=== PATIENT | female | born 1955 | race Caucasian/White ===

== ENCOUNTER 2020-10-02 11:45 | Outpatient (REF) | payer OTHER, SELFPAY ==
[2020-10-02 12:38] LABS: Creatinine Urine 40.76 mg/dL; Microalbum/Creatinine Ratio Ur 14.7 ug/mg cr
== END 2020-10-02 11:46 | disposition home or self-care (01) ==
LOC: HO.LNP 11:45
PROVIDERS: Internal Medicine; Visit Provider Hospitalist
DX: N39.0 Urinary tract infection, site not specified (principal)
CPT/HCPCS: 82043; 87086

== ENCOUNTER 2020-11-06 10:33 | Outpatient (REF) | payer OTHER, SELFPAY | END 2020-11-06 10:34 | disposition home or self-care (01) | LOC: HO.LAB 10:33 | PROVIDERS: Visit Provider Nurse Practitioner Family | DX: R30.0 Dysuria (principal) | CPT/HCPCS: 87086 ==

== ENCOUNTER 2020-11-24 15:11 | Outpatient (REF) | payer OTHER, SELFPAY ==
--- NOTE | 2020-11-24 15:17 | XR_ITS ---
EXAMINATION: XR CHEST CLINICAL INFORMATION: Wheezing. COMPARISON: None TECHNIQUE: 2 views of the chest were obtained. FINDINGS: The lungs are well-expanded with increased bilateral interstitial markings. No confluent infiltrate seen. There is no pleural effusion. Heart size is enlarged. Pulmonary vascularity is prominent. No gross bony abnormality seen. XR/XR chest 2V IMPRESSION: Prominent vascular and interstitial markings suggestive of congestion. Mild cardiomegaly.
== END 2020-11-24 15:12 | disposition home or self-care (01) ==
LOC: HO.HMGCX 15:11
PROVIDERS: PCP Internal Medicine; Visit Provider Nurse Practitioner Family
DX: R06.2 Wheezing (principal); R07.81 Pleurodynia
CPT/HCPCS: 71046

== ENCOUNTER 2021-01-07 06:52 | Outpatient (REF) | payer MEDICARE, MEDICAID, SELFPAY ==
[2021-01-07 11:25] LABS: Estimated Average Glucose 131 mg/dL; Hemoglobin A1c % 6.2 %
[2021-01-07 11:56] LABS: Alanine Aminotransferase 19 U/L (0-31); Albumin Level 4.1 g/dL (3.5-5.0); Alkaline Phosphatase 101 U/L (39-117); Aspartate Amino Transferase 21 U/L (5-31); Bilirubin Direct 0.2 mg/dL (0.0-0.5); Bilirubin Total 0.5 mg/dL (0.0-1.0); Cholesterol 156 mg/dL; HDL Cholesterol 47 mg/dL; LDL Cholesterol Calculated 83 mg/dl; Triglycerides 134 mg/dL
== END 2021-01-07 06:53 | disposition home or self-care (01) ==
LOC: HO.HMGCLDS 06:52
PROVIDERS: PCP Internal Medicine; Visit Provider Internal Medicine
DX: E11.9 Type 2 diabetes mellitus without complications (principal); E78.5 Hyperlipidemia, unspecified
CPT/HCPCS: 36415; 80061; 80076; 83036

== ENCOUNTER 2021-04-20 09:26 | Outpatient (REF) | payer MEDICARE, MEDICAID, SELFPAY | END 2021-04-20 09:27 | disposition home or self-care (01) | LOC: HO.LAB 09:26 | PROVIDERS: Visit Provider Nurse Practitioner Family | DX: R30.0 Dysuria (principal) | CPT/HCPCS: 87086 ==

== ENCOUNTER 2021-05-28 07:40 | Outpatient (REF) | payer MEDICARE, MEDICAID, SELFPAY ==
[2021-05-28 11:45] LABS: Estimated Average Glucose 143 mg/dL; Hemoglobin A1c % 6.6 %
[2021-05-28 11:49] LABS: Alanine Aminotransferase 23 U/L (0-31); Anion Gap 13 (12-20); Aspartate Amino Transferase 27 U/L (5-31); Blood Urea Nitrogen 15 mg/dL (9-16); Calcium 9.1 mg/dL (8.4-10.2); Carbon Dioxide 27 mmol/L (22-29); Chloride 106 mmol/L (96-108); Cholesterol 162 mg/dL; Estimated Glomerular Filt Rate > 60; Glucose Fasting 159 mg/dL (60-99); HDL Cholesterol 44 mg/dL; LDL Cholesterol Calculated 91 mg/dl; Potassium 4.9 mmol/L (3.3-5.1); Sodium 141 mmol/L (135-145); Triglycerides 135 mg/dL
[2021-05-28 12:13] LABS: Vitamin D 25-OH Total 29.5 ng/mL (>30)
[2021-05-28 16:56] LABS: Creatinine Urine 110.67 mg/dL; Microalbum/Creatinine Ratio Ur 17.1 ug/mg cr
== END 2021-05-28 07:41 | disposition home or self-care (01) ==
LOC: HO.HMGCLDS 07:40
PROVIDERS: PCP Internal Medicine; Visit Provider Internal Medicine
DX: E11.9 Type 2 diabetes mellitus without complications (principal); E78.5 Hyperlipidemia, unspecified; M85.80 Other specified disorders of bone density and structure, unspecified site; Z78.0 Asymptomatic menopausal state; I10 Essential (primary) hypertension
CPT/HCPCS: 36415; 80048; 80061; 82043; 82306; 83036; 84450; 84460

== ENCOUNTER 2021-07-20 09:17 | Outpatient (REF) | payer MEDICARE, MEDICAID, SELFPAY ==
--- NOTE | ~2021-07-20 | MM_ITS ---
EXAMINATION: BONE DENSITOMETRY CLINICAL INDICATION: Other specified disorders of bone density and structure. COMPARISON: Previous BD dated 12/09/2016 and baseline BD dated 04/29/2009. TECHNIQUE: Using a [employer] DXA System (software version: 13.1) manufactured by [employer], dual-energy x-ray absorptiometry was performed of the lumbar spine and left hip. The images are of good technical quality. Summary results are attached. FINDINGS: AP SPINE L2-L3 (excluding L1 and L4): The data of L1-L4 has been changed to exclude the L1 and L4 vertebral bodies, because degenerative changes at these levels may cause overestimation of lumbar spine density. Current: BMD 1.073 g/cm2, Z-score -0.6, T-score -1.1, osteopenia, 7.3% increase from previous, 9.0% increase from baseline (<5% change is not significant). Prior: BMD 1.000 g/cm2. Baseline: BMD 0.984 g/cm2. LEFT FEMUR, NECK: Current: BMD 0.689 g/cm2, Z-score -1.8, T-score -2.5, osteoporosis. Prior: BMD 0.743 g/cm2. Baseline: BMD 0.701 g/cm2. LEFT FEMUR, TOTAL: Current: BMD 0.732 g/cm2, Z-score -1.8, T-score -2.2, osteopenia, 6.4% decrease from previous, 1.0% increase from baseline (<5% change is not significant). Prior: BMD 0.782 g/cm2. Baseline: BMD 0.725 g/cm2. IDENTIFIED RISK FACTORS: Early menopause, secondary osteoporosis, history of fracture (adult), osteoporosis, height loss, hysterectomy, bilateral oophorectomy. HISTORY OF FRACTURE: Wrist. Lower leg. MEDICATIONS: Calcium supplements or multivitamin, vitamin D. MM/XR DEXA axial skeleton IMPRESSION: 1. DIAGNOSIS: Osteoporosis based on the lowest T-score value of -2.5 in the femoral neck applying World Health Organization criteria. 2. 10-YEAR FRACTURE RISK PREDICTION, FRAX: Major osteoporotic fracture (clinical spine, forearm, hip or shoulder) 18.2%. Hip fracture 3.6%. 3. Treatment Recommendations: NOF guidelines recommend consideration for treatment in postmenopausal women and men age 50 and older presenting with the following: -A hip or vertebral (clinical or morphometric) fracture. -T-score less than or equal to -2.5 at the femoral neck or spine after appropriate evaluation to exclude secondary causes. -Low bone mass at the hip or spine and a 10-year fracture probability by FRAX of greater than or equal to 3% for hip fracture or greater than or equal to 20% for major osteoporotic fracture based on the [place] adapted WHO algorithm. 4. Other Recommendations: All treatment decisions require clinical judgment and consideration of individual patient factors, including patient preferences, comorbidities, previous drug use, risk factors not captured in the FRAX model (e.g. frailty, falls, vitamin D deficiency, increased bone turnover, interval significant decline in bone density) and possible under or overestimation of fracture risk by FRAX. Additional medical evaluation for secondary cause of low bone mineral density may be appropriate. FUTURE SCAN RECOMMENDATION: People with diagnosed cases of osteoporosis or at high risk for fracture should have regular bone mineral density tests. For patients eligible for Medicare, routine testing is allowed once every 2 years. The testing frequency can be increased to one year for patients who have rapidly progressing disease, those who are receiving or discontinuing medical therapy to restore bone mass, or have additional risk factors.
== END 2021-07-20 09:18 | disposition home or self-care (01) ==
LOC: HO.MAMMO 09:17
PROVIDERS: PCP Internal Medicine; Visit Provider Internal Medicine
DX: Z13.820 Encounter for screening for osteoporosis (principal); M81.0 Age-related osteoporosis without current pathological fracture; Z78.0 Asymptomatic menopausal state; Z79.899 Other long term (current) drug therapy; Z87.81 Personal history of (healed) traumatic fracture
CPT/HCPCS: 77080

== ENCOUNTER 2021-08-02 11:57 | Outpatient (REF) | payer MEDICARE, MEDICAID, SELFPAY | END 2021-08-02 11:58 | disposition home or self-care (01) | LOC: HO.LNP 11:57 | PROVIDERS: Visit Provider Hospitalist | DX: R30.0 Dysuria (principal) | CPT/HCPCS: 87086; 87088; 87186 ==

== ENCOUNTER 2021-09-06 08:35 | Outpatient (REF) | payer MEDICARE, MEDICAID, SELFPAY ==
[2021-09-06 11:51] LABS: Estimated Average Glucose 137 mg/dL; Hemoglobin A1c % 6.4 %
[2021-09-06 12:13] LABS: Alanine Aminotransferase 21 U/L (0-31); Anion Gap 12 (12-20); Aspartate Amino Transferase 23 U/L (5-31); Blood Urea Nitrogen 11 mg/dL (9-16); Carbon Dioxide 29 mmol/L (22-29); Chloride 107 mmol/L (96-108); Cholesterol 164 mg/dL; Estimated Glomerular Filt Rate > 60; Glucose Fasting 136 mg/dL (60-99); HDL Cholesterol 43 mg/dL; LDL Cholesterol Calculated 88 mg/dl; Potassium 4.6 mmol/L (3.3-5.1); Sodium 143 mmol/L (135-145); Triglycerides 165 mg/dL
[2021-09-06 12:14] LABS: Vitamin D 25-OH Total 31.3 ng/mL (>30)
== END 2021-09-06 08:36 | disposition home or self-care (01) ==
LOC: HO.HMGCLDS 08:35
PROVIDERS: PCP Internal Medicine; Visit Provider Internal Medicine
DX: M85.80 Other specified disorders of bone density and structure, unspecified site (principal); E11.9 Type 2 diabetes mellitus without complications; E78.5 Hyperlipidemia, unspecified; I10 Essential (primary) hypertension; Z78.0 Asymptomatic menopausal state
CPT/HCPCS: 36415; 80048; 80061; 82306; 83036; 84450; 84460

== ENCOUNTER 2021-09-30 11:08 | Outpatient (REF) | payer MEDICARE, MEDICAID, SELFPAY | END 2021-09-30 11:09 | disposition home or self-care (01) | LOC: HO.LNP 11:08 | PROVIDERS: Visit Provider Physician Assistant Medical | DX: N39.0 Urinary tract infection, site not specified (principal); R31.9 Hematuria, unspecified | CPT/HCPCS: 87086; 87088 ==

== ENCOUNTER 2021-10-05 10:49 | Emergency (ER) | payer MEDICARE, MEDICAID, SELFPAY ==
[2021-10-05 10:56] VITALS: BP 178/122; PULSE 92; O2SAT 96
[2021-10-05 12:30] VITALS: BP 161/81; PULSE 85; RESP 18; TEMP 36.5; O2SAT 98; BMI 43.5
[2021-10-05 13:42] LABS: Appearance Urine HAZY; Color Urine YELLOW; Glucose Urine UA NEG (NEG); Leukocyte Esterase Urine 2+ (NEG); Nitrite Urine NEG (NEG); UACC Culture Trigger YES; Urine Blood 2+ (NEG); Urine Ketones NEG (NEG); Urine Protein 2+ MG/DL (NEG-TRACE)
[2021-10-05 13:51] LABS: Squamous Epithelial Cell Urine 1+ /LPF
[2021-10-05 13:52] LABS: UACC CULT YES
[2021-10-05 13:54] LABS: Amorphous Sediment Urine 2+ /LPF
[2021-10-05 13:56] LABS: Bacteria Urine 2+ /LPF
--- NOTE | 2021-10-05 15:48 | ED.FEMALEGU ---
HPI - Female Genitourinary General Chief complaint: Urogenital-Female Stated complaint: ? UTI Time Seen by Provider: 10/05/21 15:13 Source: patient Mode of arrival: ambulatory Limitations: no limitations History of Present Illness HPI Narrative: 65 yo female of recurrent UTIs, diabetes, osteoarthritis, HLD, seasonal allergies, chronic low back pain who presenting for evaluation of ongoing urinary symptoms for the last 1 week to 10 days. She was seen in urgent care clinic on September 30 when she started to have dysuria and urinary frequency. She was diagnosed with the UTI and started on Macrobid. She was not having any improvement with the prescribed antibiotics. The provider from the urgent care called her yesterday who told her urine test grew bacteria but to stop taking the prescribed antibiotics she was instructed to go back to the urgent care in 2 days to repeat urine test once ?the antibiotics for out of her system.? Patient states she could not wait another 2 days to get treatment. She reports ongoing burning with urination and urinary frequency. She has no flank pain or back pain. She has no fever, chills, nausea vomiting. No abdominal pain. MD elicited complaint: dysuria and UTI Pertinent past history: recurrent UTIs Onset (ago): week(s) Location of symptoms: suprapubic Severity: moderate Female Urogenital Radiation: Suprapubic Severity scale (1-10): 7 Quality of pain: burning Consistency: constant Vaginal discharge: none Vaginal bleeding: none Urinary symptoms: Dysuria, Urgency, Frequency and Foul Smelling Urine Exacerbating factors: urination Relieving factors: none Associated symptoms: denies other symptoms Treatment prior to arrival: none Sexual activity: No Patient : No Related Data Home Medications Medication Instructions Recorded Confirmed montelukast 10 mg tablet 10 mg PO BEDTIME 08/20/20 05/31/21 omega-3 fatty acids 1,000 mg 2,000 mg PO DAILY 08/20/20 05/31/21 capsule flu vac [id number] 36mos up(PF) ml IM 10/02/20 05/31/21 Previous Rx's Medication Instructions Recorded blood sugar diagnostic (FreeStyle See Rx Instructions .ROUTE DAILY 11/17/20 Lite Strips) #50 strip levocetirizine 5 mg tablet 5 mg PO BEDTIME #30 tab 11/17/20 ketotifen fumarate 0.025 % (0.035 1 drp OPHTHALMIC (EYE) Q12H PRN #5 01/11/21 %) eye drops ml nabumetone 750 mg tablet 750 mg PO DAILY PRN #30 tab 02/03/21 albuterol sulfate 90 mcg/actuation 2 puff INHALATION QID PRN #8.5 g 05/19/21 aerosol inhaler (Ventolin HFA) metformin 500 mg tablet,extended 500 mg PO DAILY #90 tab 06/21/21 release 24 hr atorvastatin 10 mg tablet 10 mg PO . every other day 90 Days 09/01/21 #45 tab cholecalciferol (vitamin D3) 50 50 mcg PO DAILY #90 cap 09/09/21 mcg (2,000 unit) capsule nitrofurantoin 100 mg PO Q12H 7 Days #14 cap 09/30/21 monohydrate/macrocrystals 100 mg capsule (Macrobid) levofloxacin 500 mg tablet 500 mg PO DAILY #10 tab 10/05/21 Allergies Allergy/AdvReac Type Severity Reaction Status Date / Time No Known Allergies Allergy Verified 08/02/21 09:28 [No Known Allergies*] pollen Allergy Intermediate nasal Uncoded 10/02/20 10:06 congestion Review of Systems Review of Systems: Constitutional: No Fever, No Chills Cardiovascular: No Chest Pain, No SOB Gastrointestinal: No Nausea, No Vomiting, No Diarrhea, No abdominal Pain Genitourinary: + Dysuria, + Urinary Frequency, No Hematuria, +Urinary urgency Musculoskeletal: No joint pain, No Myalgias Skin: No Skin Lesions, No rash Neuro: No Dizziness, No Headache Heme/Lymph: No Bruising, No Lymphadenopathy Endocrine: No Polyuria, No Polydipsia PMFSH Past Medical History Medical History Allergic conjunctivitis Dyslipidemia Herniation of lumbar intervertebral disc with radiculopathy History of cervical cancer Osteoarthritis of knees, bilateral Osteopenia Paresthesia of skin Postmenopause Pulmonary nodule, right Seasonal allergic rhinitis Type 2 diabetes mellitus without complication, with no history of insulin use Surgical History History of cholecystectomy History of lumbar laminectomy Hx of total hysterectomy Family History Family History Father Coronary artery disease COPD (chronic obstructive pulmonary disease) Mother Diabetes mellitus Hypertension Daughter Breast cancer Mental health disorder Sister Breast cancer Social History Social History Alcohol intake: never Patient Tobacco Use Status: Former Tobacco user Tobacco use type: Cigarette Years Smoked: 21 e-Cigarette/Vaping Use: Never Used Second Hand Smoke Exposure: No Advance Directives: No Advance Directives Information Provided: No Patient : No Physical Exam Vital Signs: Vital Signs: Last Vital Signs Temp 98.2 F 10/05/21 16:17 Pulse 86 10/05/21 16:17 Resp 16 10/05/21 16:17 BP 166/86 H 10/05/21 16:17 Pulse Ox 96 10/05/21 16:17 Body Mass Index 43.5 Appearance: Alert. Oriented X3. No acute distress. HEENT: normal external inspection. Neck: Normal inspection. Neck supple. CVS: Normal heart rate and rhythm. Pulses normal. Respiratory: No respiratory distress. Breath sounds normal. Abdomen: Obese, soft and nontender. +BS x4 no CVA tenderness. Skin: Skin warm and dry. Normal skin color. Normal skin turgor. No rashes. Extremities: Normal inspection, normal range of motion. Neuro: Oriented X 3. Grossly normal, nonfocal. Course Course Course Narrative: 65-year-old female presenting to the ER with ongoing urinary symptoms off of antibiotics, with a known UTI. Her urine culture from 09-30 is growing aerococcus urinae and aerococcus viridans. These bacteria are typically susceptible to nitrofurantoin however there is growing antibiotic resistance. Attempted to call the lab to add on sensitivities, however her urine has been discarded. A repeat urine has been sent and is consistent with ongoing infection. Will plan to treat for a full 10 days with Levaquin as this is a known antibiotic to cover these bacteria. She reports in the past she has required treatment with a 10 day course of antibiotics. She has an appoint with her primary care doctor next month. We discussed signs and symptoms of ascending urinary tract infection that should prompt urgent re-evaluation and she expressed understanding. She is stable for discharge home with oral antibiotics, 1st dose given here. MDM - Female Genitourinary Lab Data Labs: Lab Results 10/05/21 Range/Units 13:35 Urine Color YELLOW Urine Appearance HAZY Urine pH 7.0 (5.0-8.0) Ur Specific [place] 1.010 (1.005-1.025) Urine Protein 2+ H (NEG-TRACE) MG/DL Urine Glucose (UA) NEG (NEG) MG/DL Urine Ketones NEG (NEG) MG/DL Urine Blood 2+ H (NEG) Urine Nitrite NEG (NEG) Ur Leukocyte Esterase 2+ H (NEG) Urine RBC 10-14 H (0) /HPF Urine WBC 10-14 H (0-4) /HPF Ur Squamous Epith Cells 1+ /LPF Amorphous Sediment 2+ /LPF Urine Bacteria 2+ /LPF Discharge Plan Discharge Clinical Impression: Acute UTI Patient Disposition: Home, Self-Care Instructions: Urinary Tract Infection in Women (ED) Additional Instructions: Take the prescribed antibiotic as directed, starting tomorrow. Your given the 1st dose in the ER. Drink plenty of fluid, stay hydrated. If you have continuing worsening symptoms or develops any vomiting, fevers, middle back pain or flank pain come back to the ER for re-evaluation of a possible kidney infection. Prescriptions: New levofloxacin 500 mg tablet 500 mg PO DAILY Qty: 10 RF: 0 No Action levocetirizine 5 mg tablet 5 mg PO BEDTIME Qty: 30 RF: 4 blood sugar diagnostic [FreeStyle Lite Strips] Strip See Rx Instructions .ROUTE DAILY Qty: 50 RF: 8 nabumetone 750 mg tablet 750 mg PO DAILY PRN (Reason: for pain) Qty: 30 RF: 1 albuterol sulfate [Ventolin HFA] 90 mcg/actuation HFA aerosol inhaler 2 puff inhalation QID PRN (Reason: shortness of breath or wheezing) Qty: 8.5 RF: 4 metformin 500 mg tablet extended release 24 hr 500 mg PO DAILY Qty: 90 RF: 2 atorvastatin 10 mg tablet 10 mg PO . every other day 90 Days Qty: 45 RF: 2 cholecalciferol (vitamin D3) 50 mcg (2,000 unit) capsule 50 mcg PO DAILY Qty: 90 RF: 2 montelukast 10 mg tablet 10 mg PO BEDTIME RF: 0 omega-3 fatty acids 1,000 mg capsule 2,000 mg PO DAILY RF: 0 ketotifen fumarate 0.025 % (0.035 %) drops 1 drp ophthalmic (eye) Q12H PRN (Reason: allergy symptoms) Qty: 5 RF: 0 Afluria Qd 2018-(3yr up)(PF) 60 mcg (15 mcg x 4)/0.5 mL syringe IM RF: 0 nitrofurantoin monohyd/m-cryst [Macrobid] 100 mg capsule 100 mg PO Q12H 7 Days Qty: 14 RF: 0 Interventions: ED Discharge Assessment Last Done: 10/05/21 16:25 Discharge Date/Time: 10/05/21 16:26
[2021-10-05 16:17] VITALS: BP 166/86; PULSE 86; RESP 16; TEMP 36.8; O2SAT 96
[2021-10-05] MEDS: levoFLOXacin 750 MG TABLET PO (16:17)
== END 2021-10-05 16:26 | disposition home or self-care (01) ==
PROVIDERS: Emergency Provider Emergency Medicine; PCP Internal Medicine
DX: N39.0 Urinary tract infection, site not specified (principal); R30.0 Dysuria; F17.210 Nicotine dependence, cigarettes, uncomplicated; Z71.6 Tobacco abuse counseling; Z79.899 Other long term (current) drug therapy
CPT/HCPCS: 81001; 87086; 99283; 99284

== ENCOUNTER 2021-10-26 16:33 | Outpatient (REF) | payer MEDICARE, MEDICAID, SELFPAY | END 2021-10-26 16:34 | disposition home or self-care (01) | LOC: HO.LNP 16:33 | PROVIDERS: Visit Provider Internal Medicine | DX: N39.0 Urinary tract infection, site not specified (principal) | CPT/HCPCS: 87086 ==

== ENCOUNTER 2021-12-01 10:10 | Outpatient (REF) | payer MEDICARE, MEDICAID, SELFPAY ==
--- NOTE | ~2021-12-01 | US_ITS ---
EXAMINATION: US RETROPERITONEAL LIMITED (RENAL ONLY) CLINICAL INFORMATION: Urinary tract infection, site not specified. COMPARISON: Renal ultrasound 05/29/2015. Chest CT scans most recent April 2019. TECHNIQUE: Real-time imaging of the kidneys. FINDINGS: RIGHT KIDNEY: 12.0 x 5.3 x 7.5 cm (SAG x AP x TRV). The kidney is normal in size, contour, and echogenicity. Renal cortical thickness is normal. There is moderate right hydronephrosis and dilatation of the visualized right proximal ureter. No renal calculi or focal parenchymal lesions. LEFT KIDNEY: 13.1 x 4.7 x 5.6 cm (SAG x AP x TRV). The kidney is normal in size, contour, and echogenicity. Renal cortical thickness is normal. There is mild left hydronephrosis. No renal calculi or focal parenchymal lesions. US/US renal BI IMPRESSION: Bilateral hydronephrosis, right greater than left. This is new from previous exams.
== END 2021-12-01 10:11 | disposition home or self-care (01) ==
LOC: HO.HMGCX 10:10
PROVIDERS: Visit Provider Internal Medicine
DX: R10.30 Lower abdominal pain, unspecified (principal); N39.0 Urinary tract infection, site not specified
CPT/HCPCS: 76775

== ENCOUNTER 2021-12-27 08:45 | Outpatient (REF) | payer MEDICARE, MEDICAID, SELFPAY ==
[2021-12-27 11:40] LABS: Blood Urea Nitrogen 10 mg/dL (9-16); Estimated Glomerular Filt Rate > 60
== END 2021-12-27 08:46 | disposition home or self-care (01) ==
LOC: HO.HMGCLDS 08:45
PROVIDERS: Visit Provider Urology
DX: N13.39 Other hydronephrosis (principal)
CPT/HCPCS: 36415; 82565; 84520

== ENCOUNTER 2022-05-12 07:49 | Outpatient (REF) | payer MEDICARE, MEDICAID, SELFPAY ==
[2022-05-12 11:30] LABS: Estimated Average Glucose 131 mg/dL; Hemoglobin A1c % 6.2 %
[2022-05-12 11:32] LABS: Alanine Aminotransferase 17 U/L (0-31); Anion Gap 12 (12-20); Aspartate Amino Transferase 19 U/L (5-31); Blood Urea Nitrogen 12 mg/dL (9-16); Calcium 8.6 mg/dL (8.4-10.2); Carbon Dioxide 29 mmol/L (22-29); Chloride 105 mmol/L (96-108); Cholesterol 157 mg/dL; Estimated Glomerular Filt Rate > 60; Glucose Fasting 149 mg/dL (60-99); HDL Cholesterol 44 mg/dL; LDL Cholesterol Calculated 91 mg/dl; Potassium 4.3 mmol/L (3.3-5.1); Sodium 142 mmol/L (135-145); Triglycerides 111 mg/dL
[2022-05-12 11:38] LABS: Creatinine Urine 77.27 mg/dL; Microalbum/Creatinine Ratio Ur 494.3 ug/mg cr
[2022-05-12 11:52] LABS: Vitamin D 25-OH Total 27.4 ng/mL (>30)
== END 2022-05-12 07:50 | disposition home or self-care (01) ==
LOC: HO.HMGCLDS 07:49
PROVIDERS: Visit Provider Internal Medicine
DX: E11.9 Type 2 diabetes mellitus without complications (principal); E78.5 Hyperlipidemia, unspecified; M85.852 Other specified disorders of bone density and structure, left thigh; I10 Essential (primary) hypertension; Z78.0 Asymptomatic menopausal state
CPT/HCPCS: 36415; 80048; 80061; 82043; 82306; 83036; 84450; 84460

== ENCOUNTER 2022-09-19 08:33 | Outpatient (REF) | payer MEDICARE, MEDICAID, SELFPAY ==
[2022-09-19 12:27] LABS: Alanine Aminotransferase 15 U/L (0-31); Anion Gap 18 (12-20); Aspartate Amino Transferase 22 U/L (5-31); Blood Urea Nitrogen 18 mg/dL (9-16); Carbon Dioxide 28 mmol/L (22-29); Chloride 101 mmol/L (96-108); Cholesterol 172 mg/dL; Estimated Glomerular Filt Rate > 60; Glucose Fasting 119 mg/dL (60-99); HDL Cholesterol 52 mg/dL; LDL Cholesterol Calculated 93 mg/dl; Potassium 4.5 mmol/L (3.3-5.1); Sodium 142 mmol/L (135-145); Triglycerides 139 mg/dL
[2022-09-19 12:32] LABS: Creatinine Urine 111.32 mg/dL; Estimated Average Glucose 131 mg/dL; Hemoglobin A1c % 6.2 %; Microalbum/Creatinine Ratio Ur 110.4 ug/mg cr
== END 2022-09-19 08:34 | disposition home or self-care (01) ==
LOC: HO.HMGCLDS 08:33
PROVIDERS: PCP Internal Medicine; Visit Provider Internal Medicine
DX: M85.852 Other specified disorders of bone density and structure, left thigh (principal); E11.9 Type 2 diabetes mellitus without complications; E78.5 Hyperlipidemia, unspecified
CPT/HCPCS: 36415; 80048; 80061; 82043; 82306; 83036; 84450; 84460

== ENCOUNTER 2023-01-16 08:34 | Outpatient (REF) | payer MEDICARE, MEDICAID, SELFPAY ==
[2023-01-16 12:09] LABS: Creatinine Urine 124.93 mg/dL; Microalbum/Creatinine Ratio Ur 63.2 ug/mg cr
[2023-01-16 12:36] LABS: Alanine Aminotransferase 13 U/L (0-31); Anion Gap 12 (12-20); Aspartate Amino Transferase 17 U/L (5-31); Blood Urea Nitrogen 13 mg/dL (9-16); Calcium 8.9 mg/dL (8.4-10.2); Carbon Dioxide 28 mmol/L (22-29); Chloride 106 mmol/L (96-108); Cholesterol 107 mg/dL; Estimated Glomerular Filt Rate > 60; Glucose Fasting 117 mg/dL (60-99); HDL Cholesterol 41 mg/dL; LDL Cholesterol Calculated 50 mg/dl; Potassium 4.2 mmol/L (3.3-5.1); Sodium 142 mmol/L (135-145); Triglycerides 82 mg/dL
[2023-01-16 12:40] LABS: Estimated Average Glucose 128 mg/dL; Hemoglobin A1c % 6.1 %
[2023-01-16 12:44] LABS: Vitamin D 25-OH Total 34.9 ng/mL (>30)
== END 2023-01-16 08:35 | disposition home or self-care (01) ==
LOC: HO.HMGCLDS 08:34
PROVIDERS: PCP Internal Medicine; Visit Provider Internal Medicine
DX: E11.9 Type 2 diabetes mellitus without complications (principal); E78.5 Hyperlipidemia, unspecified; M85.80 Other specified disorders of bone density and structure, unspecified site; Z78.0 Asymptomatic menopausal state
CPT/HCPCS: 36415; 80048; 80061; 82043; 82306; 83036; 84450; 84460

== ENCOUNTER 2023-03-10 08:03 | Outpatient (REF) | payer MEDICARE, MEDICAID, SELFPAY ==
[2023-03-10 12:33] LABS: Anion Gap 12 (12-20); Blood Urea Nitrogen 17 mg/dL (9-16); Calcium 8.9 mg/dL (8.4-10.2); Carbon Dioxide 31 mmol/L (22-29); Chloride 105 mmol/L (96-108); Estimated Glomerular Filt Rate > 60; Glucose Fasting 123 mg/dL (60-99); Potassium 4.6 mmol/L (3.3-5.1); Sodium 143 mmol/L (135-145)
== END 2023-03-10 08:04 | disposition home or self-care (01) ==
LOC: HO.HMGCLDS 08:03
PROVIDERS: PCP Internal Medicine; Visit Provider Internal Medicine
DX: I48.91 Unspecified atrial fibrillation (principal); E11.9 Type 2 diabetes mellitus without complications
CPT/HCPCS: 36415; 80048

== ENCOUNTER 2023-06-08 07:24 | Outpatient (REF) | payer MEDICARE, MEDICAID, SELFPAY ==
[2023-06-08 11:12] LABS: MANUAL DIFF FLAG NO
[2023-06-08 11:52] LABS: Basophils Absolute Auto 0.1 X10*3/uL (0.0-0.2); Eosinophils Absolute Auto 0.2 X10*3/uL (0.0-0.4); Eosinophils Percent Auto 3.1 % (0-4); Hematocrit 39.9 % (37.0-47.0); Hemoglobin 12.4 g/dl (12.0-16.0); Imm Gran Abs Auto 0.26 X10*3/uL (0.00-0.03); Imm Gran Pct Auto 4.5 % (0.0-0.4); Lymphocytes Absolute Auto 1.4 X10*3/uL (1.2-4.9); Lymphocytes Percent Auto 24.6 % (20-40); Mean Corpuscular HGB Conc 31.1 g/dl (31.0-35.0); Mean Corpuscular Hemoglobin 30.5 pg (27.0-33.0); Monocytes Absolute Auto 0.5 X10*3/uL (0.1-1.2); Monocytes Percent Auto 7.8 % (2-11); Neutrophils Absolute Auto 3.4 x10*3/uL (2.0-8.3); Platelet Count 200 X10*3/uL (160-400); Red Blood Count 4.07 X10*6/uL (4.20-5.50); Red Cell Distribution Width 14.2 % (11.0-16.0); White Blood Count 5.8 X10*3/uL (4.8-10.8)
[2023-06-08 14:20] LABS: Estimated Average Glucose 108 mg/dL; Hemoglobin A1c % 5.4 %
[2023-06-08 14:30] LABS: Alanine Aminotransferase 14 U/L (0-31); Anion Gap 13 (12-20); Aspartate Amino Transferase 18 U/L (5-31); Blood Urea Nitrogen 20 mg/dL (9-16); Calcium 9.3 mg/dL (8.4-10.2); Carbon Dioxide 29 mmol/L (22-29); Chloride 105 mmol/L (96-108); Cholesterol 166 mg/dL; Estimated Glomerular Filt Rate > 60; Glucose Fasting 116 mg/dL (60-99); HDL Cholesterol 56 mg/dL; LDL Cholesterol Calculated 90 mg/dl; Potassium 5.1 mmol/L (3.3-5.1); Sodium 142 mmol/L (135-145); Triglycerides 104 mg/dL; Vitamin D 25-OH Total 31.3 ng/mL (>30)
== END 2023-06-08 07:25 | disposition home or self-care (01) ==
LOC: HO.HMGCLDS 07:24
PROVIDERS: PCP Internal Medicine; Visit Provider Internal Medicine
DX: E11.9 Type 2 diabetes mellitus without complications (principal); E78.5 Hyperlipidemia, unspecified; Z78.0 Asymptomatic menopausal state
CPT/HCPCS: 36415; 80048; 80061; 82306; 83036; 84450; 84460; 85025

== ENCOUNTER 2023-06-13 10:39 | Outpatient (AMB) | payer MEDICARE, MEDICAID, SELFPAY ==
--- NOTE | 2023-06-13 11:40 | A.OFFPC_ITS ---
Vital Signs 06/13/23 11:53 Height 5 ft 6 in Weight 248 lb BMI 40.0 BP 122/64 Blood Pressure Location Lt brachial Position Sitting Pulse 70 Pulse Source Pulse Oximeter Pulse Oximetry (%) 95 Oxygen Delivery Method Room Air Intake Visit Reasons: dm,lipids,htn Intake Note: Pt is here today to f/u DM, lipids and HTN Allergies No Known Allergies [No Known Allergies*] Allergy (Verified 10/25/23 14:33) pollen Allergy (Intermediate, Uncoded 10/25/23 14:33) nasal congestion Medication List - Last Reconciled 06/13/23 by Ramona Damico MD albuterol sulfate 90 mcg/actuation 2 puffs inhalation Q6H PRN amiodarone 400 mg PO DAILY apixaban (Eliquis) 5 mg PO Q12H atorvastatin 10 mg PO . every other day 90 days blood sugar diagnostic (FreeStyle Lite Strips) Check fasting blood sugar daily daily; cholecalciferol (vitamin D3) 50 mcg PO DAILY furosemide 20 mg PO QAM metformin ER 500 mg PO DAILY methenamine hippurate 1 g PO BID mirabegron ER (Myrbetriq) 50 mg PO DAILY omega-3 fatty acids 2,000 mg PO DAILY Tobacco use date assessed: 06/13/23 Fall risk assessment: No Falls in past year Last assessed Fall Risk: 06/13/23 Dental Screening Dental Screen Date: 06/13/23 Did you have a dental visit in the last 12 months?: No Was dental information given to patient?: Patient has dentist HPI dm,lipids,htn HPI Details 67-year-old lady here today for follow-u p of her diabetes mellitus, hyperlipidemia and hypertension. She is currently taking metformin ER 500 mg once a day, [place] 3 fatty acid supplements 2000 mg daily in addition to atorvastatin 10 mg taken every other day, and is also on furosemide 20 mg in a.m. [facility] Medical History (Updated 12/15/23 @ 06:07 by Ramona Damico MD) Diabetes mellitus with microalbuminuria, without long-term current use of insulin History of cardioversion History of atrial fibrillation Urinary bladder incontinence Recurrent UTI (urinary tract infection) Postmenopause Pulmonary nodule, right Osteoarthritis of knees, bilateral Paresthesia of skin History of cervical cancer Herniation of lumbar intervertebral disc with radiculopathy Seasonal allergic rhinitis Osteopenia Dyslipidemia Surgical History History of cholecystectomy History of lumbar laminectomy Hx of total hysterectomy Family History Father Coronary artery disease COPD (chronic obstructive pulmonary disease) Mother Diabetes mellitus Hypertension Daughter Breast cancer Mental health disorder Sister Breast cancer Social History Housing: Apartment Alcohol intake: never Patient Tobacco Use Status: Former Tobacco user Tobacco use type: Cigarette Years Smoked: 21 e-Cigarette/Vaping Use: Never Used Second Hand Smoke Exposure: No Current occupational status: retired Cognitive needs: No Hearing needs: No Vision needs: Yes Questionnaire Thrive Questionnaire Date Thrive assessed: 01/18/23 ROB-7 AMB Questionnaire ROB-7 Date ROB - 7 assessed: 01/18/23 Source: Developed by Drs. Adalid Butler, Sosa Hayes, Pio Alex and colleagues, with an educational carrie from [employer]. Review of Systems Const Denies fever(s) and Denies headache(s) Eyes Details: Overdue for her diabetes retinopathy screening Denies change in vision ENT Denies dizziness, Denies headache(s), Denies nasal congestion, Denies nasal discharge and Denies sore throat Card Denies chest pain, Denies lightheadedness, Denies palpitations and Denies dyspnea Resp Denies chest congestion, Denies cough, Denies dyspnea and Denies wheezing GI Denies change in bowel habits Details: Currently seeing Dr. Stoner her urologist for recurrent urinary tract infection Musc Reports as per HPI, Reports abnormal gait, Denies numbness and Reports stiffness Skin/Breast Denies breast mass, Denies lesions and Denies rash Neuro Reports abnormal gait, Denies dizziness, Denies headache(s) and Denies numbness Endo Denies polydipsia, Denies polyuria and Denies palpitations Scottie/Lymph Denies easy bruising Aller/Immun Denies seasonal rhinorrhea and Denies wheezing Physical exam (Primary Care) Vital Signs: Last Vital Signs Pulse 70 06/13/23 11:53 BP 122/64 06/13/23 11:53 Pulse Ox 95 06/13/23 11:53 Oxygen Delivery Method Room Air 06/13/23 11:53 BMI result Body Mass Index 40.0 Tobacco/Smoking Status: Tobacco use Status Tobacco use date assessed 06/13/23 06/13/23 11:42 Patient Tobacco Use Status Former Tobacco user 06/13/23 11:42 Tobacco use type Cigarette 06/13/23 11:42 e-Cigarette/Vaping Use Never Used 06/13/23 11:42 Thrive Assessment: Date of Thrive Assessment Date Thrive assessed 01/18/23 06/13/23 11:42 Const Other: Alert oriented x3, no acute distress noted, morbidly obese, ambulatory with aid of walker and grandson present in room [facility] Mouth: Normal oral and palatal mucosa present and moist mucous membranes Eyes General: appearance normal, both eyes and all related structures Neck Neck: Yes normal visual inspection, Yes full ROM, Yes no lymphadenopathy and Yes supple Resp Auscultation: clear to auscultation bilaterally Cardio Other: S1-S2 present regular rate and rhythm GI Other: Normal bowel sounds, soft, nontender General: Yes no CVA tenderness Back/Spine/Pelvis Back: no CVA tenderness and No back tenderness Skin General skin exam: no rashes or lesions noted Neuro General: moves all extremities, Normal light touch and pain sensation, no focal motor deficits and CN's II-XI intact bilaterally Extrem General: Yes full ROM, Yes no pedal edema, Yes no calf tenderness and Yes normal gait Results Reviewed Results Reviewed: SPEC : [id number] YI: 06/08/23 STATUS: COMP REQ : [id number] RECD: 06/08/[address]: Ramona Damico MD COMP: 06/08/23 ENTERED: 06/08/[address] [facility] [address]: ORDERED: CBC Auto Diff Test Result Flag Reference Site WBC 5.8 4.8-10.8 X10* 3/uL RBC 4.07 L 4.20-5.50 X10*6/uL HGB 12.4 12.0-16.0 g/dl HCT 39.9 37.0-47.0 % MCV 98.0 80.0-98.0 fL MCH 30.5 27.0-33.0 pg MCHC 31.1 31.0-35.0 g/dl RDW 14.2 11.0-16.0 % PLT 200 160-400 X10*3/uL MPV 11.0 9.4-12.3 fL Neut Pct Auto 59.0 45-73 % ImGran Pct Auto 4.5 H 0.0-0.4 % Lymp Pct Auto 24.6 20-40 % Clare Pct Auto 7.8 2-11 % Eos Pct Auto 3.1 0-4 % Baso Pct Auto 1.0 0-2 % NRBC Pct Auto 0.0 0.0-0.2 /100WBC ANC Neut Abs # 3.4 2.0-8.3 x10*3/uL ImGran Abs Auto 0.26 H 0.00-0.03 X10*3/uL Lymph Abs Auto 1.4 1.2-4.9 X10*3/uL Clare Abs Auto 0.5 0.1-1.2 X10*3/uL Eos Abs Auto 0.2 0.0-0.4 X10*3/uL Baso Abs Auto 0.1 0.0-0.2 X10*3/uL NRBC Abs Auto 0.000 0.0-0.012 X10*3/uL ENTERED: 06/08/[address] [facility] [address]: ORDERED: Met Prof Fast, AST, ALT, Lipid Panel, Vitamin D 25-OH Test Result Flag Reference Site Sodium 142 135-145 mmol/L Potassium 5.1 3.3-5.1 mmol/L CL 105 96-108 mmol/L CO2 29 22-29 mmol/L Gap 13 12-20 BUN 20 H 9-16 mg/dL Creat 0.88 0.5-1.4 mg/dL EGFR > 60 NOTE: For -[place] individuals, multiply the result by 1.210. Chronic Kidney Disease: Estimated GFR < 60 mL/min/1.73m2 Severe Kidney Disease: Estimated GFR < 15 mL/min/1.73m2 FBS 116 H 60-99 mg/dL A fasting glucose from 100-125 mg/dl is considered impaired (pre-diabetes). CA 9.3 8.4-10.2 mg/dL AST (GOT) 18 5-31 U/L ALT (GPT) 14 0-31 U/L Triglyceride 104 mg/dL Desirable Triglyceride: less than 150 mg/dL Borderline High Triglyceride 150-199 mg/dL High Triglyceride: 200-499 mg/dL Very High Triglyceride: greater than or equal to 5OO mg/dL Chol 166 mg/dL Desirable Cholesterol: less than 200 mg/dL Borderline High Cholesterol: 200-239 mg/dL High Cholesterol: greater than 239 mg/dL LDL Calculated 90 mg/dl Desirable LDL: less than 100 mg/dL Near Optimal/Above Optimal LDL: 110-129 mg/dL Borderline High LDL: 130-159 mg/dL High LDL: 160-189 mg/dL Very High LDL: greater than or equal to 190 mg/dL HDL 56 mg/dL Desirable HDL: greater than 40 mg/dL Note: This HDL assay may give artificially low results in patients with liver disease. Vit D 25-OH Tot 31.3 >30 ng/mL Health Based Reference Values* < 20 ng/mL Deficient 20-30 ng/mL Insufficient > 30 ng/mL Sufficient Laboratory Tests 06/08/23 07:28 Estimat Average Glucose 108 Hemoglobin A1c % 5.4 SPEC : [id number] YI: 01/16/23 STATUS: COMP REQ : [id number] RECD: 01/16/[address]: Ramona Damico MD COMP: 01/16/23 ENTERED: 01/16/[address]: ORDERED: MICARU Test Result Flag Reference Creat, Ur 124.93 mg/dL Microalbumin Ur 79.0 mg/L Alb/Creat Ratio 63.2 ug/mg cr Albumin/Creatinine Ratio Reference Ranges: Normal: < 30 ug/mg creatinine Microalbuminuria: 30 - 300 ug/mg creatinine Clinical Albuminuria: > 300 ug/mg creatinine Assessment and Plan Assessment & Plan (1) Diabetes mellitus with microalbuminuria, without long-term current use of insulin: Code(s): E11.29 - Type 2 diabetes mellitus with other diabetic kidney complication; R80.9 - Proteinuria, unspecified Qualifiers: Diabetes mellitus type: type 2 Qualified Code(s): E11.29 - Type 2 diabetes mellitus with other diabetic kidney complication; R80.9 - Proteinuria, unspecified Plan: Recent lab results reviewed with patient, with sugar and hemoglobin A1c stable and at goal with hemoglobin A1c at 5.4%. Continue with metformin ER 500 mg once a day. Reinforced diabetic diet and regular exercise with patient. Counseled regarding importance of yearly diabetes retinopathy screening. Patient advised to inspect feet daily, for any signs of injury, callus or infection. Compliance with diet and regular exercise again stressed. Blood pressure goal is less than 130/80, goal LDL is less than 100 and goal hemoglobin A1c is less than 7% follow-up appointment made in-3--months, after fasting labs done. She is currently using furosemide only for blood pressure control and to control swelling in her legs, advised to be started on an JULIO-inhibitor due to presence of micro albuminuria, but patient declined at present time (2) Dyslipidemia: Code(s): E78.5 - Hyperlipidemia, unspecified Plan: Reviewed recent fasting lipid profile with patient with levels at goal with LDL cholesterol less than 100 mg/dL . Continue with [place] 3 fatty acid supplements and atorvastatin 10 mg 1 tablet every other day , in addition to adherence to low-cholesterol diet and regular exercise, at least 30 minutes 3 to 4 times a week. Advised patient to make healthy food choices, eat more fruits, vegetables, whole grains, wild caught fish and low-fat dairy. Limit amount of meat and fried or fatty food products, as well as processed foods and fast foods. Follow-up scheduled with repeat fasting lipid panel in 3 months. Under get her COVID booster and yearly flu shot, up-to-date with Prevnar 20 and Tdap, recommend also to get shingles vaccine Orders: Orders Basic Metabolic Panel Fasting 3 Months E11.9 - Type 2 diabetes mellitus without complications, E78.5 - Hyperlipidemia, unspecified Hemoglobin A1c 3 Months E11.9 - Type 2 diabetes mellitus without complications, E78.5 - Hyperlipidemia, unspecified Lipid Panel 3 Months E11.9 - Type 2 diabetes mellitus without complications, E78.5 - Hyperlipidemia, unspecified Alanine Aminotransferase 3 Months E11.9 - Type 2 diabetes mellitus without complications, E78.5 - Hyperlipidemia, unspecified Aspartate Amino Transferase 3 Months E11.9 - Type 2 diabetes mellitus without complications, E78.5 - Hyperlipidemia, unspecified Coding Level of Care Code Est Pt Level 4 (00420) Diagnoses Type 2 diabetes mellitus with microalbuminuria, without long-term current use of insulin E11.29; R80.9 Diabetes mellitus type: type 2 Dyslipidemia E78.5
[2023-06-13 11:53] VITALS: BP 122/64; PULSE 70; O2SAT 95; BMI 40.0
== END 2023-06-13 12:24 | disposition home or self-care (01) ==
PROVIDERS: Visit Provider Internal Medicine
DX: E11.29 Type 2 diabetes mellitus with other diabetic kidney complication (principal); R80.9 Proteinuria, unspecified; E78.5 Hyperlipidemia, unspecified
CPT/HCPCS: 99214

== ENCOUNTER 2023-09-11 08:39 | Outpatient (REF) | payer MEDICARE, MEDICAID, SELFPAY ==
[2023-09-11 11:59] LABS: Estimated Average Glucose 105 mg/dL; Hemoglobin A1c % 5.3 % (<6.0)
[2023-09-11 12:05] LABS: Alanine Aminotransferase 20 U/L (0-31); Anion Gap 14 (12-20); Aspartate Amino Transferase 21 U/L (5-31); Blood Urea Nitrogen 15 mg/dL (9-16); Calcium 9.5 mg/dL (8.4-10.2); Carbon Dioxide 28 mmol/L (22-29); Chloride 104 mmol/L (96-108); Cholesterol 161 mg/dL (<200); Estimated Glomerular Filt Rate > 60; Glucose Fasting 105 mg/dL (60-99); HDL Cholesterol 65 mg/dL (>40); LDL Cholesterol Calculated 78 mg/dL (<100); Potassium 4.2 mmol/L (3.3-5.1); Sodium 142 mmol/L (135-145); Triglycerides 92 mg/dL (<150)
== END 2023-09-11 08:40 | disposition home or self-care (01) ==
LOC: HO.HMGCLDS 08:39
PROVIDERS: PCP Internal Medicine; Visit Provider Internal Medicine
DX: E11.9 Type 2 diabetes mellitus without complications (principal); E78.5 Hyperlipidemia, unspecified
CPT/HCPCS: 36415; 80048; 80061; 83036; 84450; 84460

== ENCOUNTER 2023-10-25 13:39 | Outpatient (AMB) | payer MEDICARE, MEDICAID, SELFPAY ==
[2023-10-25 14:16] VITALS: BP 136/78; PULSE 76; O2SAT 96
--- NOTE | 2023-10-25 14:16 | MHC.PC.OV ---
Vital Signs 10/25/23 14:16 Height 5 ft 6 in BMI Reason not done Palliative Care Patient BP 136/78 Blood Pressure Location Rt brachial Position Sitting Pulse 76 Pulse Source Pulse Oximeter Pulse Oximetry (%) 96 Oxygen Delivery Method Room Air Intake Visit Reasons: [facility] sciatic nerve pain Intake Note: Pt was seen at [facility] ER for sciatic nerve pain and wants to follow up for her lab results Allergies No Known Allergies [No Known Allergies*] Allergy (Verified 10/25/23 14:33) pollen Allergy (Intermediate, Uncoded 10/25/23 14:33) nasal congestion Medication List - Last Reconciled 10/25/23 by Ramona Damico MD albuterol sulfate 90 mcg/actuation 2 puffs inhalation Q6H PRN amiodarone 400 mg PO DAILY apixaban (Eliquis) 5 mg PO Q12H atorvastatin 10 mg PO . every other day 90 days blood sugar diagnostic (FreeStyle Lite Strips) Check fasting blood sugar daily daily; cholecalciferol (vitamin D3) 50 mcg PO DAILY furosemide 20 mg PO QAM metformin ER 500 mg PO DAILY methenamine hippurate 1 g PO BID mirabegron ER (Myrbetriq) 50 mg PO DAILY omega-3 fatty acids 2,000 mg PO DAILY Tobacco use date assessed: 10/25/23 Fall risk assessment: No Falls in past year Last assessed Fall Risk: 10/25/23 Dental Screening Dental Screen Date: 10/25/23 Did you have a dental visit in the last 12 months?: No Did you have a dental problem in the last 6 months where you did not have access to dental care?: No Was dental information given to patient?: No HPI [facility] sciatic nerve pain HPI Details Six 7-year-old lady with diabetes mellitus, atrial fibrillation on Eliquis, history of recurrent UTI currently being followed at urology by Dr. Stoner, history of dependent edema on Lasix, here today for follow-up after recent ER visit at [facility], for left-sided sciatica. Ultrasound of left lower extremity showed no evidence of DVT, blood work came back unremarkable. She was prescribed tramadol 50 mg to take 3 to 4 times a day as needed for severe pain and was also prescribed Decadron twice a day for the next 3 days afterwards. Patient states that the pain has now resolved from the lower back but is now felt more towards the anterolateral aspect of her left lower extremity up-to-date ankle. She has tried massaging arthritis cream, applied alternating ice and heat packs to affected area which affords not much improvement. She states that the pain would usually regular but night, described as a throbbing sensation. She has tried taking Tylenol arthritis strength as well with she has not afforded any relief. She is also here to discuss results of recent fasting labs done which showed diabetes mellitus is well controlled with a hemoglobin A1c at 5.3% and fasting lipids are within normal limits. [facility] Medical History History of cardioversion History of atrial fibrillation Atrial fibrillation Urinary bladder incontinence Lower abdominal pain Recurrent UTI (urinary tract infection) Postmenopause Allergic conjunctivitis Pulmonary nodule, right Osteoarthritis of knees, bilateral Paresthesia of skin History of cervical cancer Herniation of lumbar intervertebral disc with radiculopathy Seasonal allergic rhinitis Osteopenia Type 2 diabetes mellitus without complication, with no history of insulin use Dyslipidemia Surgical History History of cholecystectomy History of lumbar laminectomy Hx of total hysterectomy Family History Father Coronary artery disease COPD (chronic obstructive pulmonary disease) Mother Diabetes mellitus Hypertension Daughter Breast cancer Mental health disorder Sister Breast cancer Social History Housing: Apartment Alcohol intake: never Patient Tobacco Use Status: Former Tobacco user Tobacco use type: Cigarette Years Smoked: 21 e-Cigarette/Vaping Use: Never Used Second Hand Smoke Exposure: No Current occupational status: retired Cognitive needs: No Hearing needs: No Vision needs: Yes Questionnaire Thrive Questionnaire Date Thrive assessed: 01/18/23 ROB-7 AMB Questionnaire ROB-7 Date ROB - 7 assessed: 01/18/23 Source: Developed by Drs. Adalid Butler, Sosa Hayes, Pio Alex and colleagues, with an educational carrie from [employer]. Review of Systems Const Denies fever(s), Denies headache(s) and Reports weight gain Eyes Denies change in vision ENT Denies dizziness, Denies headache(s), Denies nasal congestion, Denies nasal discharge and Denies sore throat Card Denies chest pain, Denies lightheadedness, Denies palpitations and Denies dyspnea Resp Denies chest congestion, Denies cough, Denies dyspnea and Denies wheezing GI Denies change in bowel habits Details: Currently seeing Dr. Stoner her urologist for recurrent urinary tract infection Musc Reports as per HPI, Reports abnormal gait, Denies numbness and Reports stiffness Skin/Breast Denies breast mass, Denies lesions and Denies rash Neuro Reports abnormal gait, Denies dizziness, Denies headache(s) and Denies numbness Endo Denies polydipsia, Denies polyuria and Denies palpitations Scottie/Lymph Denies easy bruising Aller/Immun Denies seasonal rhinorrhea and Denies wheezing Physical exam (Primary Care) Vital Signs: Last Vital Signs Pulse 76 10/25/23 14:16 BP 136/78 10/25/23 14:16 Pulse Ox 96 10/25/23 14:16 Oxygen Delivery Method Room Air 10/25/23 14:16 Tobacco/Smoking Status: Tobacco use Status Tobacco use date assessed 10/25/23 10/25/23 14:22 Patient Tobacco Use Status Former Tobacco user 10/25/23 14:18 Tobacco use type Cigarette 10/25/23 14:18 e-Cigarette/Vaping Use Never Used 10/25/23 14:18 Thrive Assessment: Date of Thrive Assessment Date Thrive assessed 01/18/23 10/25/23 14:18 Const Other: Alert oriented x3, no acute distress noted, morbidly obese, ambulatory with aid of walker and grandson present in room Nutritional Appearance: obese morbidly obese Orientation/consciousness: patient oriented x3 HENIL Mouth: Normal oral and palatal mucosa present and moist mucous membranes Eyes General: appearance normal, both eyes and all related structures Neck Neck: Yes normal visual inspection, Yes full ROM, Yes no lymphadenopathy and Yes supple Resp Auscultation: clear to auscultation bilaterally Cardio Other: S1-S2 present regular rate and rhythm GI Other: Normal bowel sounds, soft, nontender General: Yes no CVA tenderness Back/Spine/Pelvis Back: no CVA tenderness and No back tenderness Skin General skin exam: no rashes or lesions noted Neuro General: patient oriented x3, moves all extremities, Normal light touch and pain sensation, no focal motor deficits and CN's II-XI intact bilaterally Extrem Other: Tightness and tenderness with mild swelling on palpation over anterolateral aspect of left lower extremity Results Reviewed Results Reviewed: ENTERED: 09/11/23 ALANA [facility]OR[facility]: ORDERED: Met Prof Fast, AST, ALT, Lipid Panel Test Result Flag Reference Site Sodium 142 135-145 mmol/L Potassium 4.2 3.3-5.1 mmol/L CL 104 96-108 mmol/L CO2 28 22-29 mmol/L Gap 14 12-20 BUN 15 9-16 mg/dL Creat 0.82 0.5-1.4 mg/dL EGFR > 60 NOTE: For -[place] individuals, multiply the result by 1.210. Chronic Kidney Disease: Estimated GFR < 60 mL/min/1.73m2 Severe Kidney Disease: Estimated GFR < 15 mL/min/1.73m2 FBS 105 H 60-99 mg/dL A fasting glucose from 100-125 mg/dl is considered impaired (pre-diabetes). CA 9.5 8.4-10.2 mg/dL AST (GOT) 21 5-31 U/L ALT (GPT) 20 0-31 U/L Triglyceride 92 <150 mg/dL Desirable Triglyceride: less than 150 mg/dL Borderline High Triglyceride 150-199 mg/dL High Triglyceride: 200-499 mg/dL Very High Triglyceride: greater than or equal to 5OO mg/dL Cholesterol 161 <200 mg/dL Desirable Cholesterol: less than 200 mg/dL Borderline High Cholesterol: 200-239 mg/dL High Cholesterol: greater than 239 mg/dL LDL Calculated 78 <100 mg/dL Desirable LDL: less than 100 mg/dL Near Optimal/Above Optimal LDL: 110-129 mg/dL Borderline High LDL: 130-159 mg/dL High LDL: 160-189 mg/dL Very High LDL: greater than or equal to 190 mg/dL HDL 65 >40 mg/dL Desirable HDL: greater than 40 mg/dL Note: This HDL assay may give artificially Laboratory Tests 09/11/23 08:50 Estimat Average Glucose 105 Hemoglobin A1c % 5.3 Assessment and Plan Assessment & Plan (1) Pain in left leg: Code(s): M79.605 - Pain in left leg Plan: Ordered a venous Doppler ultrasound of left lower extremity to rule out DVT. If negative will refer for physical therapy. Short course of oxycodone was prescribed g per tablet to take 1 tablet twice a day as needed for moderate to severe pain, please try combining it with Tylenol 325 mg per tablet. (2) Type 2 diabetes mellitus without complication, with no history of insulin use: Code(s): E11.9 - Type 2 diabetes mellitus without complications Plan: Diabetes mellitus stable and well controlled with present treatment, currently on metformin ER 500 mg once a day. Reminded to get her COVID B and will be well pneumonia in 3 months (3) Dyslipidemia: Code(s): E78.5 - Hyperlipidemia, unspecified Plan: Reviewed recent fasting lipid profile with patient with levels within normal limits except for low HDL cholesterol . Continue with atorvastatin 10 mg every other day , in addition to adherence to low-cholesterol diet and regular exercise, at least 30 minutes 3 to 4 times a week. Advised patient to make healthy food choices, eat more fruits, vegetables, whole grains, wild caught fish and low-fat dairy. Limit amount of meat and fried or fatty food products, as well as processed foods and fast foods. Follow-up scheduled with repeat fasting lipid panel in 3 months. Orders: Orders US venous duplex LE LT Today M79.605 - Pain in left leg Basic Metabolic Panel Fasting 01/01/24 E11.9 - Type 2 diabetes mellitus without complications, E78.5 - Hyperlipidemia, unspecified, M79.605 - Pain in left leg, M85.80 - Other specified disorders of bone density and structure, unspecified site, Z78.0 - Asymptomatic menopausal state, Z86.79 - Personal history of other diseases of the circulatory system Microalbumin, Random (w Creat) 01/01/24 E11.9 - Type 2 diabetes mellitus without complications, E78.5 - Hyperlipidemia, unspecified, M79.605 - Pain in left leg, M85.80 - Other specified disorders of bone density and structure, unspecified site, Z78.0 - Asymptomatic menopausal state, Z86.79 - Personal history of other diseases of the circulatory system Hemoglobin and Hematocrit 01/01/24 E11.9 - Type 2 diabetes mellitus without complications, E78.5 - Hyperlipidemia, unspecified, M79.605 - Pain in left leg, M85.80 - Other specified disorders of bone density and structure, unspecified site, Z78.0 - Asymptomatic menopausal state, Z86.79 - Personal history of other diseases of the circulatory system Hemoglobin A1c 01/01/24 E11.9 - Type 2 diabetes mellitus without complications, E78.5 - Hyperlipidemia, unspecified, M79.605 - Pain in left leg, M85.80 - Other specified disorders of bone density and structure, unspecified site, Z78.0 - Asymptomatic menopausal state, Z86.79 - Personal history of other diseases of the circulatory system Alanine Aminotransferase 01/01/24 E11.9 - Type 2 diabetes mellitus without complications, E78.5 - Hyperlipidemia, unspecified, M79.605 - Pain in left leg, M85.80 - Other specified disorders of bone density and structure, unspecified site, Z78.0 - Asymptomatic menopausal state, Z86.79 - Personal history of other diseases of the circulatory system Aspartate Amino Transferase 01/01/24 E11.9 - Type 2 diabetes mellitus without complications, E78.5 - Hyperlipidemia, unspecified, M79.605 - Pain in left leg, M85.80 - Other specified disorders of bone density and structure, unspecified site, Z78.0 - Asymptomatic menopausal state, Z86.79 - Personal history of other diseases of the circulatory system Lipid Panel 01/01/24 E11.9 - Type 2 diabetes mellitus without complications, E78.5 - Hyperlipidemia, unspecified, M79.605 - Pain in left leg, M85.80 - Other specified disorders of bone density and structure, unspecified site, Z78.0 - Asymptomatic menopausal state, Z86.79 - Personal history of other diseases of the circulatory system Vitamin D 25-OH Total 01/01/24 E11.9 - Type 2 diabetes mellitus without complications, E78.5 - Hyperlipidemia, unspecified, M79.605 - Pain in left leg, M85.80 - Other specified disorders of bone density and structure, unspecified site, Z78.0 - Asymptomatic menopausal state, Z86.79 - Personal history of other diseases of the circulatory system Medications: New oxycodone Partial Fill upon patient request. 5 mg PO BID PRN 14 tabs 0RF pain, severe Coding Level of Care Code Est Pt Level 4 (01016) Diagnoses Pain in left leg M79.605 Type 2 diabetes mellitus without complication, with no history of insulin use E11.9 Dyslipidemia E78.5
== END 2023-10-25 15:51 | disposition home or self-care (01) ==
PROVIDERS: PCP Internal Medicine; Visit Provider Internal Medicine
DX: M79.605 Pain in left leg (principal); E11.9 Type 2 diabetes mellitus without complications; E78.5 Hyperlipidemia, unspecified
CPT/HCPCS: 99214

== ENCOUNTER 2023-10-25 15:05 | Outpatient (REF) | payer MEDICARE, MEDICAID, SELFPAY ==
--- NOTE | ~2023-10-25 | US_ITS ---
EXAMINATION: US VENOUS ULTRASOUND WITH DOPPLER LOWER EXTREMITY, LEFT CLINICAL INFORMATION: Pain COMPARISON: None available. TECHNIQUE: Ultrasound of the deep veins is performed from the hip to the calf with compression sonography and color and pulse Doppler assessment. Spectral analysis with color-flow imaging is performed. FINDINGS: There is normal venous compression and respiratory variation and augmented flow. The visualized common femoral vein, superficial femoral vein, profunda femoral vein, popliteal vein, and the trifurcation region shows no evidence of deep venous thrombosis. There is no significant popliteal fossa cyst. If the patient's symptoms persist, followup ultrasound in 5 days 7 days might be of value to exclude proximal propagation from a non-visualized calf vein. US/US venous duplex LE LT IMPRESSION: No DVT demonstrated in the left lower extremity.
== END 2023-10-25 15:06 | disposition home or self-care (01) ==
LOC: HO.HMGCX 15:05
PROVIDERS: PCP Internal Medicine; Visit Provider Internal Medicine
DX: M79.605 Pain in left leg (principal)
CPT/HCPCS: 93971

== ENCOUNTER 2023-12-25 11:33 | Outpatient (REF) | payer MEDICARE, MEDICAID, SELFPAY ==
[2023-12-25 13:33] LABS: Hematocrit 38.1 % (37.0-47.0); Hemoglobin 12.3 g/dl (12.0-16.0)
[2023-12-25 13:45] LABS: Estimated Average Glucose 114 mg/dL; Hemoglobin A1c % 5.6 % (<6.0)
[2023-12-25 14:07] LABS: Alanine Aminotransferase 31 U/L (0-31); Anion Gap 13 (12-20); Aspartate Amino Transferase 41 U/L (5-31); Blood Urea Nitrogen 18 mg/dL (9-16); Carbon Dioxide 25 mmol/L (22-29); Chloride 107 mmol/L (96-108); Cholesterol 154 mg/dL (<200); Estimated Glomerular Filt Rate 55; Glucose Fasting 95 mg/dL (60-99); HDL Cholesterol 55 mg/dL (>40); LDL Cholesterol Calculated 70 mg/dL (<100); Potassium 4.7 mmol/L (3.3-5.1); Sodium 140 mmol/L (135-145); Triglycerides 148 mg/dL (<150); Vitamin D 25-OH Total 28.9 ng/mL (>30)
== END 2023-12-25 11:34 | disposition home or self-care (01) ==
LOC: HO.HMGCLDS 11:33
PROVIDERS: PCP Internal Medicine; Visit Provider Internal Medicine
DX: M79.605 Pain in left leg (principal); M85.80 Other specified disorders of bone density and structure, unspecified site; E11.9 Type 2 diabetes mellitus without complications; E78.5 Hyperlipidemia, unspecified; Z86.79 Personal history of other diseases of the circulatory system; Z78.0 Asymptomatic menopausal state
CPT/HCPCS: 36415; 80048; 80061; 82306; 83036; 84450; 84460; 85014; 85018

== ENCOUNTER 2024-01-22 13:00 | Outpatient (RCR) | payer MEDICARE, MEDICAID, SELFPAY ==
--- NOTE | 2023-12-25 13:55 | MHC.PT.EP ---
[facility] [place] Office [place] Office [place] Office [address] Hannah Brenner [address] [phone] F: [phone] F: [phone] F: [phone] F: [phone] Physical Therapy Plan of Care Date of Evaluation: 12/25/23 Date of Surgery: n/a Diagnosis: pain in L leg Assessment: Patient is a 67 year old female presenting to PT with complaints of pain in L leg pain. Pt reports onset of pain began about 1 month ago due to insidious onset. She presents today with impairments in pain, lumbar ROM, hip strength, LLE strength, posture, gait mechanics. Pt's current occupation is none, with baseline physical activities including ADLs. Pt expresses intermediate frame tender goal of reducing pain, and is motivated to work towards this in PT. Clinical presentation today is most consistent with signs and sx associated with L leg pain with possible contribution from her low back and pt will benefit from skilled PT 2 week x 4 weeks to address the following problems and impairments noted upon evaluation: pain, lumbar ROM, hip strength, LLE strength, posture, gait mechanics. These problems limit the patient with the following functional activities: ADLs. The prescribed treatment plan of care is medically necessary. Co-morbidities of afib, T2DM, hx cervical cancer, on blood thinners were identified and taken into considerations of plan of care. Pt was educated on HEP, role of PT, prognosis, POC. Frequency and Duration: The patient will be seen 2 x week x 4 weeks Short Term Goals: Pt will demonstrate ability to transfer with min to no external assist in 2 weeks. Pt will report pain level <5/10 in 2 weeks for improved QOL. Pt will demonstrate improved LLE strength by 1/3 grade in 2 weeks. 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 Pt will demonstrate ability to complete ADLs at her PLOF with min to no pain in 4 weeks. Pt will demonstrate ability to ambulate household distances with her SC in 4 weeks for return to PLOF. Treatment Plan: Modalities to reduce pain, spasms and effusion. Manual therapy to restore motion and function. Therapeutic exercise to improve strength and flexibility. Neuromuscular re-education for posture and balance. Therapeutic activities to return to functional activities of daily living. Electronically signed by: Alicia Baires, PT, DPT, ATC Please sign and return to therapist. Thank you for your referral.
--- NOTE | 2024-01-29 08:35 | MHC.PT.DC ---
[facility] [place] Office [place] Office [place] Office [address] [phone] F: [phone] F: [phone] F: [phone] F: [phone] Physical Therapy Discharge Report Diagnosis: pain in L leg Date of Surgery: n/a Date of Evaluation: 12/25/23 Date of Discharge: 01/29/24 Treatments to Date: 3 Cancellations to Date: 3 No Shows to Date: 0 Discharge Status: Patient Elected to Stop Discharge Summary: Pt called cancelling her last appointment. Pt states she would like to be d/c. Plan was to d/c at this visit anyway. Electronically signed by: Alicia Baires, PT, DPT, ATC Please sign and return to therapist. Thank you for your referral.
== END 2024-01-29 08:36 | disposition home or self-care (01) ==
LOC: HO.PTCHIC 13:00
PROVIDERS: PCP Internal Medicine; Visit Provider Internal Medicine
DX: M79.605 Pain in left leg (principal)
CPT/HCPCS: 97110; 97162

== ENCOUNTER 2024-03-11 11:33 | Outpatient (AMB) | payer MEDICARE, MEDICAID, SELFPAY ==
[2024-03-11 11:46] VITALS: BP 140/70; PULSE 80; O2SAT 97; BMI 41.0
--- NOTE | 2024-03-11 11:46 | MHC.PC.OV ---
Vital Signs 03/11/24 11:46 Height 5 ft 6 in Weight 254 lb BMI 41.0 BP 140/70 H Blood Pressure Location Lt brachial Position Sitting Pulse 80 Pulse Source Pulse Oximeter Pulse Oximetry (%) 97 Oxygen Delivery Method Room Air Intake Visit Reasons: 2 month follow up Intake Note: Pt is here today for 2 months f/u Allergies No Known Allergies [No Known Allergies*] Allergy (Verified 03/11/24 12:02) pollen Allergy (Intermediate, Uncoded 03/11/24 12:02) nasal congestion Medication List - Last Reconciled 03/11/24 by Ramona Damico MD albuterol sulfate 90 mcg/actuation 2 puffs inhalation Q6H PRN amiodarone 400 mg PO DAILY apixaban (Eliquis) 5 mg PO Q12H atorvastatin 10 mg PO . every other day 90 days blood sugar diagnostic (FreeStyle Lite Strips) Check fasting blood sugar daily daily; cholecalciferol (vitamin D3) 50 mcg PO DAILY cholecalciferol (vitamin D3) 1,250 mcg PO QWEEK 3 months furosemide 20 mg PO QAM gabapentin 600 mg PO BEDTIME metformin ER 500 mg PO DAILY omega-3 fatty acids 2,000 mg PO DAILY sulfamethoxazole-trimethoprim 800-160 mg 1 tab PO DAILY vibegron (Gemtesa) 75 mg PO DAILY Tobacco use date assessed: 03/11/24 Last assessed Fall Risk: 03/11/24 Dental Screening Dental Screen Date: 03/11/24 HPI 2 month follow up HPI Details 68-year-old lady with history of cervical cancer status post radiation with recurrent UTIs, , overactive bladder, 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 Has been compliant with taking her medications, tries to follow recommended diet but limited with her exercise due to recurrent pain in her left lower back radiating down left leg up to ankle. She had a lumbar laminectomy done by Dr. Nathaniel goldberg several years ago, still with lumbar disc herniation with radiculopathy, as noted on MRI done in 2019,, currently going to physical therapy which affords only slight improvement in her symptoms. Still has difficulty walking due to pain in left lower extremity when walking, denies any accompanying urinary or stool incontinence, no weakness. She also has osteoporosis in her lumbar spine as noted on bone density done in 2020. Treatment was deferred at that time as she was having a lot of bladder issues. [facility] Medical History (Updated 03/11/24 @ 23:29 by Ramona Damico MD) Osteoporosis Bladder squamous metaplasia Vitamin D deficiency Diabetes mellitus with microalbuminuria, without long-term current use of insulin History of cardioversion History of atrial fibrillation Urinary bladder incontinence Recurrent UTI (urinary tract infection) Postmenopause Pulmonary nodule, right Osteoarthritis of knees, bilateral Paresthesia of skin History of cervical cancer Herniation of lumbar intervertebral disc with radiculopathy Seasonal allergic rhinitis Dyslipidemia Surgical History History of cholecystectomy History of lumbar laminectomy Hx of total hysterectomy Family History Father Coronary artery disease COPD (chronic obstructive pulmonary disease) Mother Diabetes mellitus Hypertension Daughter Breast cancer Mental health disorder Sister Breast cancer Social History Housing: Apartment Alcohol intake: never Patient Tobacco Use Status: Former Tobacco user Tobacco use type: Cigarette Years Smoked: 21 e-Cigarette/Vaping Use: Never Used Second Hand Smoke Exposure: No Current occupational status: retired Cognitive needs: No Hearing needs: No Vision needs: Yes Questionnaire Thrive Questionnaire Date Thrive assessed: 01/18/23 ROB-7 AMB Questionnaire ROB-7 Date ROB - 7 assessed: 01/18/23 Source: Developed by Drs. Adalid Butler, Sosa Hayes, Pio Alex and colleagues, with an educational carrie from [employer]. Review of Systems Const Denies fever(s), Denies headache(s) and Reports weight gain Eyes Denies change in vision ENT Denies dizziness, Denies headache(s), Denies nasal congestion, Denies nasal discharge and Denies sore throat Card Denies chest pain, Denies lightheadedness, Denies palpitations and Denies dyspnea Resp Denies chest congestion, Denies cough, Denies dyspnea and Denies wheezing GI Denies change in bowel habits Details: Currently seeing Dr. Stoner her urologist for recurrent urinary tract infection Musc Reports as per HPI, Reports abnormal gait, Denies joint swelling, Reports radiating pain into limb (Left lower extremity), Reports stiffness and Reports tingling (Or extra) Skin/Breast Denies breast mass, Denies lesions and Denies rash Neuro Reports abnormal gait, Denies dizziness, Denies headache(s) and Reports tingling (Or extra) Endo Denies polydipsia, Denies polyuria and Denies palpitations Scottie/Lymph Denies easy bruising Aller/Immun Denies seasonal rhinorrhea and Denies wheezing Physical exam (Primary Care) Vital Signs: Last Vital Signs Pulse 80 03/11/24 11:46 BP 140/70 H 03/11/24 11:46 Pulse Ox 97 03/11/24 11:46 Oxygen Delivery Method Room Air 03/11/24 11:46 BMI result Body Mass Index 41.0 Tobacco/Smoking Status: Tobacco use Status Tobacco use date assessed 03/11/24 03/11/24 11:47 Patient Tobacco Use Status Former Tobacco user 03/11/24 11:47 Tobacco use type Cigarette 03/11/24 11:47 e-Cigarette/Vaping Use Never Used 03/11/24 11:47 Thrive Assessment: Date of Thrive Assessment Date Thrive assessed 01/18/23 03/11/24 11:47 Const Other: Alert oriented x3, no acute distress noted, morbidly obese, ambulatory with aid of walker and grandson present in room Nutritional Appearance: obese morbidly obese Orientation/consciousness: patient oriented x3 HENMT Mouth: Normal oral and palatal mucosa present and moist mucous membranes Eyes General: appearance normal, both eyes and all related structures Neck Neck: Yes normal visual inspection, Yes full ROM, Yes no lymphadenopathy and Yes supple Resp Auscultation: clear to auscultation bilaterally Cardio Other: S1-S2 present regular rate and rhythm GI Other: Normal bowel sounds, soft, nontender Back/Spine/Pelvis Thoracic/Lumbar Spine: paraspinal muscle tenderness on the left in the lower lumbar and thoraco-lumbar ROM limited Skin General skin exam: no rashes or lesions noted Neuro General: patient oriented x3, moves all extremities, Normal light touch and pain sensation, no focal motor deficits and CN's II-XI intact bilaterally Extrem Other: Tightness and tenderness with mild swelling on palpation over anterolateral aspect of left lower extremity Results Reviewed Results Reviewed: Laboratory Tests 12/25/23 12/25/23 11:42 11:43 Hgb 12.3 Hct 38.1 Estimat Average Glucose 114 Hemoglobin A1c % 5.6 Name: Lorelei Driscoll Age/Sex: 67/F : 1955 Unit#: [id number] Attend Dr: Ramona Damico MD Re12/25/23 Status: DEP REF Location: [facility] Disch: SPEC : [id number] YI: 12/25/23 STATUS: COMP REQ : [id number] RECD: 12/25/23-[address]: Ramona Damico MD COMP: 12/25/23 ENTERED: 12/25/[address]: ORDERED: Met Prof Fast, AST, ALT, Lipid Panel, Vitamin D 25-OH Test Result Flag Reference Sodium 140 135-145 mmol/L Potassium 4.7 3.3-5.1 mmol/L CL 107 96-108 mmol/L CO2 25 22-29 mmol/L Gap 13 12-20 BUN 18 H 9-16 mg/dL Creat 1.00 0.5-1.4 mg/dL EGFR 55 NOTE: For -[place] individuals, multiply the result by 1.210. Chronic Kidney Disease: Estimated GFR < 60 mL/min/1.73m2 Severe Kidney Disease: Estimated GFR < 15 mL/min/1.73m2 FBS 95 60-99 mg/dL CA 9.0 8.4-10.2 mg/dL AST (GOT) 41 H 5-31 U/L ALT (GPT) 31 0-31 U/L Triglyceride 148 <150 mg/dL Desirable Triglyceride: less than 150 mg/dL Borderline High Triglyceride 150-199 mg/dL High Triglyceride: 200-499 mg/dL Very High Triglyceride: greater than or equal to 5OO mg/dL Cholesterol 154 <200 mg/dL Desirable Cholesterol: less than 200 mg/dL Borderline High Cholesterol: 200-239 mg/dL High Cholesterol: greater than 239 mg/dL LDL Calculated 70 <100 mg/dL Desirable LDL: less than 100 mg/dL Near Optimal/Above Optimal LDL: 110-129 mg/dL Borderline High LDL: 130-159 mg/dL High LDL: 160-189 mg/dL Very High LDL: greater than or equal to 190 mg/dL HDL 55 >40 mg/dL Desirable HDL: greater than 40 mg/dL Note: This HDL assay may give artificially low results in patients with liver disease. Vit D 25-OH Tot 28.9 L >30 ng/mL Health Based Reference Values* < 20 ng/mL Deficient 20-30 ng/mL Insufficient > 30 ng/mL Sufficient Assessment and Plan Assessment & Plan (1) Herniation of lumbar intervertebral disc with radiculopathy: Code(s): M51.16 - Intervertebral disc disorders with radiculopathy, lumbar region Plan: Currently going to physical therapy with minimal pain relief afforded, will order MRI of lumbar spine without contrast. Continue with gabapentin 600 mg at bedtime (2) Dyslipidemia: Code(s): E78.5 - Hyperlipidemia, unspecified Plan: Reviewed recent fasting lipid profile with patient with triglycerides and LDL cholesterol still not at goal. . Advised to take atorvastatin 10 mg daily now inset of every other day , in addition to adherence to low-cholesterol diet . Advised patient to make healthy food choices, eat more fruits, vegetables, whole grains, wild caught fish and low-fat dairy. Limit amount of meat and fried or fatty food products, as well as processed foods and fast foods. Follow-up scheduled with repeat fasting lipid panel in 3 months. (3) Diabetes mellitus with microalbuminuria, without long-term current use of insulin: Code(s): E11.29 - Type 2 diabetes mellitus with other diabetic kidney complication; R80.9 - Proteinuria, unspecified Plan: Diabetes mellitus well controlled with metformin ER 500 mg taken once a day only. Up-to-date with her diabetes retinopathy screening, up-to-date with her vaccinations. Repeat hemoglobin A1c in 3 months (4) Osteoporosis: Code(s): M81.0 - Age-related osteoporosis without current pathological fracture Plan: Will repeat another bone density scan Orders: Orders Alanine Aminotransferase 07/15/24 E11.29 - Type 2 diabetes mellitus with other diabetic kidney complication, E55.9 - Vitamin D deficiency, unspecified, E78.5 - Hyperlipidemia, unspecified, M81.0 - Age-related osteoporosis without current pathological fracture, R80.9 - Proteinuria, unspecified Lipid Panel 07/15/24 E11.29 - Type 2 diabetes mellitus with other diabetic kidney complication, E55.9 - Vitamin D deficiency, unspecified, E78.5 - Hyperlipidemia, unspecified, M81.0 - Age-related osteoporosis without current pathological fracture, R80.9 - Proteinuria, unspecified Vitamin D 25-OH Total 07/15/24 E11.29 - Type 2 diabetes mellitus with other diabetic kidney complication, E55.9 - Vitamin D deficiency, unspecified, E78.5 - Hyperlipidemia, unspecified, M81.0 - Age-related osteoporosis without current pathological fracture, R80.9 - Proteinuria, unspecified XR DEXA axial skeleton Today M81.0 - Age-related osteoporosis without current pathological fracture MR lumbar spine wo con Today M51.16 - Intervertebral disc disorders with radiculopathy, lumbar region Hemoglobin A1c 07/15/24 E11.29 - Type 2 diabetes mellitus with other diabetic kidney complication, E55.9 - Vitamin D deficiency, unspecified, E78.5 - Hyperlipidemia, unspecified, M81.0 - Age-related osteoporosis without current pathological fracture, R80.9 - Proteinuria, unspecified Aspartate Amino Transferase 07/15/24 E11.29 - Type 2 diabetes mellitus with other diabetic kidney complication, E55.9 - Vitamin D deficiency, unspecified, E78.5 - Hyperlipidemia, unspecified, M81.0 - Age-related osteoporosis without current pathological fracture, R80.9 - Proteinuria, unspecified Basic Metabolic Panel Fasting 07/15/24 E11.29 - Type 2 diabetes mellitus with other diabetic kidney complication, E55.9 - Vitamin D deficiency, unspecified, E78.5 - Hyperlipidemia, unspecified, M81.0 - Age-related osteoporosis without current pathological fracture, R80.9 - Proteinuria, unspecified Medications: New cholecalciferol (vitamin D3) 1,250 mcg PO QWEEK 3 months 13 caps 0RF E55.9 - Vitamin D deficiency, unspecified, M85.852 - Other specified disorders of bone density and structure, left thigh Coding Level of Care Code Est Pt Level 4 (96078) Diagnoses Herniation of lumbar intervertebral disc with radiculopathy M51.16 Dyslipidemia E78.5 Diabetes mellitus with microalbuminuria, without long-term current use of insulin ; R80.9 Osteoporosis M81.0
== END 2024-03-11 13:32 | disposition home or self-care (01) ==
LOC: HO.HMGC 11:33
PROVIDERS: PCP Internal Medicine; Visit Provider Internal Medicine
DX: M51.16 Intervertebral disc disorders with radiculopathy, lumbar region (principal); E11.29 Type 2 diabetes mellitus with other diabetic kidney complication; E78.5 Hyperlipidemia, unspecified; R80.9 Proteinuria, unspecified; M81.0 Age-related osteoporosis without current pathological fracture
CPT/HCPCS: 99214

== ENCOUNTER 2024-04-11 12:53 | Outpatient (AMB) | payer MEDICARE, MEDICAID, SELFPAY ==
--- NOTE | 2024-04-11 12:54 | A.SPINEOV_ITS ---
Intake Visit Reasons: disc disorders with radiculopathy, lumbar Intake Note: Ms. Driscoll is here today c/o low back pain. 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 She has a 68-year-old morbidly obese diabetic with a history of 3 previous spinal procedures all done by 30 years ago. She had a grade 3 spondylolisthesis secondary to spondylolysis and underwent decompression and non-instrumented fusion at that time. After the procedure she developed an infection which required her to have debridement and the wound was left open. Subsequently after that she had a 3rd operation with the wound was closed back up. She went on with life and tells me she was generally pretty mobile and independent until about August last year when she noticed abrupt onset of pain shooting down her left buttock, left posterolateral thigh into her outer calf and outer ankle. There is occasional tingling in a similar distribution. Denies any weakness. The pain has been so unbearable she has been to the more emergency room multiple times. Standing and walking are brutal, she can only go for few minutes and she has to sit down. She can barely get around her house at this point and does not even go to the grocery store because she can not leave because of the pain. No symptoms on the right side. At this point she does not have any significant component of back pain. The primary pain generator is the left leg. She underwent about 5 sessions of physical therapy but it made things remarkably worse so she could not continue. She can not take anti-inflammatories or Tylenol because of her Eliquis, so she takes gabapentin and oxycodone. Gabapentin helps her sleep at night but it makes her very drowsy so she does not take it during the day. She is here today with an MRI showing a complicated spondylolisthesis at L5-S1 amongst other degenerative changes in the lumbar spine. She does report history of chronic incontinence related to radiation from cervical cancer she had many many years ago. This is at baseline and unchanged. PMH: History of diabetes, she tells me her A1c is generally less than 6, history of cervical cancer over 30 years ago for which she had a hysterectomy and radiation to her abdomen and this ultimately resulted in dysfunction of her bladder, chronic incontinence and she also tells me she developed problems with her ureter. It sounds like she has strictures and will occasionally need stents. She has chronic urinary tract infections related to all this as well. She is followed [facility]. She takes Bactrim daily as preventative measure. She is history of AFib, on Eliquis. She is followed by . She has a history of cholecystectomy, multiple hernia surgeries. She denies any history of heart attack, stroke, liver problems, kidney failure or kidney disease, major intra-abdominal surgery outside with a hysterectomy. Social hx: She quit smoking many years ago, she does not drink alcohol use any recreational drugs Medications: Amiodarone, Rober Yuki, gabapentin, Bactrim, Eliquis, Lasix, metformin, Lipitor, fish oil, calcium and albuterol Allergies: None Physical exam: Morbidly was female, she is very uncomfortable with just trying to stand up, she walks with a hyperflexed posture at about 45 degrees. She has pain limitations with her left leg with movement. The distal lower extremity strength is normal. Reflexes absent at the patella and the Achilles. Imaging review: She has a lumbar MRI done at [facility] as well as a lumbar CT done a few years before that. It shows a grade 3 spondylolisthesis at L5-S1 with a collapse of vertebral body but appears to be fused at the L5-S1 segment. There is some residual moderate foraminal stenosis, worse on the right at the L5 foramen. She has [id number] bilateral foraminal stenosis at L4 and moderate to severe stenosis at L3-4. Standing flexion-extension x-rays done here in the office today show no signs of instability. There is no new spondylolisthesis at any of these areas above the surgery site. Impression: 60-year-old female morbidly obese, diabetic, history of 3 previous back operations with a postoperative infection, noninstrumented fusion at L5-S1 for a spondylolisthesis and pars defect back in the early . She was doing okay until August of 2023 when she noticed abrupt onset of pain in an L5 distribution going down into her calf and her outer ankle. She tried some basic conservative management. She has not tried any injections at this point yet. The pain has become unbearable, she can barely stand walk around her house, she no longer leaves her house and has to use a walker just to get a few steps down the hallway. She has a complicated spinal situation in that she had a previous surgery in the early with a non-instrumented fusion at L5-S1 with subsequent infection. However, the CT scan done seems to show that the L5-S1 area did indeed fuse. She has almost complete collapse of the L5 vertebral body. This appears stable over time based on imaging and because of this, we do not think it would be the source of an acute onset of symptoms that she describes last August. What we do see that looks like it may be involved with her radiculopathy is moderate to severe stenosis at L3-4 in the central canal. She does also have a left L3-4 foramen disc herniation, but her symptoms do not match with the L3 dermatome. We are thinking that it is possible that the L3-4 stenosis is the source of her symptoms. We would like to have more evidence that it is and will send her for an injection with . We can request an L3-4 epidural versus TFE L4 depending on if he thinks he can logistically get any access to the site with stenosis. This would give us meaningful information and give us indication to do L3-4 decompression. If we ended up doing surgery, we would have to use theMetrx tubes because of her size. I would like to see her back after the injection. She understands that these procedures would him off coming off [employer]. She is done this in the past and understands it does present some stroke risk. Thank you for allowing us to care for your patient. The total time spent with this visit with this patient was 65 minutes reviewing history, physical exam, lumbar imaging review, and implementation of treatment plan or further diagnostic testing Rob Valiente MD,PhD [facility] Orders: Orders XR lumbar spine 4V min Today M51.16 - Intervertebral disc disorders with radiculopathy, lumbar region Referrals Physiatry Referral M51.16 - Intervertebral disc disorders with radiculopathy, lumbar region Coding Level of Care Code New Pt Level 5 (64062) Diagnoses Herniation of lumbar intervertebral disc with radiculopathy M51.16
== END 2024-04-11 14:00 | disposition home or self-care (01) ==
PROVIDERS: PCP Internal Medicine; Referring Provider Internal Medicine; Visit Provider Physician Assistant
DX: M51.16 Intervertebral disc disorders with radiculopathy, lumbar region (principal)
CPT/HCPCS: 99205

== ENCOUNTER 2024-04-11 12:53 | Outpatient (REF) | payer MEDICARE, MEDICAID, SELFPAY ==
--- NOTE | ~2024-04-11 | XR_ITS ---
EXAMINATION: XR LUMBOSACRAL SPINE WITH OBLIQUES CLINICAL INFORMATION: Intervertebral disc disorders. COMPARISON: None available. TECHNIQUE: Limited visualization due to bowel gas and body habitus. 5 views of the lumbar spine are severely limited due to body habitus. FINDINGS: Dextroscoliosis of the lumbar spine. Degenerative changes in the imaged lower thoracic spine with of indeterminate age. Advanced multilevel lumbar spondylosis with multilevel loss of thoracic vertebral body height. There is a transitional lumbosacral vertebral body referred to as S1 for the purposes of this report, difficult to visualize on the AP views, limiting evaluation. There is grade 4 anterolisthesis of L5 on S1. There is grade 1 anterolisthesis of L4 and L5. Advanced atherosclerotic aortoiliac calcifications. Advanced degenerative changes in the imaged lower thoracic spine.. XR/XR lumbar spine 4V min IMPRESSION: 1. Multilevel lumbar spondylosis with severe grade 4 anterolisthesis of L5 on S1 and transitional anatomy. 2. Severely limited visualization.
== END 2024-04-11 12:54 | disposition home or self-care (01) ==
LOC: HO.HOSX 12:53
PROVIDERS: PCP Internal Medicine; Visit Provider Physician Assistant
DX: M51.16 Intervertebral disc disorders with radiculopathy, lumbar region (principal); E66.01 Morbid (severe) obesity due to excess calories
CPT/HCPCS: 72110; 99202

== ENCOUNTER 2024-07-02 10:12 | Outpatient (REF) | payer MEDICARE, MEDICAID, SELFPAY ==
[2024-07-02 13:38] LABS: Hematocrit 38.6 % (37.0-47.0); Hemoglobin 11.9 g/dl (12.0-16.0); Mean Corpuscular HGB Conc 30.8 g/dl (31.0-35.0); Mean Corpuscular Hemoglobin 29.2 pg (27.0-33.0); Mean Corpuscular Volume 94.6 fL (80.0-98.0); Mean Platelet Volume 9.8 fL (9.4-12.3); Platelet Count 388 X10*3/uL (160-400); Red Blood Count 4.08 X10*6/uL (4.20-5.50); Red Cell Distribution Width 15.3 % (11.0-16.0); White Blood Count 9.7 X10*3/uL (4.8-10.8)
[2024-07-02 14:09] LABS: Anion Gap 16 (12-20); Blood Urea Nitrogen 12 mg/dL (9-16); Calcium 8.9 mg/dL (8.4-10.2); Carbon Dioxide 26 mmol/L (22-29); Chloride 104 mmol/L (96-108); Estimated Glomerular Filt Rate > 60; Glucose Random 102 mg/dL (60-115); Potassium 4.5 mmol/L (3.3-5.1); Sodium 141 mmol/L (135-145)
== END 2024-07-02 10:13 | disposition home or self-care (01) ==
LOC: HO.HMGCLDS 10:12
PROVIDERS: PCP Internal Medicine; Visit Provider Urology
DX: N30.41 Irradiation cystitis with hematuria (principal)
CPT/HCPCS: 36415; 80048; 85027

== ENCOUNTER 2024-07-19 10:22 | Outpatient (AMB) | payer MEDICARE, MEDICAID, SELFPAY ==
--- NOTE | 2024-07-19 10:17 | MHC.PC.OV ---
Intake Visit Reasons: f/u [facility] ED [phone] Allergies No Known Allergies [No Known Allergies*] Allergy (Verified 07/19/24 10:40) pollen Allergy (Intermediate, Uncoded 07/19/24 10:40) nasal congestion Medication List - Last Reconciled 07/19/24 by Ramona Damico MD albuterol sulfate 90 mcg/actuation 2 puffs inhalation Q6H PRN amiodarone 400 mg PO DAILY apixaban (Eliquis) 5 mg PO Q12H atorvastatin 10 mg PO . every other day 90 days blood sugar diagnostic (FreeStyle Lite Strips) Check fasting blood sugar daily daily; cholecalciferol (vitamin D3) 50 mcg PO DAILY docusate sodium 100 mg PO BID furosemide 20 mg PO QAM gabapentin 600 mg (2 x 300 mg) PO BEDTIME metformin ER 500 mg PO DAILY omega-3 fatty acids 2,000 mg PO DAILY vibegron (Gemtesa) 75 mg PO DAILY Tobacco use date assessed: 07/19/24 Fall risk assessment: No Falls in past year Last assessed Fall Risk: 07/19/24 Dental Screening Dental Screen Date: 07/19/24 Did you have a dental visit in the last 12 months?: No Did you have a dental problem in the last 6 months where you did not have access to dental care?: No Was dental information given to patient?: Patient declined HPI HPI Comments History of Present Illness Details 68-year-old lady with history of cervical cancer status post radiation, atrial fibrillation, on Eliquis, heart failure with reduced ejection fraction, diabetes mellitus type 2, who was recently seen at the ER complaining of right-sided chest pain after severe bout of coughing. She denies any accompanying fever or chills, no nausea vomiting abdominal pain diarrhea or lower extremity swelling. Patient states that pain in her right side of the chest was worse with coughing and taking a deep breath and had difficulty with movement including when lying flat in bed. Labs done at ER showed negative respiratory panel, with white blood cell count of 11 0.4, troponin at 10 BNP of 196 creatinine 1.2 . Her chest x-ray showed no acute findings, chest CT however showed presence of age indeterminate nondisplaced fracture of the right posterior 12th and 11th rib at the costovertebral junction, right anterior 2nd through 4th ribs and anterior 7th and right lateral 10th rib. Patient denied having had any falls. Her vital signs remained stable, patient was then discharged home and advised to take Tylenol as needed for pain control. At present patient states that pain is bearable on her right side of chest, denies any difficulty with breathing, has been very careful not to lift anything heavy or straining when having a bowel movement [facility] Medical History (Updated 07/19/24 @ 11:01 by Ramona Damico MD) Multiple rib fractures involving four or more ribs Osteoporosis Bladder squamous metaplasia Vitamin D deficiency Diabetes mellitus with microalbuminuria, without long-term current use of insulin History of cardioversion History of atrial fibrillation Urinary bladder incontinence Recurrent UTI (urinary tract infection) Postmenopause Pulmonary nodule, right Osteoarthritis of knees, bilateral Paresthesia of skin History of cervical cancer Herniation of lumbar intervertebral disc with radiculopathy Seasonal allergic rhinitis Dyslipidemia Surgical History History of cholecystectomy History of lumbar laminectomy Hx of total hysterectomy Family History Father Coronary artery disease COPD (chronic obstructive pulmonary disease) Mother Diabetes mellitus Hypertension Daughter Breast cancer Mental health disorder Sister Breast cancer Social History Housing: Apartment Alcohol intake: never Patient Tobacco Use Status: Former Tobacco user Tobacco use type: Cigarette Years Smoked: 21 e-Cigarette/Vaping Use: Never Used Second Hand Smoke Exposure: No Current occupational status: retired Cognitive needs: No Hearing needs: No Vision needs: Yes Questionnaire Thrive Questionnaire Date Thrive assessed: 01/18/23 ROB-7 AMB Questionnaire ROB-7 Date ROB - 7 assessed: 01/18/23 Source: Developed by Drs. Adalid Butler, Sosa Hayes, Pio Alex and colleagues, with an educational carrie from [employer]. Review of Systems Const Denies fever(s) and Denies headache(s) ENT Denies dizziness, Denies headache(s), Denies nasal congestion, Denies nasal discharge and Denies sore throat Card Denies chest pain, Denies lightheadedness, Denies palpitations and Denies dyspnea Resp Denies chest congestion, Denies cough, Reports pain on inspiration (On deep breathing), Denies dyspnea and Denies wheezing GI Denies change in bowel habits Details: Currently seeing Dr. Stoner her urologist for recurrent urinary tract infection Musc Reports as per HPI, Reports abnormal gait, Denies joint swelling and Reports stiffness Skin/Breast Denies lesions and Denies rash Neuro Reports abnormal gait, Denies dizziness and Denies headache(s) Endo Denies polydipsia, Denies polyuria and Denies palpitations Scottie/Lymph Denies easy bruising Aller/Immun Denies seasonal rhinorrhea and Denies wheezing Physical exam (Primary Care) Tobacco/Smoking Status: Tobacco use Status Tobacco use date assessed 07/19/24 07/19/24 10:19 Patient Tobacco Use Status Former Tobacco user 07/19/24 10:19 Tobacco use type Cigarette 07/19/24 10:19 e-Cigarette/Vaping Use Never Used 07/19/24 10:19 Thrive Assessment: Date of Thrive Assessment Date Thrive assessed 01/18/23 07/19/24 10:19 Telehealth Telehealth Telehealth Platform: [employer] Location of provider rendering services: practice address Location of patient: address on file Patient Identification confirmed using: Name, : Yes Telehealth method: video Patient verbally consented to treatment: Yes Patient verbally consented to billing insurance company: Yes Patient informed of any privacy concerns related to visit: Yes Minutes spent on Phone/Video with Pt.: 15 Assessment and Plan Assessment & Plan (1) Osteoporosis: Code(s): M81.0 - Age-related osteoporosis without current pathological fracture Qualifiers: Encounter type: subsequent encounter Fracture healing: with routine healing Osteoporosis type: unspecified Presence of current pathological fracture: with current pathological fracture Qualified Code(s): M80.00XD - Age-related osteoporosis with current pathological fracture, unspecified site, subsequent encounter for fracture with routine healing Plan: Repeat Bone density scan ordered, no treatment initiated during last bone density scan which showed osteoporosis in 2020 as patient has been in and out of the hospital during that time for treatment of multiple medical issues. patient requesting to have it done at [facility] as it is closer to home continue with vitamin-D 3 supplements and adequate calcium from dietary sources (2) Multiple rib fractures involving four or more ribs: Code(s): S22.49XA - Multiple fractures of ribs, unspecified side, initial encounter for closed fracture Plan: Continue with current medication, avoid any straining or any heavy lifting, refill sent for her Colace 100 mg per capsule taken 1 capsule twice a day, continued on gabapentin, refill sent Orders: Orders XR DEXA axial skeleton Today M81.0 - Age-related osteoporosis without current pathological fracture, S22.49XA - Multiple fractures of ribs, unspecified side, initial encounter for closed fracture Medications: New docusate sodium 100 mg PO BID 30 days 60 caps 3RF Refilled gabapentin 600 mg (2 x 300 mg) PO BEDTIME 60 caps 3RF Coding Level of Care Code Tele Est Pt Level 3 (14756) Diagnoses Osteoporosis with current pathological fracture with routine healing, unspecified osteoporosis type, subsequent encounter M80.00XD Encounter type: subsequent encounter Fracture healing: with routine healing Osteoporosis type: unspecified Presence of current pathological fracture: with current pathological fracture Multiple rib fractures involving four or more ribs S22.49XA
== END 2024-07-19 12:28 | disposition home or self-care (01) ==
LOC: HO.HMGC 10:22
PROVIDERS: PCP Internal Medicine; Visit Provider Internal Medicine
DX: M80.00XD Age-related osteoporosis with current pathological fracture, unspecified site, subsequent encounter for fracture with routine healing (principal); S22.41XA Multiple fractures of ribs, right side, initial encounter for closed fracture
CPT/HCPCS: 99213

== ENCOUNTER 2024-08-01 09:17 | Outpatient (REF) | payer OTHER, SELFPAY ==
[2024-08-01 13:45] LABS: Alanine Aminotransferase 51 U/L (0-31); Anion Gap 15 (12-20); Aspartate Amino Transferase 111 U/L (5-31); Blood Urea Nitrogen 15 mg/dL (9-16); Calcium 9.4 mg/dL (8.4-10.2); Carbon Dioxide 27 mmol/L (22-29); Chloride 104 mmol/L (96-108); Cholesterol 165 mg/dL (<200); Estimated Average Glucose 108 mg/dL; Estimated Glomerular Filt Rate 59; Glucose Fasting 108 mg/dL (60-99); HDL Cholesterol 40 mg/dL (>40); Hemoglobin A1c % 5.4 % (<6.0); LDL Cholesterol Calculated 97 mg/dL (<100); Potassium 4.7 mmol/L (3.3-5.1); Sodium 141 mmol/L (135-145); Triglycerides 142 mg/dL (<150)
[2024-08-01 14:02] LABS: Vitamin D 25-OH Total 51.2 ng/mL (>30)
== END 2024-08-01 09:18 | disposition home or self-care (01) ==
LOC: HO.HMGCLDS 09:17
PROVIDERS: PCP Internal Medicine; Visit Provider Internal Medicine
DX: E55.9 Vitamin D deficiency, unspecified (principal); E11.29 Type 2 diabetes mellitus with other diabetic kidney complication; R80.9 Proteinuria, unspecified; E78.5 Hyperlipidemia, unspecified; M81.0 Age-related osteoporosis without current pathological fracture
CPT/HCPCS: 36415; 80048; 80061; 82306; 83036; 84450; 84460

== ENCOUNTER 2024-08-09 08:27 | Outpatient (AMB) | payer OTHER, SELFPAY ==
--- NOTE | 2024-08-09 08:20 | A.OFFPC_ITS ---
Intake Visit Reasons: Follow-up on her diabetes and cholesterol levels Allergies No Known Allergies [No Known Allergies*] Allergy (Verified 08/09/24 08:52) pollen Allergy (Intermediate, Uncoded 08/09/24 08:52) nasal congestion Medication List - Last Reconciled 08/09/24 by Ramona Damico MD albuterol sulfate 90 mcg/actuation 2 puffs inhalation Q6H PRN amiodarone 400 mg PO DAILY apixaban (Eliquis) 5 mg PO Q12H atorvastatin 10 mg PO . every other day 90 days blood sugar diagnostic (FreeStyle Lite Strips) Check fasting blood sugar daily daily; cholecalciferol (vitamin D3) 50 mcg PO DAILY docusate sodium 100 mg PO BID 30 days furosemide 20 mg PO QAM gabapentin 600 mg (2 x 300 mg) PO BEDTIME metformin ER 500 mg PO DAILY omega-3 fatty acids 2,000 mg PO DAILY vibegron (Gemtesa) 75 mg PO DAILY Tobacco use date assessed: 08/09/24 Fall risk assessment: No Falls in past year Last assessed Fall Risk: 08/09/24 Dental Screening Dental Screen Date: 08/09/24 Did you have a dental visit in the last 12 months?: No Did you have a dental problem in the last 6 months where you did not have access to dental care?: No Was dental information given to patient?: No HPI HPI Comments History of Present Illness Details 68-year-ol lady here today for follow-up on her diabetes mellitus and hyperlipidemia. Has been taking her medicines as directed, recent fasting labs showed good control diabetes mellitus and cholesterol levels. She states that she just recently says at positive for COVID, has been feeling bad with abdominal pain, diarrhea and dry cough but no fever, no shortness of breath, no blood in stool or headaches reported. Patient states that the diarrhea has resolved, but still has a lingering cough mostly at night. Has had only 2 COVID vaccines in the past. She has osteoporosis, states that she still has not heard about an appointment for her bone density scan, requesting it to be done at [facility] which is closer to her house. Orders were made for a bone density scan last February and then again another 1 was ordered 07/19/2024, to be done at [place] but patient still has not received any appointment date. She also would like to have her mammogram done at [place] together with a bone density scan. [facility] Medical History Multiple rib fractures involving four or more ribs Osteoporosis Bladder squamous metaplasia Vitamin D deficiency Diabetes mellitus with microalbuminuria, without long-term current use of insulin History of cardioversion History of atrial fibrillation Urinary bladder incontinence Recurrent UTI (urinary tract infection) Postmenopause Pulmonary nodule, right Osteoarthritis of knees, bilateral Paresthesia of skin History of cervical cancer Herniation of lumbar intervertebral disc with radiculopathy Seasonal allergic rhinitis Dyslipidemia Surgical History History of cholecystectomy History of lumbar laminectomy Hx of total hysterectomy Family History Father Coronary artery disease COPD (chronic obstructive pulmonary disease) Mother Diabetes mellitus Hypertension Daughter Breast cancer Mental health disorder Sister Breast cancer Social History Housing: Apartment Alcohol intake: never Patient Tobacco Use Status: Former Tobacco user Tobacco use type: Cigarette Years Smoked: 21 e-Cigarette/Vaping Use: Never Used Second Hand Smoke Exposure: No Current occupational status: retired Cognitive needs: No Hearing needs: No Vision needs: Yes Questionnaire Thrive Questionnaire Date Thrive assessed: 01/18/23 ROB-7 AMB Questionnaire ROB-7 Date ROB - 7 assessed: 01/18/23 Source: Developed by Drs. Adalid Butler, Sosa Hayes, Pio Alex and colleagues, with an educational carrie from [employer]. Review of Systems Const Denies fever(s) and Denies headache(s) ENT Denies dizziness, Denies headache(s), Denies nasal congestion, Denies nasal discharge and Denies sore throat Card Denies chest pain, Denies lightheadedness, Denies palpitations and Denies dyspnea Resp Denies chest congestion, Denies dyspnea and Denies wheezing GI Denies change in bowel habits Details: Currently seeing Dr. Stoner her urologist for recurrent urinary tract infection Musc Reports as per HPI, Reports abnormal gait, Denies joint swelling and Reports stiffness Skin/Breast Denies lesions and Denies rash Neuro Reports abnormal gait, Denies dizziness and Denies headache(s) Endo Denies polydipsia, Denies polyuria and Denies palpitations Scottie/Lymph Denies easy bruising Aller/Immun Denies seasonal rhinorrhea and Denies wheezing Physical exam (Primary Care) Tobacco/Smoking Status: Tobacco use Status Tobacco use date assessed 08/09/24 08/09/24 08:21 Patient Tobacco Use Status Former Tobacco user 08/09/24 08:21 Tobacco use type Cigarette 08/09/24 08:21 e-Cigarette/Vaping Use Never Used 08/09/24 08:21 Thrive Assessment: Date of Thrive Assessment Date Thrive assessed 01/18/23 08/09/24 08:21 Telehealth Telehealth Telehealth Platform: [employer] Location of provider rendering services: practice address Location of patient: address on file Patient Identification confirmed using: Name, : Yes Telehealth method: video Patient verbally consented to treatment: Yes Patient verbally consented to billing insurance company: Yes Patient informed of any privacy concerns related to visit: Yes Minutes spent on Phone/Video with Pt.: 15 Results Reviewed Results Reviewed: Name: Lorelei Driscoll Age/Sex: 68/F : 1955 Unit#: [id number] Attend Dr: Stephany Vega MD Re07/02/24 Status: DEP REF Location: [facility] Disch: SPEC : [id number] YI: 07/02/24 STATUS: COMP REQ : [id number] RECD: 07/02/24-[address]: STEPHANY FINK MD COMP: 07/02/24-1016 ENTERED: 07/02/24-[address]: Ramona Damico MD ORDERED: CBC No Diff Test Result Flag Reference WBC 9.7 4.8-10.8 X10*3/uL RBC 4.08 L 4.20-5.50 X10*6/uL HGB 11.9 L 12.0-16.0 g/dl HCT 38.6 37.0-47.0 % MCV 94.6 80.0-98.0 fL MCH 29.2 27.0-33.0 pg MCHC 30.8 L 31.0-35.0 g/dl RDW 15.3 11.0-16.0 % PLT 388 # 160-400 X10*3/uL MPV 9.8 9.4-12.3 fL NRBC Pct Auto 0.0 0.0-0.2 /100WBC NRBC Abs Auto 0.000 0.0-0.012 X10*3/uL Name: Lorelei Driscoll Age/Sex: 68/F : 1955 Unit#: [id number] Attend Dr: Ramona Damico MD Re08/01/24 Status: DEP REF Location: [facility] Disch: SPEC : [id number] YI: 08/01/24 STATUS: COMP REQ : [id number] RECD: 08/01/24-[address]: Ramona Damico MD COMP: 08/01/24 ENTERED: 08/01/[address] [facility] [address]: ORDERED: Met Prof Fast, AST, ALT, Lipid Panel, Vitamin D 25-OH Test Result Flag Reference Sodium 141 135-145 mmol/L Potassium 4.7 3.3-5.1 mmol/L CL 104 96-108 mmol/L CO2 27 22-29 mmol/L Gap 15 12-20 BUN 15 9-16 mg/dL Creat 0.94 0.5-1.4 mg/dL EGFR 59 NOTE: For -[place]izen [place] individuals, multiply the result by 1.210. Chronic Kidney Disease: Estimated GFR < 60 mL/min/1.73m2 Severe Kidney Disease: Estimated GFR < 15 mL/min/1.73m2 FBS 108 H 60-99 mg/dL A fasting glucose from 100-125 mg/dl is considered impaired (pre-diabetes). CA 9.4 8.4-10.2 mg/dL AST (GOT) 111 H 5-31 U/L ALT (GPT) 51 H 0-31 U/L Triglyceride 142 <150 mg/dL Desirable Triglyceride: less than 150 mg/dL Borderline High Triglyceride 150-199 mg/dL High Triglyceride: 200-499 mg/dL Very High Triglyceride: greater than or equal to 5OO mg/dL Cholesterol 165 <200 mg/dL Desirable Cholesterol: less than 200 mg/dL Borderline High Cholesterol: 200-239 mg/dL High Cholesterol: greater than 239 mg/dL LDL Calculated 97 <100 mg/dL Desirable LDL: less than 100 mg/dL Near Optimal/Above Optimal LDL: 110-129 mg/dL Borderline High LDL: 130-159 mg/dL High LDL: 160-189 mg/dL Very High LDL: greater than or equal to 190 mg/dL HDL 40 L >40 mg/dL Desirable HDL: greater than 40 mg/dL Note: This HDL assay may give artificially low results in patients with liver disease. Vit D 25-OH Tot 51.2 >30 ng/mL Health Based Reference Values* < 20 ng/mL Deficient 20-30 ng/mL Insufficient > 30 ng/mL Sufficient *Noah MCKNIGHT. N Engl J Med. 2007;357:266-280 Care must be taken in interpreting Vitamin D results from different laboratories and methodologies. Published data demonstrated that results from patients undergoing hemodialysis may show a negative bias when tested with various automated 25-OH vitamin D assays when compared to LC-MS/MS. When testing samples from patients whose predominant form of Vitamin D is Vitamin D2, such as patients receiving Vitamin D2 supplementation, results that are subtherapeutic should be confirmed with another method such as LC-MS/MS. Laboratory Tests 08/01/24 09:44 Estimat Average Glucose 108 Hemoglobin A1c % 5.4 Assessment and Plan Assessment & Plan (1) Dyslipidemia: Code(s): E78.5 - Hyperlipidemia, unspecified (2) Diabetes mellitus with microalbuminuria, without long-term current use of insulin: Code(s): E11.29 - Type 2 diabetes mellitus with other diabetic kidney complication; R80.9 - Proteinuria, unspecified (3) Osteoporosis: Code(s): M81.0 - Age-related osteoporosis without current pathological fracture Qualifiers: Osteoporosis type: unspecified Presence of current pathological f racture: with current pathological fracture Encounter type: subsequent encounter Fracture healing: with routine healing Qualified Code(s): M80.00XD - Age-related osteoporosis with current pathological fracture, unspecified site, subsequent encounter for fracture with routine healing Plan: Will follow-up on orders made for her to have her bone density scan at [facility], last ordered 07/19/2024 and there was also a previous order February of this year. Patient also requesting to have her mammogram done at the same day in [place] (4) COVID-19 virus infection: Code(s): U07.1 - COVID-19 Plan: Recently tested positive earlier this week, feeling better, with a lingering cough. Advised to take [id number] cough medications like Robitussin DM, prescription also sent for albuterol inhaler to use as directed. Strongly advised to get vaccinated for COVID booster, weight 3 months. And again advised to get her yearly flu shot and get vaccinated against herpes zoster. Orders: Orders Lipid Panel 12/21/24 E11.29 - Type 2 diabetes mellitus with other diabetic kidney complication, E55.9 - Vitamin D deficiency, unspecified, E78.5 - Hyperlipidemia, unspecified, M80.00XD - Age-related osteoporosis with current pathological fracture, unspecified site, subsequent encounter for fracture with routine healing, R80.9 - Proteinuria, unspecified, Z78.0 - Asymptomatic menopausal state Hemoglobin A1c 12/21/24 E11.29 - Type 2 diabetes mellitus with other diabetic kidney complication, E55.9 - Vitamin D deficiency, unspecified, E78.5 - Hyperlipidemia, unspecified, M80.00XD - Age-related osteoporosis with current pathological fracture, unspecified site, subsequent encounter for fracture with routine healing, R80.9 - Proteinuria, unspecified, Z78.0 - Asymptomatic menopausal state Microalbumin, Random (w Creat) 12/21/24 E11.29 - Type 2 diabetes mellitus with other diabetic kidney complication, E55.9 - Vitamin D deficiency, unspecified, E78.5 - Hyperlipidemia, unspecified, M80.00XD - Age-related osteoporosis with current pathological fracture, unspecified site, subsequent encounter for fracture with routine healing, R80.9 - Proteinuria, unspecified, Z78.0 - Asympto matic menopausal state Alanine Aminotransferase 12/21/24 E11.29 - Type 2 diabetes mellitus with other diabetic kidney complication, E55.9 - Vitamin D deficiency, unspecified, E78.5 - Hyperlipidemia, unspecified, M80.00XD - Age-related osteoporosis with current pathological fracture, unspecified site, subsequent encounter for fracture with routine healing, R80.9 - Proteinuria, unspecified, Z78.0 - Asymptomatic menopausal state Aspartate Amino Transferase 12/21/24 E11.29 - Type 2 diabetes mellitus with other diabetic kidney complication, E55.9 - Vitamin D deficiency, unspecified, E78.5 - Hyperlipidemia, unspecified, M80.00XD - Age-related osteoporosis with current pathological fracture, unspecified site, subsequent encounter for fracture with routine healing, R80.9 - Proteinuria, unspecified, Z78.0 - Asymptomatic menopausal state Basic Metabolic Panel Fasting 12/21/24 E11.29 - Type 2 diabetes mellitus with o ther diabetic kidney complication, E55.9 - Vitamin D deficiency, unspecified, E78.5 - Hyperlipidemia, unspecified, M80.00XD - Age-related osteoporosis with current pathological fracture, unspecified site, subsequent encounter for fracture with routine healing, R80.9 - Proteinuria, unspecified, Z78.0 - Asymptomatic menopausal state Vitamin D 25-OH Total 12/21/24 E11.29 - Type 2 diabetes mellitus with other diabetic kidney complication, E55.9 - Vitamin D deficiency, unspecified, E78.5 - Hyperlipidemia, unspecified, M80.00XD - Age-related osteoporosis with current pathological fracture, unspecified site, subsequent encounter for fracture with routine healing, R80.9 - Proteinuria, unspecified, Z78.0 - Asymptomatic menopausal state Medications: Refilled albuterol sulfate 90 mcg/actuation 2 puffs inhalation Q6H PRN 8.5 grams 2RF shortness of breath or wheezing Coding Level of Care Code Tele Est Pt Level 4 (02451) Complex EM visit Add On G2211 Diagnoses Dyslipidemia E78.5 Diabetes mellitus with microalbuminuria, without long-term current use of insulin E11.29; R80.9 Osteoporosis with current pathological fracture with routine healing, unspecified osteoporosis type, subsequent encounter M80.00XD Osteoporosis type: unspecified Presence of current pathological fracture: with current pathological fracture Encounter type: subsequent encounter Fracture healing: with routine healing COVID-19 virus infection U07.1
== END 2024-08-09 11:35 | disposition home or self-care (01) ==
LOC: HO.HMCC 08:27
PROVIDERS: PCP Internal Medicine; Visit Provider Internal Medicine
DX: E78.5 Hyperlipidemia, unspecified (principal); E11.29 Type 2 diabetes mellitus with other diabetic kidney complication; R80.9 Proteinuria, unspecified; M80.00XD Age-related osteoporosis with current pathological fracture, unspecified site, subsequent encounter for fracture with routine healing; U07.1 COVID-19

== ENCOUNTER → 2024-08-09 08:27 | Outpatient (BNVA) | payer OTHER, SELFPAY | PROVIDERS: PCP Internal Medicine; Visit Provider Internal Medicine ==

== ENCOUNTER 2024-10-22 12:20 | Outpatient (REF) | payer OTHER, SELFPAY ==
[2024-10-22 15:25] LABS: Anion Gap 14 (12-20); Blood Urea Nitrogen 18 mg/dL (9-16); Calcium 8.6 mg/dL (8.4-10.2); Carbon Dioxide 27 mmol/L (22-29); Chloride 103 mmol/L (96-108); Estimated Glomerular Filt Rate 52; Glucose Random 128 mg/dL (60-115); Potassium 4.5 mmol/L (3.3-5.1); Sodium 139 mmol/L (135-145)
== END 2024-10-22 12:21 | disposition home or self-care (01) ==
LOC: HO.HMGCLDS 12:20
PROVIDERS: PCP Internal Medicine; Visit Provider Physician Assistant
DX: N13.39 Other hydronephrosis (principal)
CPT/HCPCS: 36415; 80048

== ENCOUNTER 2025-02-14 09:52 | Outpatient (AMB) | payer OTHER, SELFPAY ==
--- NOTE | 2025-02-14 09:50 | MHC.PC.OV ---
Intake Visit Reasons: discuss bone density scan results [phone] Allergies No Known Allergies [No Known Allergies*] Allergy (Verified 02/14/25 23:16) pollen Allergy (Intermediate, Uncoded 02/14/25 23:16) nasal congestion Medication List - Last Reconciled 02/14/25 by Ramona Damico MD albuterol sulfate 90 mcg/actuation 2 puffs inhalation Q6H PRN amiodarone 400 mg PO DAILY apixaban (Eliquis) 5 mg PO Q12H atorvastatin 10 mg PO . every other day 90 days blood sugar diagnostic (FreeStyle Lite Strips) Check fasting blood sugar daily daily; cholecalciferol (vitamin D3) 50 mcg PO DAILY docusate sodium 100 mg PO BID 30 days furosemide 20 mg PO QAM gabapentin 600 mg (2 x 300 mg) PO BEDTIME metformin ER 500 mg PO DAILY omega-3 fatty acids 2,000 mg PO DAILY vibegron (Gemtesa) 75 mg PO DAILY Tobacco use date assessed: 02/14/25 Fall risk assessment: No Falls in past year Last assessed Fall Risk: 02/14/25 Dental Screening Dental Screen Date: 02/14/25 Did you have a dental visit in the last 12 months?: No Did you have a dental problem in the last 6 months where you did not have access to dental care?: No Was dental information given to patient?: No HPI discuss bone density scan results [phone] HPI Details 69-year-old lady with history of diabetes mellitus, dyslipidemia, history of bladder screening with metaplasia, history of atrial fibrillation status post cardioversion, history of cervical cancer, and lumbar disc herniation with radiculopathy as well as history of multiple rib fracture, here today via telehealth to discuss results of her bone density scan done at [facility] in August 2024, which showed presence of a T-score of-5.1 in her right total femur indicative of severe osteoporosis. She has worsening of her osteoporosis, deferred initial treatment, as at that time she was getting treatment for her bladder cancer. [facility] Medical History (Updated 02/14/25 @ 10:01 by Ramona Damico MD) Severe osteopetrosis Multiple rib fractures involving four or more ribs Bladder squamous metaplasia Vitamin D deficiency Diabetes mellitus with microalbuminuria, without long-term current use of insulin History of cardioversion History of atrial fibrillation Urinary bladder incontinence Recurrent UTI (urinary tract infection) Postmenopause Pulmonary nodule, right Osteoarthritis of knees, bilateral Paresthesia of skin History of cervical cancer Herniation of lumbar intervertebral disc with radiculopathy Seasonal allergic rhinitis Dyslipidemia Surgical History History of cholecystectomy History of lumbar laminectomy Hx of total hysterectomy Family History Father Coronary artery disease COPD (chronic obstructive pulmonary disease) Mother Diabetes mellitus Hypertension Daughter Breast cancer Mental health disorder Sister Breast cancer Social History Housing: Apartment Alcohol intake: never Patient Tobacco Use Status: Former Tobacco user Tobacco use type: Cigarette Years Smoked: 21 e-Cigarette/Vaping Use: Never Used Second Hand Smoke Exposure: No Current occupational status: retired Cognitive needs: No Hearing needs: No Vision needs: Yes Questionnaire Thrive Questionnaire Date Thrive assessed: 02/14/25 I am a: Patient What is your living situation today?: I have a steady place to live Within the past 12 months, did the food you bought not last and you didn't have the money to get more?: Never true Within the past 12 months, did you worry whether your food would run out before you got money to buy more?: Never true Do you have trouble paying for medicines?: No Do you have trouble getting transportation to medical appointments?: No Do you have trouble paying your heating and electricity bill?: No Do you have trouble taking care of your child, family member or friend?: No Do you have trouble with day-to-day activities such as bathing, preparing meals, shopping, managing finances, etc.?: No Are you currently unemployed and looking for a job?: No Are you interested in more education?: No THRIVE Score: 0 AUDIT C Alcohol Use Questionnaire (AUDIT-C) 1. How often do you have a drink containing alcohol?: Never Total Score: 0 ROB-7 AMB Questionnaire ROB-7 Date ROB - 7 assessed: 02/14/25 Feeling nervous, anxious, or on edge: 0 = Not at all Not being able to stop or control worryin = Not at all Worrying too much about different things: 0 = Not at all Trouble relaxin = Not at all Being so restless that it is hard to sit still: 0 = Not at all Becoming easily annoyed or irritable: 0 = Not at all Feeling afraid as if something awful might happen: 0 = Not at all Total ROB-7 score (0-4 normal; 5-9 mild; 10-14 moderate; 15-21 severe): 0 Source: Developed by Drs. Adalid Butler, Sosa Hayes, Pio Alex and colleagues, with an educational carrie from [employer]. ROB-7 Assessment Billing ROB-7 Assessment Tool: ROB-7 Assessment 07688 Review of Systems Const Denies fever(s) and Denies headache(s) ENT Denies dizziness and Denies headache(s) Card Denies chest pain and Denies dyspnea Resp Denies chest congestion and Denies dyspnea GI Denies change in bowel habits Details: Currently seeing Dr. Stoner her urologist for recurrent urinary tract infection Musc Reports abnormal gait, Denies joint swelling and Reports stiffness Skin/Breast Denies lesions and Denies rash Neuro Reports abnormal gait, Denies dizziness and Denies headache(s) Endo Denies polydipsia and Denies polyuria Physical exam (Primary Care) Tobacco/Smoking Status: Tobacco use Status Tobacco use date assessed 02/14/25 02/14/25 09:51 Patient Tobacco Use Status Former Tobacco user 02/14/25 09:51 Tobacco use type Cigarette 02/14/25 09:51 e-Cigarette/Vaping Use Never Used 02/14/25 09:51 Thrive Assessment: Date of Thrive Assessment Date Thrive assessed 02/14/25 02/14/25 09:52 Telehealth Telehealth Telehealth Platform: [facility] Location of provider rendering services: practice address Location of patient: address on file Patient Identification confirmed using: Name, : Yes Telehealth method: voice only Patient verbally consented to treatment: Yes Patient verbally consented to billing insurance company: Yes Patient informed of any privacy concerns related to visit: Yes Minutes spent on Phone/Video with Pt.: 15 Coding Level of Care Code Tele Est Pt Level 3 (95578) Diagnoses Osteoporosis with current pathological fracture with routine healing, unspecified osteoporosis type, subsequent encounter M80.00XD Encounter type: subsequent encounter Fracture healing: with routine healing Osteoporosis type: unspecified Presence of current pathological fracture: with current pathological fracture Multiple rib fractures involving four or more ribs S22.49XA Additional Codes ROB-7 Assessment Billing - ROB-7 Assessment Tool: ROB-7 Assessment 60936 ([id number]) Assessment & Plan Assessment & Plan (1) Osteoporosis: Code(s): M81.0 - Age-related osteoporosis without current pathological fracture Category: Medical Qualifiers: Encounter type: subsequent encounter Fracture healing: with routine healing Osteoporosis type: unspecified Presence of current pathological fracture: with current pathological fracture Qualified Code(s): M80.00XD - Age-related osteoporosis with current pathological fracture, unspecified site, subsequent encounter for fracture with routine healing (2) Multiple rib fractures involving four or more ribs: Code(s): S22.49XA - Multiple fractures of ribs, unspecified side, initial encounter for closed fracture Category: Medical Plan Recent bone density scan showed severe osteoporosis in her right total femur with a T-score of-5.1. Previous bone density scan showed osteoporosis as well on her left femoral neck whether that time triggers was deferred as she was being treated for bladder cancer. Will refer to Endocrine Clinic further evaluation and management. Continue taking vitamin-D 3 supplements at least 50 mcg daily and calcium supplements. Orders: Referrals Endocrinology Referral M80.00XD - Age-related osteoporosis with current pathological fracture, unspecified site, subsequent encounter for fracture with routine healing, Q78.2 - Osteopetrosis, S22.49XA - Multiple fractures of ribs, unspecified side, initial encounter for closed fracture
== END 2025-02-14 10:34 | disposition home or self-care (01) ==
LOC: HO.HMCC 09:52
PROVIDERS: PCP Internal Medicine; Visit Provider Internal Medicine
DX: M80.00XD Age-related osteoporosis with current pathological fracture, unspecified site, subsequent encounter for fracture with routine healing (principal); Z87.81 Personal history of (healed) traumatic fracture

== ENCOUNTER → 2025-02-14 09:52 | Outpatient (BNVA) | payer OTHER, SELFPAY | PROVIDERS: PCP Internal Medicine; Visit Provider Internal Medicine | DX: M80.00XD Age-related osteoporosis with current pathological fracture, unspecified site, subsequent encounter for fracture with routine healing (principal); S22.49XD Multiple fractures of ribs, unspecified side, subsequent encounter for fracture with routine healing; Q78.2 Osteopetrosis; E11.9 Type 2 diabetes mellitus without complications; E78.5 Hyperlipidemia, unspecified; X58.XXXD Exposure to other specified factors, subsequent encounter; Z85.41 Personal history of malignant neoplasm of cervix uteri | CPT/HCPCS: 96127 ==

== ENCOUNTER 2025-03-03 08:58 | Outpatient (REF) | payer OTHER, SELFPAY ==
--- OUTSIDE RECORDS SUMMARY | 2025-03-03 09:50 | XMS_ITS | Encounter Summary ---
Author Organization [facility] Address [address] [place] [address] Care Team Providers Care Senior Administrator Support Name Role Phone Ramona Damico MD Primary Care Provider Encounter Details Date Type Department Care Team (Late st Contact Info) Description 10/25/2024 Lab Requisition [facility] - Main Lab [address] [facility] [place] [phone] Kevin June PA [address] [place] [address] Pyuria Social History Tobacco Use Types Packs/Day Years Used Date Smoking Tobacco: Former Smokeless Tobacco: Never Alcohol Use Standard Drinks/Week Comments Not Currently 0 (1 standard drink = 0.6 oz pur e alcohol) Comments Unknown Sex and Gender Information Value Date Recorded Sex Assigned at Female 10/08/2024 2:04 PM EST Legal Sex Female 4:02 AM EST Gender Identity Female 10/08/2024 2:04 PM EST Sexual Orientation Straight 10/08/2024 2: 04 PM EST documented as of this encounter Plan of Treatment Upcoming Encounters Date Type Department Care Team (Late st Contact Info) Description 09/02/2025 1:30 PM EDT Office Visit [facility] Cardiology [address] [place] [phone] Audie Bonilla MD [address] [place] [address] [address] [place] [address] documented as of this encounter Procedures Procedure Name Priority Date/Time Associated Diagnosis Comments BACTERIAL IDENTIFICATION AND SUSCEPTIBILITY, AEROBIC Routine 10/24/2024 12:00 AM EST Pyuria documented in this encounter Results * (ABNORMAL) Bacterial identification and susceptibility, aerobic (10/24/2024 12:00 AM EST) Culture, Bacterial ID and Sensitivity Klebsiella pneumoniae ssp pneumoniae(A) DEANNA 10/26/2024 9:39 AM EST [facility] Comment: This is an edited result. Previous organism was Gram negative bacilli on 10/25/2024 at 1130 EST. Other Urinary bladder structure / Unknown 10/24/2024 10/25/2024 10:11 AM EST Narrative Organism Antibiotic Method Susceptibility Klebsiella pneumoniae ssp pneumoniae Amoxicillin/Clavulanate DEANNA 4 ug/ml: Susceptible Klebsiella pneumoniae ssp pneumoniae Ampicillin/Sulbactam DEANNA 8 ug/ml: Susceptible Klebsiella pneumoniae ssp pneumoniae Piperacillin/Tazobactam DEANNA <=4 ug/ml: Susceptible Klebsiella pneumoniae ssp pneumoniae Cefazolin (Urine) DEANNA 2 ug/ml: Susceptible Klebsiella pneumoniae ssp pneumoniae Cefoxitin DEANNA <=4 ug/ml: Susceptible Klebsiella pneumoniae ssp pneumoniae Ceftazidime DEANNA <=0.5 ug/ml: Susceptible Klebsiella pneumoniae ssp pneumoniae Ceftriaxone DEANNA <=0.25 ug/ml: Susceptible Klebsiella pneumoniae ssp pneumoniae Cefepime DEANNA <=0.12 ug/ml: Susceptible Klebsiella pneumoniae ssp pneumoniae Meropenem DEANNA <=0.25 ug/ml: Susceptible Klebsiella pneumoniae ssp pneumoniae Amikacin DEANNA <=1 ug/ml: Susceptible Klebsiella pneumoniae ssp pneumoniae Gentamicin DEANNA <=1 ug/ml: Susceptible Klebsiella pneumoniae ssp pneumoniae Ciprofloxacin DEANNA 0.12 ug/ml: Susceptible Klebsiella pneumoniae ssp pneumoniae Levofloxacin DEANNA <=0.12 ug/ml: Susceptible Klebsiella pneumoniae ssp pneumoniae Nitrofurantoin DEANNA 64 ug/ml: Intermediate Klebsiella pneumoniae ssp pneumoniae Trimethoprim/Sulfamethoxazo le DEANNA >=320 ug/ml: Resistant Kevin RENTERIA LAB MICROBIOLOGY - GENERAL ORDER CAPO Final Result [facility] [place] ([facility]) HOSPITAL LAB [address] [place] [address], documented in this encounter Visit Diagnoses Diagnosis Pyuria Other nonspecific finding on examination of urine documented in this encounter Care Teams Senior Administrator Support Relationship Specialty Start Date End Date Ramona Damico MD [address] [place] [address] PCP - General 11/20/12 documented as of this encounter
--- OUTSIDE RECORDS SUMMARY | 2025-03-03 09:50 | XMS_ITS | Encounter Summary ---
Author Organization [facility] Address [address] [place] [address] Care Team Providers Care Boilermaker Pipe Fitter Name Role Phone Ramona Damico MD Primary Care Provider Encounter Details Date Type Department Care Team (Late st Contact Info) Description 12/25/2024 Lab Requisition [facility] - Main Lab [address] [facility] [place] [phone] Lori Weston NP [address] [facility] [address] [place] [address] Gross hematuria Social History Tobacco Use Types Packs/Day Years [...] Description 09/02/2025 1:30 PM EDT Office Visit [facility] [address] [place] [address] Audie Bonilla MD [address] [place] [address] [address] [place] [address] documented as of this encounter Procedures Procedure Name Priority Date/Time Associated Diagnosis Comments CULTURE URINE Routine 12/25/2024 12:00 AM EST Gross hematuria documented in this encounter Results * (ABNORMAL) Culture urine (12/25/2024 12:00 AM EST) Culture, Urine >100,000 CFU/mL Klebsiella pneumoniae ssp pneumoniae(A) DEANNA 12/28/2024 9:[address] [facility] Comment: The organism value for this result has been updated. These results have been appended to the previously preliminary verified report. This is an edited result. Previous organism was Gram negative bacilli on 12/27/2024 at 1325 EST. Culture, Urine 10,000-49,000 CFU/mL Escherichia coli(A) DEANNA 12/28/2024 9:[address] [facility] Comment: The organism value for this result has been updated. These results have been appended to the previously preliminary verified report. This is an edited result. Previous organism was Gram negative bacilli on 12/27/2024 at 1325 EST. Culture, Urine >100,000 CFU/mL Aerococcus sanguinicola(A ) DEANNA 12/28/2024 9:[address] [facility] Comment: Susceptibility testing not routinely performed. ??If further therapeutic information is required, please consult an infectious disease specialist. The organism value for this result has been updated. These results have been appended to the previously preliminary verified report. Edited result: Previously reported as Gram Positive Cocci on 12/27/2024 at 1325 EST. Urine Urine specimen from urinary conduit / Unknown 12/25/2024 12/25/2024 12:08 PM EST Narrative Organism Antibiotic Method Susceptibility Klebsiella [...] pneumoniae Trimethoprim/Sulfamethoxazo le DEANNA >=320 ug/ml: Resistant Escherichia coli Amoxicillin/Clavulanate DEANNA <=2 ug/ml: Susceptible Escherichia coli Ampicillin/Sulbactam DEANNA <=2 ug/ml: Susceptible Escherichia coli Piperacillin/Tazobactam DEANNA <=4 ug/ml: Susceptible Escherichia coli Cefazolin (Urine) DEANNA <=1 ug/ml: Susceptible Escherichia coli Cefoxitin DEANNA <=4 ug/ml: Susceptible Escherichia coli Ceftazidime DEANNA <=0.5 ug/ml: Susceptible Escherichia coli Ceftriaxone DEANNA <=0.25 ug/ml: Susceptible Escherichia coli Cefepime DEANNA <=0.12 ug/ml: Susceptible Escherichia coli Meropenem DEANNA <=0.25 ug/ml: Susceptible Escherichia coli Amikacin DEANNA <=1 ug/ml: Susceptible Escherichia coli Gentamicin DEANNA <=1 ug/ml: Susceptible Escherichia coli Ciprofloxacin DEANNA <=0.06 ug/ml: Susceptible Escherichia coli Levofloxacin DEANNA <=0.12 ug/ml: Susceptible Escherichia coli Nitrofurantoin DEANNA <=16 ug/ml: Susceptible Escherichia coli Trimethoprim/Sulfame thoxazo le DEANNA <=20 ug/ml: Susceptible Lori Weston NP LAB MICROBIOLOGY - GENERA L ORDERABLES Final Result [facility] ([facility]) H[facility]PITAL LAB [address] [place] [address], [place] [phone] documented in this encounter Visit Diagnoses Diagnosis Gross hematuria documented in this encounter Care Teams Boilermaker Pipe Fitter Relationship Specialty Start Date End Date Ramona Damico MD [address] [place] [address] PCP - General 11/20/12 documented as of this encounter
--- OUTSIDE RECORDS SUMMARY | 2025-03-03 09:51 | XMS_ITS | Clinical Summary ---
Author Organization [facility] Address [address] [place] [address] Phone Care Team Providers Care Paste Mixing Supervisor Name Role Phone Ramona Singer MD Primary Care Provider Allergies No known active allergies Medications apixaban (Eliquis) 5 mg tablet TAKE 1 TABLET BY MOUTH TWICE DAILY 180 tablet 1 12/23/2024 Active furosemide (LASIX) 20 mg tablet Take 1 tablet (20 mg total) by mouth 1 (one) time each day. 90 tablet 1 12/30/2024 Active amiodarone (PACERONE) 200 mg tablet Take 1 tablet (200 mg total) by mouth 2 (two) times a day. 180 tablet 1 01/22/2025 Active omega-3 (Fish OiL) 300-1,000 mg capsuleIndicatio ns:Atrial fibrillation, unspecified type (CMS/HCC V24, CMS/HCC V28) Take 1 capsule (1,000 mg total) by mouth 1 (one) time each day. Active atorvastatin (LIPITOR) 20 mg tabletIndication s:Atrial fibrillation, unspecified type (CMS/HCC V24, CMS/HCC V28) Take 1 tablet (20 mg total) by mouth every other day. Active metFORMIN (GLUMETZA) 500 mg 24 hr tabletIndication s:Atrial fibrillation, unspecified type (CMS/HCC V24, CMS/HCC V28) Take 1 tablet (500 mg total) by mouth 1 (one) time each day with dinner. Do not crush, chew, or split. Active calcium carbonate-vitami n D 500 mg-5 mcg (200 unit) per tabletIndication s:Atrial fibrillation, unspecified type ([facility] V24, [facility] V28) Take 1 tablet by mouth 1 (one) time each day. Active Active Problems Problem Noted Date Diagnosed Date HLD (hyperlipidemia) 04/14/2023 Assessment & Plan (02/17/2025 4:51 PM EDT): Lipids are managed by her primary care provider. She continues on atorvastatin 10 mg once a day. A-fib ([facility] V24, [facility] V28) 04/14/2023 Assessment & Plan (02/17/2025 4:51 PM EDT): Patient has history of paroxysmal atrial fibrillation which has been well- controlled on amiodarone 200 mg twice a day. She denies any breakthrough but did have breakthrough of atrial fibrillation on lower doses. She was seen by electrophysiology and did not feel any intervention was necessary at that time. She continues on Eliquis for anticoagulation given her elevated [id number] score. We will continue to monitor her carefully and update labs as well as pulmonary function testing. Amiodarone is intended for use only in patients with indicated life-threatening arrhythmias because its use is accompanied by substantial toxicity. We discussed the risks including risk for pulmonary toxicity, hepatotoxicity, risk for worsening arrhythmias and risk for thyroid impairment. We will monitor the patient for these conditions throughout treatment. Patient was also warned about the risk for photosensitivity and solar dermatitis. Patient was advised to wear sunscreen and wear protective clothing including a hat when in direct sunlight. Heart failure (CMS/[facility] V24, [facility] V28) 023 Assessment & Plan (02/17/2025 4:51 PM EDT): Patient has history of HFrEF with LVEF as low as 20 to 25% in the past. Her LVEF improved on medical therapy to most recently an LVEF of 50 to 55%. 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 She feels well and denies any clinical symptoms of heart failure and she appears euvolemic on physical examination. She will continue on guideline directed medical therapy she continues on furosemide 20 mg twice a day. Patient advised to seek emergency medical attention by calling 911 if they were to develop severe dyspnea, chest pain that did not resolve with rest or nitroglycerin, or if they were to faint. I've asked the patient to call if they develop worsening symptoms of heart failure such as increased shortness of breath, new or worsening cough, increased swelling in the legs or ankles, or weight gain of more than 2 pounds in one day or 4 pounds in one week. Pericardial effusion 04/14/2023 Assessment & Plan (02/17/2025 4:51 PM EDT): Patient with a previous history of pericardial effusion no longer identified on recent echo. Encounters Date Type Department Care Team Description 02/17/2025 2:10 PM EDT Office Visit [facility] [address] [place] [address] Pretty Ramos NP Atrial fibrillation, unspecified type (CMS/HCC V24, CMS/HCC V28) (Primary Dx); Heart failure, unspecified HF chronicity, unspecified heart failure type (CMS/HCC V24, CMS/HCC V28); Pericardial effusion; Mixed hyperlipidemia 12/25/2024 Lab Requisition [facility] Lab [address] [facility] [place] [address] Lori Weston NP Gross hematuria from Last 3 Months Family History Medical History Relation Name Comments Other: atrial fibrillation Brother 1 Other: Other Brother 2 Heart failure Mother Relation Name Status Comments Brother 1 Brother 2 Alive Mother Social History Tobacco Use Types Packs/Day Years [...] Orientation Straight 10/08/2024 2: 04 PM EST Obstetrics History Last Filed Vital Signs Vital Sign Reading Time Taken Comments Blood Pressure 120/68 02/17/2025 1:52 PM EDT Pulse 76 02/17/2025 1:52 PM EDT Temperature - - Respiratory Rate - - Oxygen Saturation 95% 02/17/2025 1:52 PM EDT Inhaled Oxygen Concentration - - Weight 108 kg (237 lb) 02/17/2025 1:52 PM EDT Height 167.6 cm (5' 6 ) 02/17/2025 1:52 PM EDT Body Mass Index 38.25 02/17/2025 1:52 PM EDT Plan of Treatment Upcoming Encounters Date Type Department Care Team (Late st Contact Info) Description 09/02/2025 1:30 PM EDT Office Visit [facility] [address] [place] [id number] Audie Bonilla MD [address] [place] [address] [address] [place], [place] [id number] Health Maintenance Due Date Last Done Comments Breast Cancer Screening 1955 DTaP,Tdap,and Td Vaccines (1 - Tdap) 1974 Zoster Vaccines (1 of 2) 2005 RSV Immunization Adult Patients (1 - Risk 60-74 years 1-dose series) 2015 Colorectal Cancer Screening: Colonoscopy 10/23/2022 Depression Screening 10/23/2022 Falls Risk Assessment 10/23/2022 Hepatitis C Screening 10/23/2022 Social Influencers of Health Screening 10/23/2022 COVID-19 Vaccine ( - season) 2024 02/20/2021, 01/30/2021 Influenza Vaccine (Season Ended) 2025 10/10/2019, 09/12/2019, 09/13/2018, Additional history exists Hypertension/CHF/CAD Annual BMP Blood Test 02/17/2026 02/17/2025 Cholesterol Screening (Lipid Panel) 02/17/2030 02/17/2025 Osteoporosis Screening (Bone Density Screening) 09/11/2034 09/11/2024 Pneumococcal Vaccine: 50+ Years Completed 09/22/2022, 01/08/2018 HIB Vaccines Aged Out No longer eligi ble based on patient's age to complete this topic HPV Vaccines Aged Out No longer eligi ble based on patient's age to complete this topic Hepatitis A Vaccines Aged Out No long er eligible based on patient's age to complete this topic Hepatitis B Vaccines Aged Out No long er eligible based on patient's age to complete this topic IPV Vaccines Aged Out No longer eligi ble based on patient's age to complete this topic MMR Vaccines Aged Out No longer eligi ble based on patient's age to complete this topic Meningococcal ACWY Vaccine Aged Out N o longer eligible based on patient's age to complete this topic Meningococcal B Vaccine Aged Out No l onger eligible based on patient's age to complete this topic RSV Immunization Patients Under 20 months Aged Out No longer eligible based on patient's age to complete this topic Varicella Vaccines Aged Out No longer eligible based on patient's age to complete this topic Procedures Procedure Name Priority Date/Time Associated Diagnosis Comments ECG 12-LEAD Routine 02/17/2025 4:51 PM EDT Atrial fibrillation, unspecified type (CMS/HCC V24, CMS/HCC V28) ..THYROXINE FREE Routine 02/17/2025 2:32 PM EDT LIPID PANEL Routine 02/17/2025 2:32 PM EDT Atrial fibrillation, unspecified type (CMS/HCC V24, CMS/HCC V28) THYROID STIMULATING HORMONE WITH REFLEX FREE T4 Routine 02/17/2025 2:32 PM EDT Atrial fibrillation, unspecified type (CMS/HCC V24, CMS/HCC V28) COMPREHENSIVE METABOLIC PANEL Routine 02/17/2025 2:32 PM EDT Atrial fibrillation, unspecified type (CMS/HCC V24, CMS/HCC V28) CULTURE URINE Routine 12/25/2024 12:00 AM EST Gross hematuria GURINDER DEXA AXIAL SKELETON Routine 09/11/2024 10:12 AM EDT Age-related osteoporosis without current pathological fracture from Last 3 Months or Most Recently Relevant to Health Maintenance Results * ECG 12 lead (02/17/2025 4:51 PM EDT) Ventricular Rate ECG 77 BPM GEMUSE Atrial Rate 77 BPM GEMUSE P-R Interval 162 ms GEMUSE QRS Duration 88 ms GEMUSE Q-T Interval 440 ms GEMUSE QTc 497 ms GEMUSE P Wave [place] 67 degrees GEMUSE R [place] 34 degrees GEMUSE T [place] 44 degrees GEMUSE ECG Interpretation Normal sinus rhythm Nonspecific ST abnormality Prolonged QT Abnormal ECG When compared with ECG of 27-JUN-2024 22:53, No significant change was found Confirmed by Serenity BONILLA JAMES ([id number]) on 02/19/2025 12:33:06 PM GEMUSE 02/17/2025 2:08 PM EDT 02/19/2025 12:33 PM EDT Pretty Ramos CLERICAL ADJUSTER ECG ORDERABLES Edited Resul t - Final Performing Organization Address City/[facility]/ZIP Co de Phone Number GEMUSE * Thyroxine free (02/17/2025 2:32 PM EDT) T4 (Thyroxine) Free (Direct) 1.03 0.82 - 1.77 ng/dL [facility] 1 02/17/2025 2:32 PM EDT 02/17/2025 Narrative [facility] 1 - 02/18/2025 6:06 AM EDT Performed at: ??01 - [facility] [address] ??[id number] Weight Yardage Checker: Emili Edward MD, Phone: ??[phone] Pretty Ramos NP LAB BLOOD ORDERABLES Final R esult [facility] 1 * (ABNORMAL) Thyroid stimulating hormone with reflex free T4 (02/17/2025 2:32 PM EDT) Thyroid Stimulating Hormone (TSH) 8.930(H) 0.450 - 4.500 uIU/mL [facility] 1 Blood Venous blood specimen / Unknown 02/17/2025 2:32 PM EDT 02/17/2025 Narrative [facility] 1 - 02/18/2025 6:06 AM EDT Performed at: ??01 - [facility] [address] ??[id number] Weight Yardage Checker: Emili Edward MD, Phone: ??[phone] Prettyse Ramos CLERICAL ADJUSTER LAB BLOOD ORDERABLES Final R esult [facility] 1 * (ABNORMAL) Lipid panel (02/17/2025 2:32 PM EDT) Cholesterol Total 136 100 - 199 mg/dL [facility] 1 Triglycerides 135 0 - 149 mg/dL [facility] 1 HDL Cholesterol 34(L) >39 mg/dL [facility] 1 VLDL Cholesterol Calculated 24 5 - 40 mg/dL [facility] 1 LDL Chol Calc (NIH) 78 0 - 99 mg/dL [facility] 1 Blood Venous blood specimen / Unknown 02/17/2025 2:32 PM EDT 02/17/2025 Narrative [facility] 1 - 02/18/2025 4:06 AM EDT Performed at: ?? - [facility] [address] ??[id number] Weight Yardage Checker: Emili Edward MD, Phone: ??[phone] us Pretty Ramos CLERICAL ADJUSTER LAB BLOOD ORDERABLES Final R esult [facility] 1 * (ABNORMAL) Comprehensive metabolic panel (02/17/2025 2:32 PM EDT) Glucose 110(H) 70 - 99 mg/dL [facility] 1 Blood Urea Nitrogen (BUN) 13 8 - 27 mg/dL [facility] 1 Creatinine 0.90 0.57 - 1.00 mg/dL [facility] 1 eGFR 69 >59 mL/min/1. 73 [facility] 1 BUN/Creatinine Ratio 14 12 - 28 [facility] 1 Sodium 142 134 - 144 mmol/L [facility] 1 Potassium 4.3 3.5 - 5.2 mmol/L [facility] 1 Chloride 102 96 - 106 mmol/L [facility] 1 Carbon Dioxide 23 20 - 29 mmol/L [facility] 1 Calcium 8.7 8.7 - 10.3 mg/dL [facility] 1 Protein Total 7.6 6.0 - 8.5 g/dL [facility] 1 Albumin 3.6(L) 3.9 - 4.9 g/dL [facility] 1 Globulin Total 4.0 1.5 - 4.5 g/dL [facility] 1 Bilirubin Total 0.3 0.0 - 1.2 mg/dL [facility] 1 Alkaline Phosphatase 132(H) 44 - 121 IU/L [facility] 1 Aspartate aminotransferase??(A ST) 131(H) 0 - 40 IU/L [facility] 1 Alanine Aminotransferase (ALT) 38(H) 0 - 32 IU/L [facility] 1 Blood Venous blood specimen / Unknown 02/17/2025 2:32 PM EDT 02/17/2025 Narrative [facility] 1 - 02/18/2025 4:06 AM EDT Performed at: ??01 - [facility] [address] ??[id number] Weight Yardage Checker: Emili Edward MD, Phone: ??[phone] us Pretty Ramos CLERICAL ADJUSTER LAB BLOOD ORDERABLES Final R esult [facility] 1 * (ABNORMAL) Culture urine (12/25/2024 12:00 AM EST) [facility] Culture, Urine >100,000 CFU/mL Klebsiella pneumoniae ssp pneumoniae(A) DEANNA 12/28/2024 9:37 AM EST [facility] Comment: The organism value for this result has been updated. These results have been appended to the previously preliminary verified report. This is an edited result. Previous organism was Gram negative bacilli on 12/27/2024 at 1325 EST. Culture, Urine 10,000-49,000 CFU/mL Escherichia coli(A) DEANNA 12/28/2024 9:37 AM EST [facility] Comment: The organism value for this result has been updated. These results have been appended to the previously preliminary verified report. This is an edited result. Previous organism was Gram negative bacilli on 12/27/2024 at 1325 EST. Culture, Urine >100,000 CFU/mL Aerococcus sanguinicola(A ) DEANNA 12/28/2024 9:37 AM EST [facility] Comment: Susceptibility testing not routinely [...] Trimethoprim/Sulfame thoxazo le DEANNA <=20 ug/ml: Susceptible us Lori Weston CLERICAL ADJUSTER LAB MICROBIOLOGY - GENERA L ORDERABLES Final Result [facility] [address] [place] [address], * GURINDER DEXA AXIAL SKELETON (09/11/2024 10:12 AM EDT) Anatomical Region Laterality Modality Mammography 09/05/2024 1:27 PM EDT Narrative 09/11/2024 10:12 AM EDT [facility] Diagnostic Imaging Department [address] [place] [address] Patient: ??DANIELE MATAMOROS ?/Age/Sex: 1955 - - F Unit#: ??[id number] ? Location/Status: ??SPDIMAM/REG CLI ? Mnemonic/Ordering Site: ??MAMDEXAAX/SPMAM Ordering Physician: ??RAMONA SINGER MD [facility] Dexa Axial Skeleton - 09/05/24 - [id number] Report Status:Signed History: Low estrogen state due to menopause. Personal history of fracture. Comparison: No comparison imaging at this institution. Findings: Bone densitometry is performed utilizing dual energy x-ray absorptiometry (DXA) in the [employer] unit. The lumbar spine and proximal femora are evaluated in the AP projection. The FRAX questionaire was completed. The results indicate osteoporosis, with a right total femur T-score of -5.1. The Z score is -4.5, indicating very low bone mineral density for age. Causes of secondary bone loss should be investigated. ??The detailed DEXA report will be mailed to the referring physician's office. DualFemur FRAX: 10-year Probability of Fracture: Major Osteoporotic 48.2 percent ??Hip 28.3 percent. IMPRESSION: Osteoporosis. [id number] Dictating Physician: ??TEREZA EVANGELISTA MD Electronically Signed by: ??TEREZA EVANGELISTA MD Dic Date/Time: ??09/11/24 1011 Sign date/Time: ??09/11/24 1012 Procedure Note Tereza Evangelista MD - 09/17/2024 [facility] Diagnostic Imaging Department [address] [place] [address] Patient: DANIELE MATAMOROS/Age/Sex: 1955 - 68 - F Unit#: [id number] Location/Status: SPDIMAM/REG CLI Mnemonic/Ordering Site: MAMDEXAAX/SPMAM Ordering Physician: RAMONA SINGER MD [facility] Dexa Axial Skeleton - 09/05/24 - [id number] Report Status:Signed History: Low estrogen state due to menopause. Personal history offracture. Comparison: No comparison imaging at this institution. Findings: Bone densitometry is performed utilizing dual energy x-ray absorptiometry(DXA) in the PA Semi unit. The lumbar spine and proximal femora areevaluated in the AP projection. The FRAX questionaire was completed. The results indicate osteoporosis, with a right total femur T-score of-5.1. The Z score is -4.5, indicating very low bone mineral density for age.Causes of secondary bone loss should be investigated. The detailed DEXA report willbe mailed to the referring physician's office. DualFemur FRAX: 10-year Probability of Fracture: Major Osteoporotic 48.2 percent Hip 28.3 percent. IMPRESSION: Osteoporosis. [id number] Dictating Physician: TEREZA EVANGELISTA MD Electronically Signed by: TEREZA EVANGELISTA MD Dic Date/Time: 09/11/24 1011 Sign date/Time: 09/11/24 1012 us Ramona Singer MD IMG BI PROCEDURES Final Res ult from Last 3 Months or Most Recently Relevant to Health Maintenance Insurance [facility] Member Subscriber Plan / Payer (Ef fective 2024-Present) Name:Daniele Matamoros Relation to Subscriber:Self Name:Daniele Matamoros Payer ID:[id number] Group ID:Not on file Type:Not on file Address: [address] [id number] Care Teams Paste Mixing Supervisor Relationship Specialty Start Date End Date Ramona Singer MD [address] [facility] [place] [address] PCP - General 11/20/12
[2025-03-03 11:14] LABS: Estimated Average Glucose 114 mg/dL; Hemoglobin A1C 124.4588 umol/L; Hemoglobin A1c % 5.6 % (<6.0)
[2025-03-03 11:27] LABS: Alanine Aminotransferase 27 U/L (0-31); Anion Gap 14 (12-20); Aspartate Amino Transferase 98 U/L (5-31); Blood Urea Nitrogen 10 mg/dL (9-16); Calcium 8.7 mg/dL (8.4-10.2); Carbon Dioxide 29 mmol/L (22-29); Chloride 104 mmol/L (96-108); Cholesterol 134 mg/dL (<200); Estimated Glomerular Filt Rate > 60; Glucose Fasting 127 mg/dL (60-99); HDL Cholesterol 36 mg/dL (>40); LDL Cholesterol Calculated 73 mg/dL (<100); Potassium 4.5 mmol/L (3.3-5.1); Sodium 142 mmol/L (135-145); Triglycerides 127 mg/dL (<150)
[2025-03-03 11:46] LABS: Vitamin D 25-OH Total 25.2 ng/mL (>30)
== END 2025-03-03 08:59 | disposition home or self-care (01) ==
LOC: HO.HMGCLDS 08:58
PROVIDERS: PCP Internal Medicine; Referring Provider Urology; Visit Provider Internal Medicine
DX: M80.00XD Age-related osteoporosis with current pathological fracture, unspecified site, subsequent encounter for fracture with routine healing (principal); E55.9 Vitamin D deficiency, unspecified; E11.29 Type 2 diabetes mellitus with other diabetic kidney complication; R80.9 Proteinuria, unspecified; Z78.0 Asymptomatic menopausal state; E78.5 Hyperlipidemia, unspecified; N13.39 Other hydronephrosis
CPT/HCPCS: 36415; 80048; 80061; 82306; 83036; 84450; 84460

== ENCOUNTER 2025-03-05 11:23 | Outpatient (AMB) | payer OTHER, SELFPAY ==
--- NOTE | 2025-03-05 11:52 | A.OFFPC_ITS ---
Vital Signs 03/05/25 11:58 Height 5 ft 6 in Weight 229 lb BMI 37.0 BP 130/76 Blood Pressure Location Rt brachial Position Sitting Respiration 15 Pulse 73 Pulse Source Pulse Oximeter Temp 98.1 F Temp Source Oral Pulse Oximetry (%) 95 Oxygen Delivery Method Room Air Intake Visit Reasons: 5mo. f/u labs Intake Note: Pt is here today for her 5mo. f/u labs Allergies No Known Allergies [No Known Allergies*] Allergy (Verified 03/05/25 12:11) pollen Allergy (Intermediate, Uncoded 03/05/25 12:11) nasal congestion Medication List - Last Reconciled 03/05/25 by Ramona Damico MD albuterol sulfate 90 mcg/actuation 2 puffs inhalation Q6H PRN amiodarone 400 mg PO DAILY apixaban (Eliquis) 5 mg PO Q12H atorvastatin 10 mg PO . every other day 90 days blood sugar diagnostic (FreeStyle Lite Strips) Check fasting blood sugar daily daily; cholecalciferol (vitamin D3) 50 mcg PO DAILY docusate sodium 100 mg PO BID 30 days furosemide 20 mg PO QAM gabapentin 600 mg (2 x 300 mg) PO BEDTIME metformin ER 500 mg PO DAILY omega-3 fatty acids 2,000 mg PO DAILY vibegron (Gemtesa) 75 mg PO DAILY Tobacco use date assessed: 03/05/25 Fall risk assessment: No Falls in past year Last assessed Fall Risk: 03/05/25 Dental Screening Dental Screen Date: 03/05/25 Did you have a dental visit in the last 12 months?: No Did you have a dental problem in the last 6 months where you did not have access to dental care?: No Was dental information given to patient?: No HPI 5mo. f/u labs HPI Details 69 year-old lady with history of diabete s mellitus, dyslipidemia, history of bladder squamous metaplasia, history of atrial fibrillation s/p cardioversion, history of cervical cancer, lumbar disc herniation with radiculopathy, and Osteoporosis, here today for her follow-up. She has been compliant with taking her medications, has been watching what she is eating, avoiding a lot of processed foods and tries to stay active. She has her grandson who now lives with her and helps her out, as she is very limited in her mobility, and in her ADLs. She is requesting a prescription for bathing donut, transport wheelchair and a sliding shower chair, to help with her mobility and help her get in and out of the bathtub. She had recent fasting labs done which shows her diabetes mellitus, renal function, lipids are all well controlled. Latest hemoglobin A1c is at 5.6%, her vitamin-D level however is deficient at 26 PFSH Medical History (Updated 03/11/25 @ 01:38 by Ramona Damico MD) Osteoporosis Difficulty in walking involving joint of multiple sites Anticoagulated on Eliquis Multiple rib fractures involving four or more ribs Bladder squamous metaplasia Vitamin D deficiency Diabetes mellitus with microalbuminuria, without long-term current use of insulin History of cardioversion History of atrial fibrillation Urinary bladder incontinence Recurrent UTI (urinary tract infection) Postmenopause Pulmonary nodule, right Osteoarthritis of knees, bilateral Paresthesia of skin History of cervical cancer Herniation of lumbar intervertebral disc with radiculopathy Seasonal allergic rhinitis Dyslipidemia Surgical History History of cholecystectomy History of lumbar laminectomy Hx of total hysterectomy Family History Father Coronary artery disease COPD (chronic obstructive pulmonary disease) Mother Diabetes mellitus Hypertension Daughter Breast cancer Mental health disorder Sister Breast cancer Social History Housing: Apartment Alcohol intake: never Patient Tobacco Use Status: Former Tobacco user Tobacco use type: Cigarette Years Smoked: 21 e-Cigarette/Vaping Use: Never Used Second Hand Smoke Exposure: No Current occupational status: retired Cognitive needs: No Hearing needs: No Vision needs: Yes Questionnaire Thrive Questionnaire Date Thrive assessed: 02/14/25 ROB-7 AMB Questionnaire ROB-7 Date ROB - 7 assessed: 02/14/25 Source: Developed by Drs. Adalid Butler, Sosa Hayes, Pio Alex and colleagues, with an educational carrie from [email or web address]. Review of Systems Const Denies headache(s) and Reports weight loss ENT Denies dizziness and Denies headache(s) Card Denies chest pain and Denies dyspnea Resp Denies chest congestion and Denies dyspnea GI Denies change in bowel habits Details: Currently seeing Dr. Stoner her urologist for recurrent urinary tract infection Musc Reports abnormal gait, Denies joint swelling and Reports stiffness Skin/Breast Denies lesions and Denies rash Neuro Reports abnormal gait, Denies dizziness and Denies headache(s) Psych Reports no additional complaints Endo Denies polydipsia and Denies polyuria Scottie/Lymph Reports no additional complaints Aller/Immun Reports no additional complaints Physical exam (Primary Care) Vital Signs: Last Vital Signs Temp 98.1 F 03/05/25 11:58 Pulse 73 03/05/25 11:58 Resp 15 03/05/25 11:58 BP 130/76 03/05/25 11:58 Pulse Ox 95 03/05/25 11:58 Oxygen Delivery Method Room Air 03/05/25 11:58 BMI result Body Mass Index 37.0 Tobacco/Smoking Status: Tobacco use Status Tobacco use date assessed 03/05/25 03/05/25 12:02 Patient Tobacco Use Status Former Tobacco user 03/05/25 12:02 Tobacco use type Cigarette 03/05/25 12:02 e-Cigarette/Vaping Use Never Used 03/05/25 12:02 Thrive Assessment: Date of Thrive Assessment Date Thrive assessed 02/14/25 03/05/25 12:02 Const Other: Alert oriented x3, no acute distress noted, morbidly obese, ambulatory with aid of walker and grandson present in room Nutritional Appearance: obese morbidly obese Orientation/consciousness: patient oriented x3 HENMT Mouth: Normal oral and palatal mucosa present and moist mucous membranes Eyes General: appearance normal, both eyes and all related structures Neck Neck: Yes normal visual inspection, Yes full ROM, Yes no lymphadenopathy and Yes supple Resp Auscultation: clear to auscultation bilaterally Cardio Other: S1-S2 present regular rate and rhythm GI Other: Normal bowel sounds, soft, nontender Back/Spine/Pelvis Thoracic/Lumbar Spine: paraspinal muscle tenderness on the left in the lower lumbar and thoraco-lumbar ROM limited Skin General skin exam: no rashes or lesions noted Neuro General: patient oriented x3, moves all extremities, Normal light touch and pain sensation, no focal motor deficits and CN's II-XI intact bilaterally Gait exam (Neuro): Assisted gait required Gait assisted method: walker Extrem General: Yes no joint enlargement, Yes no clubbing, cyanosis or edema and Yes no calf tenderness Psych Appearance: grossly normal and well kempt Mental Status: mental status grossly normal Speech and movement: Normal speech and movement present and Clear speech present Affect: normal affect Thought process: Normal thought process present Results Reviewed Results Reviewed: deonte: Lorelei Driscoll Age/Sex: 69/F [facility] 1955 [id number]#: [id number] Attend Dr: Ramona Damico MD Re03/03/25 Status: DEP [facility] Disch: SPEC : [id number] YI: 03/03/25 STATUS: COMP REQ : [id number] RECD: 03/03/[address]: Ramona Damico MD COMP: 03/03/25 ENTERED: 03/03/[address] [facility] [address]: ORDERED: Met Prof Fast, AST, ALT, Lipid Panel, Vitamin D 25-OH Test Result Flag Reference Sodium 142 135-145 mmol/L Potassium 4.5 3.3-5.1 mmol/L CL 104 96-108 mmol/L CO2 29 22-29 mmol/L Gap 14 12-20 BUN 10 9-16 mg/dL Creat 0.81 0.5-1.4 mg/dL eGFR > 60 Chronic Kidney Disease: Estimated GFR < 60 mL/min/1.73m2 Severe Kidney Disease: Estimated GFR < 15 mL/min/1.73m2 FBS 127 H 60-99 mg/dL A fasting glucose of 126 mg/dl or greater on more than one occasion is considered diagnostic of diabetes. CA 8.7 8.4-10.2 mg/dL AST (GOT) 98 H 5-31 U/L ALT (GPT) 27 0-31 U/L Triglyceride 127 <150 mg/dL Desirable Triglyceride: less than 150 mg/dL Borderline High Triglyceride 150-199 mg/dL High Triglyceride: 200-499 mg/dL Very High Triglyceride: greater than or equal to 5OO mg/dL Cholesterol 134 <200 mg/dL Desirable Cholesterol: less than 200 mg/dL Borderline High Cholesterol: 200-239 mg/dL High Cholesterol: greater than 239 mg/dL LDL Calculated 73 <100 mg/dL Desirable LDL: less than 100 mg/dL Near Optimal/Above Optimal LDL: 110-129 mg/dL Borderline High LDL: 130-159 mg/dL High LDL: 160-189 mg/dL Very High LDL: greater than or equal to 190 mg/dL HDL 36 L >40 mg/dL Desirable HDL: greater than 40 mg/dL Note: This HDL assay may give artificially low results in patients with liver disease. Vitamin D 25-OH 25.2 L >30 ng/mL Health Based Reference Values* < 20 ng/mL Deficient 20-30 ng/mL Insufficient > 30 ng/mL Sufficient Laboratory Tests 03/03/25 09:01 Estimat Average Glucose 114 Hemoglobin A1c % 5.6 Coding Level of Care Code Est Pt Level 4 (31781) Complex EM visit Add On G2211 Diagnoses Vitamin D deficiency E55.9 Dyslipidemia E78.5 Diabetes mellitus with microalbuminuria, without long-term current use of insulin E11.29; R80.9 Herniation of lumbar intervertebral disc with radiculopathy M51.16 Osteoarthritis of knees, bilateral M17.0 Difficulty in walking involving joint of multiple sites R26.2 Osteoporosis M81.0 Assessment & Plan Assessment & Plan (1) Vitamin D deficiency: Code(s): E55.9 - Vitamin D deficiency, unspecified Category: Medical Plan: Prescription sent for cholecalciferol 77464 units per capsule to take once a week for the next 3 months. Once prescription finished to continue taking dsfr-yip-buatgji vitamin-D 3 at 2000 units daily (2) Dyslipidemia: Code(s): E78.5 - Hyperlipidemia, unspecified Category: Medical Plan: Reviewed recent fasting lipid profile with patient with levels within normal limits . Continue atorvastatin 10 mg every other day , in addition to adherence to low-cholesterol diet and regular exercise, at least 30 minutes 3 to 4 times a week. Advised patient to make healthy food choices, eat more fruits, vegetables, whole grains, wild caught fish and low-fat dairy. Limit amount of meat and fried or fatty food products, as well as processed foods and fast foods. Follow-up scheduled with repeat fasting lipid panel in 3 months. (3) Diabetes mellitus with microalbuminuria, without long-term current use of insulin: Code(s): E11.29 - Type 2 diabetes mellitus with other diabetic kidney complication; R80.9 - Proteinuria, unspecified Category: Medical Plan: Diabetes mellitus well controlled with hemoglobin A1c at 5.6%. Continued on metformin ER 500 mg daily, in addition to adherence to healthy eating habits and staying active. Reminded to have yearly diabetes eye exam. (4) Herniation of lumbar intervertebral disc with radiculopathy: Code(s): M51.16 - Intervertebral disc disorders with radiculopathy, lumbar region Category: Medical Plan: Takes Tylenol as needed for joint pains, continue with adherence to healthy eating habits and regular exercise so as lose more weight, prescription was written for a Rollator walker with seat and transport wheelchair as well as a shower chair (5) Osteoarthritis of knees, bilateral: Code(s): M17.0 - Bilateral primary osteoarthritis of knee Category: Medical Plan: Has difficulty with ambulation, prescription written for transport wheelchair and a walker with wheels and seat, takes Tylenol as needed for joint pains (6) Difficulty in walking involving joint of multiple sites: Code(s): R26.2 - Difficulty in walking, not elsewhere classified Category: Medical Plan: Prescription printed for a walker with seat, transport wheelchair and sliding shower chair for help with getting around and providing stability when showering (7) Osteoporosis: Code(s): M81.0 - Age-related osteoporosis without current pathological fracture Category: Medical Plan: Prescription sent for vitamin-D 3 replacement, continue taking calcium from dietary sources, has an appointment to see Dr. Campa for further evaluation and management regarding osteoporosis at the end of the month Orders: Orders Hemoglobin A1c 05/20/25 E11.29 - Type 2 diabetes mellitus with other diabetic kidney complication, E55.9 - Vitamin D deficiency, unspecified, E78.5 - Hyperlipidemia, unspecified, Q78.2 - Osteopetrosis, R80.9 - Proteinuria, unspecified, Z78.0 - Asymptomatic menopausal state, Z79.01 - superintendent terminal (current) use of anticoagulants Microalbumin, Random (w Creat) 03/05/25 E11.29 - Type 2 diabetes mellitus with other diabetic kidney complication, R80.9 - Proteinuria, unspecified Lipid Panel 05/20/25 E11.29 - Type 2 diabetes mellitus with other diabetic kidney complication, E55.9 - Vitamin D deficiency, unspecified, E78.5 - Hyperlipidemia, unspecified, Q78.2 - Osteopetrosis, R80.9 - Proteinuria, unspecified, Z78.0 - Asymptomatic menopausal state, Z79.01 - snf (current) use of anticoagulants Alanine Aminotransferase 05/20/25 E11.29 - Type 2 diabetes mellitus with other diabetic kidney complication, E55.9 - Vitamin D deficiency, unspecified, E78.5 - Hyperlipidemia, unspecified, Q78.2 - Osteopetrosis, R80.9 - Proteinuria, unspecified, Z78.0 - Asymptomatic menopausal state, Z79.01 - snf (current) use of anticoagulants Aspartate Amino Transferase 05/20/25 E11.29 - Type 2 diabetes mellitus with other diabetic kidney complication, E55.9 - Vitamin D deficiency, unspecified, E78.5 - Hyperlipidemia, unspecified, Q78.2 - Osteopetrosis, R80.9 - Proteinuria, unspecified, Z78.0 - Asymptomatic menopausal state, Z79.01 - superintendent terminal (current) use of anticoagulants Basic Metabolic Panel Fasting 05/20/25 E11.29 - Type 2 diabetes mellitus with other diabetic kidney complication, E55.9 - Vitamin D deficiency, unspecified, E78.5 - Hyperlipidemia, unspecified, Q78.2 - Osteopetrosis, R80.9 - Proteinuria, unspecified, Z78.0 - Asymptomatic menopausal state, Z79.01 - superintendent terminal (current) use of anticoagulants Vitamin D 25-OH Total 05/20/25 E11.29 - Type 2 diabetes mellitus with other diabetic kidney complication, E55.9 - Vitamin D deficiency, unspecified, E78.5 - Hyperlipidemia, unspecified, Q78.2 - Osteopetrosis, R80.9 - Proteinuria, unspecified, Z78.0 - Asymptomatic menopausal state, Z79.01 - superintendent terminal (current) use of anticoagulants Complete Blood Count Auto Diff 05/20/25 E11.29 - Type 2 diabetes mellitus with other diabetic kidney complication, E55.9 - Vitamin D deficiency, unspecified, E78.5 - Hyperlipidemia, unspecified, Q78.2 - Osteopetrosis, R80.9 - Proteinuria, unspecified, Z78.0 - Asymptomatic menopausal state, Z79.01 - snf (current) use of anticoagulants IRON PROFILE 05/20/25 E11.29 - Type 2 diabetes mellitus with other diabetic kidney complication, E55.9 - Vitamin D deficiency, unspecified, E78.5 - Hyperlipidemia, unspecified, Q78.2 - Osteopetrosis, R80.9 - Proteinuria, unspecified, Z78.0 - Asymptomatic menopausal state, Z79.01 - snf (current) use of anticoagulants Medications: New Shower Chair As directed, needs sliding shower chair, half on and half off tub 1 ea 0RF Weakness in extremities M17.0 - Bilateral primary osteoarthritis of knee, M51.16 - Intervertebral disc disorders with radiculopathy, lumbar region cholecalciferol (vitamin D3) 1,250 mcg PO QWEEK 3 months 13 caps 0RF E55.9 - Vitamin D deficiency, unspecified, Q78.2 - Osteopetrosis [Transport wheelchair] As directed 1 ea 0RF M17.0 - Bilateral primary osteoarthritis of knee, M51.16 - Intervertebral disc disorders with radiculopathy, lumbar region, Q78.2 - Osteopetrosis, R26.2 - Difficulty in walking, not elsewhere classified walker (Ultra-Light Rollator misc) As directed , needs with seat 1 ea 0RF Gait instability M17.0 - Bilateral primary osteoarthritis of knee, M51.16 - Intervertebral disc disorders with radiculopathy, lumbar region, R26.2 - Difficulty in walking, not elsewhere classified
[2025-03-05 11:58] VITALS: BP 130/76; PULSE 73; RESP 15; TEMP 36.7; O2SAT 95; BMI 37.0
--- OUTSIDE RECORDS SUMMARY | 2025-03-05 13:50 | XMS_ITS | Encounter Summary ---
Author Organization [facility] Address [address] [place] [address] Care Team Providers Care Director Of Partner Marketing Name Role Phone Ramona Damico MD Primary Care Provider Encounter Details Date Type Department Care Team (Late st Contact Info) Description 10/25/2024 Lab Requisition [facility] - Main Lab [address] [facility] [place] [phone] Kevin June PA [address] [place] [address] Pyuria Social History Tobacco Use Types Packs/Day [...] Description 09/02/2025 1:30 PM EDT Office Visit [facility] [address] [place] [phone] Audie Bonilla MD [address] [place] [address] DRIVE [address] [place] [address] documented as of this encounter Procedures Procedure Name Priority Date/Time Associated Diagnosis Comments BACTERIAL IDENTIFICATION AND SUSCEPTIBILITY, AEROBIC Routine 10/24/2024 12:00 AM EST Pyuria documented in this encounter Results * (ABNORMAL) Bacterial identification and susceptibility, aerobic (10/24/2024 12:00 AM EST) Culture, Bacterial ID and Sensitivity Klebsiella pneumoniae ssp pneumoniae(A) DEANNA 10/26/2024 9:39 AM EST [facility] Comment: This is an edited result. [...] ([facility]) HOSPITAL LAB [address] [place] [address], documented in this encounter Visit Diagnoses Diagnosis Pyuria Other nonspecific finding on examination of urine documented in this encounter Care Teams Director Of Partner Marketing Relationship Specialty Start Date End Date Ramona Damico MD [address] [place] [address] PCP - General 11/20/12 documented as of this encounter
--- OUTSIDE RECORDS SUMMARY | 2025-03-05 13:50 | XMS_ITS | Encounter Summary ---
Author Organization [facility] Address [address] [place] [address] Care Team Providers Care Assistant Field Hockey Coach Name Role Phone Ramona Damico MD Primary Care Provider Encounter Details Date Type Department Care Team (Late st Contact Info) Description 12/25/2024 Lab Requisition [facility] - Main Lab [address] [facility] [place] [phone] Lori Weston NP [address] [facility] [address] [place] [address] Gross hematuria Social History Tobacco Use Types [...] Description 09/02/2025 1:30 PM EDT Office Visit [facility] [address] [place] [address] Audie Bonilla MD [address] [place] [address] [address] [place] [address] documented as of this encounter Procedures Procedure Name Priority Date/Time Associated Diagnosis Comments CULTURE URINE Routine 12/25/2024 12:00 AM EST Gross hematuria documented in this encounter Results * (ABNORMAL) Culture urine (12/25/2024 12:00 AM EST) Culture, Urine >100,000 CFU/mL Klebsiella pneumoniae ssp pneumoniae(A) DEANNA 12/28/2024 9:37 AM EST [facility] Comment: The organism value for this result has been updated. These results have been appended to the previously preliminary verified report. This is an edited result. Previous organism was Gram negative bacilli on 12/27/2024 at 1325 EST. Culture, Urine 10,000-49,000 CFU/mL Escherichia coli(A) DEANNA 12/28/2024 9:37 AM EST [facility] Comment: The organism value for this result has been updated. These results have been appended to the previously preliminary verified report. This is an edited result. Previous organism was Gram negative bacilli on 12/27/2024 at 1325 EST. Culture, Urine >100,000 CFU/mL Aerococcus sanguinicola(A ) DEANNA 12/28/2024 9:37 AM EST [facility] Comment: Susceptibility testing not routinely [...] MICROBIOLOGY - GENERA L ORDERABLES Final Result [facility] ([facility]) HOSPITAL LAB [address] [place] [address], [place] [phone] documented in this encounter Visit Diagnoses Diagnosis Gross hematuria documented in this encounter Care Teams Assistant Field Hockey Coach Relationship Specialty Start Date End Date Ramona Damico MD [address] [place] [address] PCP - General 11/20/12 documented as of this encounter
--- OUTSIDE RECORDS SUMMARY | 2025-03-05 13:50 | XMS_ITS | Clinical Summary ---
Author Organization [facility] Address [address] [place] [address] Phone Care Team Providers Care Loom Control Chain Builder Name Role Phone Ramona Singer MD Primary [...] unit) per tabletIndication s:Atrial fibrillation, unspecified type ([facility] V24, [facility] V28) Take 1 tablet by mouth 1 (one) time each day. Active Active Problems Problem Noted Date Diagnosed Date HLD (hyperlipidemia) 04/14/2023 Assessment & Plan (02/17/2025 4:51 PM EDT): Lipids are managed by her primary care provider. She continues on atorvastatin 10 mg once a day. A-fib ([facility] V24, [facility] V28) 04/14/2023 Assessment & Plan (02/17/2025 4:51 [...] on Eliquis for anticoagulation given her elevated [id number] score. We will continue to monitor her [...] hat when in direct sunlight. Heart failure ([facility] V24, [facility] V28) 023 Assessment & Plan (02/17/2025 4:51 [...] Description 02/17/2025 2:10 PM EDT Office Visit [facility] [address] [facility] [address] [place] [address] Pretty Ramos NP Atrial fibrillation, unspecified type (CMS/HCC V24, CMS/HCC V28) (Primary Dx); Heart failure, unspecified HF chronicity, unspecified heart failure type (CMS/HCC V24, CMS/HCC V28); Pericardial effusion; Mixed hyperlipidemia 12/25/2024 Lab Requisition [facility] - Main Lab [address] [facility] [place] [address] Lori Weston NP Gross hematuria [...] Description 09/02/2025 1:30 PM EDT Office Visit [facility] [address] [place] [phone] Audie Bonilla MD [address] [place] [address] [address] [place], [place] [phone] Health Maintenance Due Date Last Done Comments [...] GEMUSE QTc 497 ms GEMUSE P Wave Kennedy 67 degrees GEMUSE R Kennedy 34 degrees GEMUSE T Kennedy 44 degrees GEMUSE ECG Interpretation Normal sinus rhythm Nonspecific ST abnormality Prolonged QT Abnormal ECG When compared with ECG of 27-JUN-2024 22:53, No significant change was found Confirmed by Serenity BONILLA JAMES ([id number]) on 02/19/2025 12:33:06 PM GEMUSE 02/17/2025 2:08 PM EDT 02/19/2025 12:33 PM EDT Pretty Ramos LOGISTICS PLANNING MANAGER ECG ORDERABLES Edited Resul t - Final Performing Organization Address City/[facility]/ZIP Co de Phone Number GEMUSE * Thyroxine free (02/17/2025 2:32 PM EDT) T4 (Thyroxine) Free (Direct) 1.03 0.82 - 1.77 ng/dL [facility] 1 02/17/2025 2:32 PM EDT 02/17/2025 Narrative [facility] 1 - 02/18/2025 6:06 AM EDT Performed at: ??01 - [facility] [address] ??[id number] Glass Checker: Emili Edward MD, Phone: ??[phone] Pretty Ramos NP LAB BLOOD ORDERABLES Final R esult [facility] 1 * (ABNORMAL) Thyroid stimulating hormone with reflex free T4 (02/17/2025 2:32 PM EDT) Thyroid Stimulating Hormone (TSH) 8.930(H) 0.450 - 4.500 uIU/mL [facility] 1 Blood Venous blood specimen / Unknown 02/17/2025 2:32 PM EDT 02/17/2025 Narrative [facility] 1 - 02/18/2025 6:06 AM EDT Performed at: ??01 - [facility] [address] ??[id number] Glass Checker: Emili Edward MD, Phone: ??[phone] Prettyse Ramos LOGISTICS PLANNING MANAGER LAB BLOOD ORDERABLES Final R esult [facility] [...] AM EDT Performed at: ?? - [facility] [address] ??[id number] Glass Checker: Emili Edward MD, Phone: ??[phone] us Pretty Ramos LOGISTICS PLANNING MANAGER LAB BLOOD ORDERABLES Final R esult [facility] [...] AM EDT Performed at: ??01 - [facility] [address] ??[id number] Glass Checker: Emili Edward MD, Phone: ??[phone] us Pretty Ramos LOGISTICS PLANNING MANAGER LAB BLOOD ORDERABLES Final R esult [facility] 1 * (ABNORMAL) Culture urine (12/25/2024 12:00 AM EST) [facility] Culture, Urine >100,000 CFU/mL Klebsiella pneumoniae ssp pneumoniae(A) DEANNA 12/28/2024 9:37 AM EST [facility] Comment: The organism value for this result has been updated. These results have been appended to the previously preliminary verified report. This is an edited result. Previous organism was Gram negative bacilli on 12/27/2024 at 1325 EST. Culture, Urine 10,000-49,000 CFU/mL Escherichia coli(A) DEANNA 12/28/2024 9:37 AM EST [facility] Comment: The organism value for this result has been updated. These results have been appended to the previously preliminary verified report. This is an edited result. Previous organism was Gram negative bacilli on 12/27/2024 at 1325 EST. Culture, Urine >100,000 CFU/mL Aerococcus sanguinicola(A ) DEANNA 12/28/2024 9:37 AM EST [facility] Comment: Susceptibility testing not routinely [...] DEANNA <=20 ug/ml: Susceptible us Lori Weston LOGISTICS PLANNING MANAGER LAB MICROBIOLOGY - GENERA L ORDERABLES Final Result [facility] ([facility]) HOSPITAL LAB [address] [place] [address], * GURINDER DEXA AXIAL SKELETON (09/11/2024 10:12 AM EDT) Anatomical Region Laterality Modality Mammography 09/05/2024 1:27 PM EDT Narrative 09/11/2024 10:12 AM EDT [facility] Diagnostic Imaging Department [address] [place] [address] Patient: ??DANIELE MATAMOROS ?/Age/Sex: 1955 - - F Unit#: ??[id number] ? Location/Status: ??SPDIMAM/REG CLI ? Mnemonic/Ordering Site: ??MAMDEXAAX/SPMAM Ordering Physician: ??RAMONA SINGER MD [facility] Dexa Axial Skeleton - 09/05/24 - [id number] Report Status:Signed History: Low estrogen state due to menopause. Personal history of fracture. Comparison: No comparison imaging at this institution. Findings: Bone densitometry is performed utilizing dual energy x-ray absorptiometry (DXA) in the [employer]REL unit. The lumbar spine and proximal femora [...] 48.2 percent ??Hip 28.3 percent. IMPRESSION: Osteoporosis. [id number] Dictating Physician: ??TEREZA EVANGELISTA MD Electronically Signed by: ??TEREZA EVANGELISTA MD Dic Date/Time: ??09/11/24 1011 Sign date/Time: ??09/11/24 1012 Procedure Note Tereza Evangelista MD - 09/17/2024 [facility] Diagnostic Imaging Department [address] [place] [id number] Patient: DANIELE MATAMOROS/Age/Sex: 1955 - 68 - F Unit#: [id number] Location/Status: SPDIMAM/REG CLI Mnemonic/Ordering Site: MAMDEXAAX/SPMAM Ordering Physician: RAMONA SINGER MD Gurinder Dexa Axial Skeleton - 09/05/24 - 2593 Report Status:Signed History: Low estrogen state due to menopause. Personal history offracture. Comparison: No comparison imaging at this institution. Findings: Bone densitometry is performed utilizing dual energy x-ray absorptiometry(DXA) in the [employer] unit. The lumbar spine and proximal femora [...] 48.2 percent Hip 28.3 percent. IMPRESSION: Osteoporosis. [id number] Dictating Physician: TEREZA EVANGELISTA MD Electronically Signed by: TEREZA EVANGELISTA MD Dic Date/Time: 09/11/24 1011 Sign date/Time: 09/11/24 1012 us Ramona Singer MD IMG BI PROCEDURES Final Res ult from Last 3 Months or Most Recently Relevant to Health Maintenance Insurance [facility] Member Subscriber Plan / Payer (Ef fective 2024-Present) Name:Daniele Matmaoros Relation to Subscriber:Self Name:Daniele Matamoros Payer ID:[id number] Group ID:Not on file Type:Not on file Address: [address] [id number] Care Teams Loom Control Chain Builder Relationship Specialty Start Date End Date Ramona Singer MD [address] [place] [address] PCP - General 11/20/12
== END 2025-03-05 13:34 | disposition home or self-care (01) ==
LOC: HO.HMCC 11:24
PROVIDERS: PCP Internal Medicine; Visit Provider Internal Medicine
DX: E55.9 Vitamin D deficiency, unspecified (principal); E78.5 Hyperlipidemia, unspecified; E11.29 Type 2 diabetes mellitus with other diabetic kidney complication; R80.9 Proteinuria, unspecified; M51.16 Intervertebral disc disorders with radiculopathy, lumbar region; M17.0 Bilateral primary osteoarthritis of knee; R26.2 Difficulty in walking, not elsewhere classified; M81.0 Age-related osteoporosis without current pathological fracture

== ENCOUNTER → 2025-03-05 11:23 | Outpatient (BNVA) | payer OTHER, SELFPAY | PROVIDERS: PCP Internal Medicine; Visit Provider Internal Medicine | DX: E55.9 Vitamin D deficiency, unspecified (principal); E78.5 Hyperlipidemia, unspecified; E11.29 Type 2 diabetes mellitus with other diabetic kidney complication; R80.9 Proteinuria, unspecified; M51.16 Intervertebral disc disorders with radiculopathy, lumbar region; M17.0 Bilateral primary osteoarthritis of knee; R26.2 Difficulty in walking, not elsewhere classified; M81.0 Age-related osteoporosis without current pathological fracture; Z79.84 Long term (current) use of oral hypoglycemic drugs; Z79.899 Other long term (current) drug therapy | CPT/HCPCS: 99212 ==

== ENCOUNTER 2025-03-18 13:46 | Outpatient (AMB) | payer OTHER, SELFPAY ==
--- NOTE | 2025-03-18 13:57 | MHC.OFFVIS ---
Vital Signs 03/18/25 14:00 Height 5 ft 1.38 in Weight 229 lb 8.019 oz BMI 42.8 BP 112/82 Blood Pressure Location Rt brachial Position Sitting Pulse 77 Pulse Source Pulse Oximeter Pulse Oximetry (%) 95 Oxygen Delivery Method Room Air Intake Visit Reasons: Osteoporosis Intake Note: New patient internally referred by PCP for Osteoporosis. Floor Refinisher Required: No Accompanied by: Grandchild Allergies No Known Allergies [No Known Allergies*] Allergy (Verified 03/18/25 14:01) pollen Allergy (Intermediate, Uncoded 03/18/25 14:01) nasal congestion Medication List - Last Reconciled 03/18/25 by Adalid Campa MD albuterol sulfate 90 mcg/actuation 2 puffs inhalation Q6H PRN amiodarone 400 mg PO DAILY apixaban (Eliquis) 5 mg PO Q12H atorvastatin 10 mg PO . every other day 90 days [Bath seat cushion As directed] blood sugar diagnostic (FreeStyle Lite Strips) Check fasting blood sugar daily daily; cholecalciferol (vitamin D3) 100 mcg (2 x 50 mcg (2,000 unit)) PO DAILY docusate sodium 100 mg PO BID 30 days furosemide 20 mg PO QAM gabapentin 600 mg (2 x 300 mg) PO BEDTIME metformin ER 500 mg PO DAILY omega-3 fatty acids 2,000 mg PO DAILY Shower Chair As directed, needs sliding shower chair, half on and half off tub [Transport wheelchair As directed] vibegron (Gemtesa) 75 mg PO DAILY walker (Ultra-Light Rollator misc) As directed , needs with seat HPI Comments Details: The patient is a 69-year-old female presenting with osteoporosis. She was diagnosed with osteoporosis approximately four years ago, and the condition has been progressive over time. Notably, she experienced a rib fracture last year due to coughing and an earlier wrist fracture eight years ago because of an ice fall. Her bone density has declined markedly based on recent tests. There is a significant family history of osteoporosis. The patient has not been on any osteoporosis-specific medication until now. She currently takes calcium supplements of 600 mg once daily and previously took vitamin D 2000 IU daily until transitioning to a higher dose of 5000 IU once a week due to low iron levels. Of concern is her diminished bone health, evidencing through loss of height and an inability to maintain an upright posture without discomfort. She reports ongoing efforts with dietary calcium intake. Her osteoporosis care is compounded by her history of cervical cancer treated with radiation over three decades ago, and a current leg catheter necessitated by bladder issues from past radiation therapy. First diagnosed in 4 yrs ago . Not Received treatment in the past . history of pathologic fracture of ribs last yr from coughing or ONJ. Has several servings of dietary calcium per day in the form of milk, cereal, yogurt , juice . Takes Calcium supplement 600 mg daily in divided doses. Takes 41218 IU of Vitamin D weekly just started for 3 mos and 2000 iu daily. Denies ever using PPI, +anticoagulant Eliqis , antiepileptic or glucocorticoid medication. Does weight bearing exercise 7days per week in the form of light weights . The patient engages in weight-bearing exercise using 2-pound hand weights at least once daily. Fracture history: wrist fx 8 yrs ago after falling on ice Height loss: yes SCRAP STRIPPER HAND history: Menarche at age 9 - Menopause at age 37 CHEMO - took ERT for 2 mos Denies history of Kidney stones: Has family history of Osteoporosis in sister and niece but no hip fracture. UTD on dental cleanings and sees dentist every 6 months. No planned upcoming dental work or extractions. Ex tabacco user - no heavy ETOH abuse Hx of RT for cervical cancer 31 yrs ago DXA dated 09/05/2024: T-score of-5.1 in the right total femur Labs: [facility] Medical History (Updated 03/11/25 @ 01:38 by Ramona Damico MD) Osteoporosis Difficulty in walking involving joint of multiple sites Anticoagulated on Eliquis Multiple rib fractures involving four or more ribs Bladder squamous metaplasia Vitamin D deficiency Diabetes mellitus with microalbuminuria, without long-term current use of insulin History of cardioversion History of atrial fibrillation Urinary bladder incontinence Recurrent UTI (urinary tract infection) Postmenopause Pulmonary nodule, right Osteoarthritis of knees, bilateral Paresthesia of skin History of cervical cancer Herniation of lumbar intervertebral disc with radiculopathy Seasonal allergic rhinitis Dyslipidemia Surgical History History of cholecystectomy History of lumbar laminectomy Hx of total hysterectomy Family History Father Coronary artery disease COPD (chronic obstructive pulmonary disease) Mother Diabetes mellitus Hypertension Daughter Breast cancer Mental health disorder Sister Breast cancer Social History Housing: Apartment Alcohol intake: never Patient Tobacco Use Status: Former Tobacco user Tobacco use type: Cigarette Years Smoked: 21 e-Cigarette/Vaping Use: Never Used Second Hand Smoke Exposure: No Current occupational status: retired Cognitive needs: No Hearing needs: No Vision needs: Yes Physical Exam There are no Cushingoid features. Absence of blue sclera. Absence of kyphosis. Thyroid gland is of nl size and weighs 15 gms. There are no thyroid nodules palpated. Lungs CTA. Heart S1 S2 Reg R/R Abdominal exam benign. Muscle strength 5/5 . Examination of spine reveals absence of tenderness on palpation Assessment & Plan Assessment & Plan (1) Osteoporosis: Code(s): M81.0 - Age-related osteoporosis without current pathological fracture Category: Medical Plan: This is a 69-year-old white female with a history of obesity as well as severe osteoporosis based on very low T-score as well as history of rib fractures. Positioning on most recent DEXA and change from 3 years suggest that positioning during the DEXA of the hip was not optimal. Rule out secondary causes The plan is to check a TSH, free T4, 24 hour urine for free cortisol and creatinine, phosphorus, SPEP, urine immunofixation. We will also check 24 hour urine for free cortisol and creatinine rule out Srinivasa's. Will ensure 1200 mg of calcium and continued vitamin D supplementation. Can talk to patient about repeating DEXA different facility but this may not be reimbursable. Considering very low bone density and high risk of fracture, patient may be a candidate for anabolic therapy once secondary workup is complete 1. Osteoporosis Osteoporosis management involves secondary cause evaluation, diagnostic clarity on bone density conduct, and therapeutic initiatives with Evenity for bone mass buildup, later switching to Fosamax post-treatment pending an insurance directive. 3. Low Vitamin D Levels Amend vitamin D supplementation from 5000 IU weekly to 4000 IU daily to achieve and maintain normal levels, with follow-up lab draws scheduled. . During our discussion, I reviewed the concerning deterioration of T-scores indicating osteoporosis progression. We examined potential inaccuracies in recent bone density results due to testing errors and the need for reliable positioning. I articulated the critical nature of therapy in fracture prevention and our plan to initiate Evenity injections, outlining that prior cervical cancer treatment limits alternative medication like Forteo and Tymlos. Risks and benefits of Evenity, supported by case success stories, including improvements in T-scores and fracture risk reduction, were discussed. I highlighted our comprehensive diagnostic approach, ruling out secondary causes through targeted lab work. Post-Evenity therapy with bisphosphonates was proposed, pending insurer decisions. The patient agreed with this plan. I emphasized safe home environments to mitigate fall risks and noted family history support. - Will consider Evenity injections monthly once secondary workup is cmpleted - Continue current medications: Calcium 600 mg daily, Vitamin D 4000 IU daily, . - Ensure daily intake adds up to 1200 mg of total calcium. - shirt ironer supervisor necessary labs for urine collection and coordinate blood tests in 4-8 weeks. - Avoid hazardous fall-prone areas at home and maintain exercise routine. - Follow up in three months or sooner upon experiencing a fracture or new health issue. The patient had an opportunity to ask questions regarding treatment plan. The patient expressed understanding and agreement with the above treatment plan. Patient was informed and verbally consented to the use of an ambient scribe for clinic note documentation during this visit. Orders: Orders Free T4 (Free Thyroxine) 2 Months M81.0 - Age-related osteoporosis without current pathological fracture Immunofixation, Random Urine 2 Months M81.0 - Age-related osteoporosis without current pathological fracture Albumin Level 2 Months M81.0 - Age-related osteoporosis without current pathological fracture Calcium, 24 Hr Ur 2 Months M81.0 - Age-related osteoporosis without current pathological fracture Creatinine, 24 Hr Group 2 Months M81.0 - Age-related osteoporosis without current pathological fracture Thyroid Stimulating Hormone 2 Months M81.0 - Age-related osteoporosis without current pathological fracture Protein Electrophoresis, Serum 2 Months M81.0 - Age-related osteoporosis without current pathological fracture Phosphorus 2 Months M81.0 - Age-related osteoporosis without current pathological fracture Cortisol, Free 24Hr Urine 2 Months M81.0 - Age-related osteoporosis without current pathological fracture Vitamin D 25-OH Total 2 Months E55.9 - Vitamin D deficiency, unspecified Calcium 2 Months M81.0 - Age-related osteoporosis without current pathological fracture Medications: New cholecalciferol (vitamin D3) 100 mcg (2 x 50 mcg (2,000 unit)) PO DAILY 60 caps 6RF Discontinued cholecalciferol (vitamin D3) Discontinued Reason: Doctor's Order 50 mcg PO DAILY 90 caps 2RF cholecalciferol (vitamin D3) Discontinued Reason: Doctor's Order 1,250 mcg PO QWEEK 13 caps 0RF 3 months E55.9 - Vitamin D deficiency, unspecified, Q78.2 - Osteopetrosis Coding Level of Care Code New Pt Level 4 (72237) Diagnoses Osteoporosis M81.0
[2025-03-18 14:00] VITALS: BP 112/82; PULSE 77; O2SAT 95; BMI 42.8
--- OUTSIDE RECORDS SUMMARY | 2025-03-18 15:54 | XMS_ITS | Encounter Summary ---
Author Organization [facility] Address [address] [place] [address] Care Team Providers Care Documentation Billing Clerk Name Role Phone Ramona Damico MD Primary Care Provider Encounter Details Date Type Department Care Team (Late st Contact Info) Description 12/25/2024 Lab Requisition [facility] - Main Lab [address] [place] [phone] Lori Weston NP [address] [facility] [address] [place], [place] [phone] Gross hematuria Social History Tobacco Use Types [...] Description 09/02/2025 1:30 PM EDT Office Visit [facility] Cardiology [address] [place] [phone] Audie Bonilla MD [address] [place] [address] [address] [place] [address] documented as of this encounter Procedures Procedure Name Priority Date/Time Associated Diagnosis Comments CULTURE URINE Routine 12/25/2024 12:00 AM EST Gross hematuria documented in this encounter Results * (ABNORMAL) Culture urine (12/25/2024 12:00 AM EST) Culture, Urine >100,000 CFU/mL Klebsiella pneumoniae ssp pneumoniae(A) DEANNA 12/28/2024 9:[address] [facility] Comment: The organism value for this result has been updated. These results have been appended to the previously preliminary verified report. This is an edited result. Previous organism was Gram negative bacilli on 12/27/2024 at 1325 EST. Culture, Urine 10,000-49,000 CFU/mL Escherichia coli(A) DEANNA 12/28/2024 9:[address] [facility] Comment: The organism value for this result has been updated. These results have been appended to the previously preliminary verified report. This is an edited result. Previous organism was Gram negative bacilli on 12/27/2024 at 1325 EST. Culture, Urine >100,000 CFU/mL Aerococcus sanguinicola(A ) DEANNA 12/28/2024 9:[address] [facility] Comment: Susceptibility testing not routinely [...] DEANNA <=20 ug/ml: Susceptible us Lori Weston NP LAB MICROBIOLOGY - GENERA L ORDERABLES Final Result [facility] [address] [place] [address], [place] [phone] documented in this encounter Visit Diagnoses Diagnosis Gross hematuria documented in this encounter Care Teams Documentation Billing Clerk Relationship Specialty Start Date End Date Ramona Damico MD [address] [place] [address] PCP - General 11/20/12 documented as of this encounter
--- OUTSIDE RECORDS SUMMARY | 2025-03-18 15:54 | XMS_ITS | Encounter Summary ---
Author Organization [facility] Address [address] [place] [address] Care Team Providers Care Tankage Grinder Operator Name Role Phone Ramona Damico MD Primary Care Provider [phone] Encounter Details Date Type Department Care Team (Late st Contact Info) Description 10/25/2024 Lab Requisition [facility] - Main Lab [address] [facility] [place] [phone] Kevin June PA [address] [place] [address] Pyuria Social History Tobacco Use Types Packs/Day [...] 09/02/2025 1:30 PM EDT Office Visit [facility] Cardiology [address] [place] [phone] Audie Bonilla MD [address] [place] [address] DRIVE [address] [place] [address] documented as of this encounter Procedures Procedure Name Priority Date/Time Associated Diagnosis Comments BACTERIAL IDENTIFICATION AND SUSCEPTIBILITY, AEROBIC Routine 10/24/2024 12:00 AM EST Pyuria documented in this encounter Results * (ABNORMAL) Bacterial identification and susceptibility, aerobic (10/24/2024 12:00 AM EST) Culture, Bacterial ID and Sensitivity Klebsiella pneumoniae ssp pneumoniae(A) DEANNA 10/26/2024 9:39 AM EST [facility] Comment: This is an edited result. [...] ORDER CAPO Final Result [facility] [place] [facility] H[facility] LAB [address] [place] [address], documented in this encounter Visit Diagnoses Diagnosis Pyuria Other nonspecific finding on examination of urine documented in this encounter Care Teams Tankage Grinder Operator Relationship Specialty Start Date End Date Ramona Damico MD [address] [place] [address] PCP - General 11/20/12 documented as of this encounter
--- OUTSIDE RECORDS SUMMARY | 2025-03-18 15:55 | XMS_ITS | Clinical Summary ---
Author Organization [facility] Address [address] [place] [address] Phone Care Team Providers Care Administrative Office Assistant Name Role Phone Ramona Singer MD Primary Care Provider [phone] Allergies No known active allergies Medications apixaban [...] unit) per tabletIndication s:Atrial fibrillation, unspecified type ([facility] V24, [facility] V28) Take 1 tablet by mouth 1 (one) time each day. Active Active Problems Problem Noted Date Diagnosed Date HLD (hyperlipidemia) 04/14/2023 Assessment & Plan (02/17/2025 4:51 PM EDT): Lipids are managed by her primary care provider. She continues on atorvastatin 10 mg once a day. A-fib ([facility] V24, [facility] V28) 04/14/2023 Assessment & Plan (02/17/2025 4:51 [...] on Eliquis for anticoagulation given her elevated [id number] score. We will continue to monitor her [...] hat when in direct sunlight. Heart failure (CMS/[facility] V24, [facility] V28) 023 Assessment & Plan (02/17/2025 4:51 [...] Description 02/17/2025 2:10 PM EDT Office Visit [facility] Associates [facility] [address] [place] [address] Pretty Ramos NP Atrial fibrillation, unspecified type (CMS/HCC V24, CMS/HCC V28) (Primary Dx); Heart failure, unspecified HF chronicity, unspecified heart failure type (CMS/HCC V24, CMS/HCC V28); Pericardial effusion; Mixed hyperlipidemia 12/25/[address] [facility] - Main Lab [address] [facility] [place] [address] Lori Weston NP Gross hematuria [...] Description 09/02/2025 1:30 PM EDT Office Visit [facility] Cardiology [facility] [address] [place] [phone] Audie Bonilla MD [address] [place] [address] DRIVE [address] [place], [place] [phone] Health Maintenance Due Date Last Done Comments [...] GEMUSE QTc 497 ms GEMUSE P Wave Spickard 67 degrees GEMUSE R Spickard 34 degrees GEMUSE T Spickard 44 degrees GEMUSE ECG Interpretation Normal sinus rhythm Nonspecific ST abnormality Prolonged QT Abnormal ECG When compared with ECG of 27-JUN-2024 22:53, No significant change was found Confirmed by Serenity BONILLA JAMES ([id number]) on 02/19/2025 12:33:06 PM GEMUSE 02/17/2025 2:08 PM EDT 02/19/2025 12:33 PM EDT Pretty Ramos CYBER SECURITY ARCHITECT ECG ORDERABLES Edited Resul t - Final Performing Organization Address City/[facility]/ZIP Co de Phone Number GEMUSE * Thyroxine free (02/17/2025 2:32 PM EDT) T4 (Thyroxine) Free (Direct) 1.03 0.82 - 1.77 ng/dL [facility] 1 02/17/2025 2:32 PM EDT 02/17/2025 Narrative [facility] 1 - 02/18/2025 6:06 AM EDT Performed at: ??01 - [facility] [address] ??[id number] Bi Data Modeler: Emili Edward MD, Phone: ??[phone] Pretty Ramos NP LAB BLOOD ORDERABLES Final R esult [facility] 1 * (ABNORMAL) Thyroid stimulating hormone with reflex free T4 (02/17/2025 2:32 PM EDT) Thyroid Stimulating Hormone (TSH) 8.930(H) 0.450 - 4.500 uIU/mL [facility] 1 Blood Venous blood specimen / Unknown 02/17/2025 2:32 PM EDT 02/17/2025 Narrative [facility] 1 - 02/18/2025 6:06 AM EDT Performed at: ??01 - [facility] [address] ??[id number] Bi Data Modeler: Emili Edward MD, Phone: ??[phone] Prettyse Ramos CYBER SECURITY ARCHITECT LAB BLOOD ORDERABLES Final R esult [facility] [...] AM EDT Performed at: ?? - [facility] [address] ??[id number] Bi Data Modeler: Emili Edward MD, Phone: ??[phone] us Pretty Raoms CYBER SECURITY ARCHITECT LAB BLOOD ORDERABLES Final R esult [facility] [...] AM EDT Performed at: ??01 - [facility] [address] ??[id number] Bi Data Modeler: Emili Edward MD, Phone: ??[phone] us Pretty Ramos CYBER SECURITY ARCHITECT LAB BLOOD ORDERABLES Final R esult [facility] 1 * (ABNORMAL) Culture urine (12/25/2024 12:00 AM EST) [facility] Culture, Urine >100,000 CFU/mL Klebsiella pneumoniae ssp pneumoniae(A) DEANNA 12/28/2024 9:37 AM EST [facility] Comment: The organism value [...] DEANNA <=20 ug/ml: Susceptible us Lori Weston CYBER SECURITY ARCHITECT LAB MICROBIOLOGY - GENERA L ORDERABLES Final Result [facility] ([facility] HOSPITAL LAB [address] [place] [address], * GURINDER DEXA AXIAL SKELETON (09/11/2024 10:12 AM EDT) Anatomical Region Laterality Modality Mammography 09/05/2024 1:27 PM EDT Narrative 09/11/2024 10:12 AM EDT [facility] Diagnostic Imaging Department [address] [place] [address] Patient: ??DANIELE MATAMOROS ?/Age/Sex: 1955 - - F Unit#: ??[id number] ? Location/Status: ??SPDIMAM/REG CLI ? Mnemonic/Ordering Site: ??MAMDEXAAX/SPMAM Ordering Physician: ??RAMONA SINGER MD [facility] Dexa Axial Skeleton - 09/05/24 - 0101 Report Status:Signed History: Low estrogen state due to menopause. Personal history of fracture. Comparison: No comparison imaging at this institution. Findings: Bone densitometry is performed utilizing dual energy x-ray absorptiometry (DXA) in the [employer] unit. The lumbar spine and proximal femora [...] 48.2 percent ??Hip 28.3 percent. IMPRESSION: Osteoporosis. [id number] Dictating Physician: ??TEREZA EVANGELISTA MD Electronically Signed by: ??TEREZA EVANGELISTA MD Dic Date/Time: ??09/11/24 1011 Sign date/Time: ??09/11/24 1012 Procedure Note Tereza Evangelista MD - 09/17/2024 [facility] Diagnostic Imaging Department [address] [place] [address] Patient: DANIELE MATAMOROS/Age/Sex: 1955 - 68 - F Unit#: [id number] Location/Status: SPDIMAM/REG CLI Mnemonic/Ordering Site: MAMDEXAAX/SPMAM Ordering Physician: RAMONA SINGER MD Gurinder Dexa Axial Skeleton - 09/05/24 - 5772 Report Status:Signed History: Low estrogen state due to menopause. Personal history offracture. Comparison: No comparison imaging at this institution. Findings: Bone densitometry is performed utilizing dual energy x-ray absorptiometry(DXA) in the [employer] unit. The lumbar spine and proximal femora [...] 48.2 percent Hip 28.3 percent. IMPRESSION: Osteoporosis. [id number] Dictating Physician: TEREZA EVANGELISTA MD Electronically Signed by: TEREZA EVANGELISTA MD Dic Date/Time: 09/11/24 1011 Sign date/Time: 09/11/24 1012 us Ramona Singer MD IMG BI PROCEDURES Final Res ult from Last 3 Months or Most Recently Relevant to Health Maintenance Insurance [facility] Member Subscriber Plan / Payer (Ef fective 2024-Present) Name:Daniele Matamoros Relation to Subscriber:Self Name:Daniele Matamoros Payer ID:[id number] Group ID:Not on file Type:Not on file Address: [place] [address] [id number] Care Teams Administrative Office Assistant Relationship Specialty Start Date End Date Ramona Singer MD [address] [facility] [place] [address] PCP - General 11/20/12
== END 2025-03-18 14:52 | disposition home or self-care (01) ==
LOC: HO.ENCR 13:47
PROVIDERS: PCP Internal Medicine; Visit Provider Internal Medicine Endocrinology, Diabetes & Metabolism
DX: M81.0 Age-related osteoporosis without current pathological fracture (principal)
CPT/HCPCS: 99204

== ENCOUNTER → 2025-03-18 13:46 | Outpatient (BNVA) | payer OTHER, SELFPAY | PROVIDERS: PCP Internal Medicine; Visit Provider Internal Medicine Endocrinology, Diabetes & Metabolism | DX: M81.0 Age-related osteoporosis without current pathological fracture (principal); E55.9 Vitamin D deficiency, unspecified | CPT/HCPCS: 99202 ==

== ENCOUNTER 2025-09-01 13:15 | Outpatient (AMB) | payer OTHER, SELFPAY ==
--- OUTSIDE RECORDS SUMMARY | 2025-09-01 13:19 | XMS_ITS | Clinical Summary ---
Author Organization [facility] Address [address] [facility] [address] [place] [address] Phone Care Team Providers Care Bilingual Operator Name Role Phone Ramona Damico MD Primary Care Provider Allergies No known active allergies Medications MYRBETRIQ 50 mg Tb24 TAKE 1 TABLET BY MOUTH EVERY DAY 30 tablet 5 06/01/2023 Active Active Problems No known active problems Social History Tobacco Use Types Packs/Day Years Used Date Smoking Tobacco: Never Assessed Education Answer Date Recorded Are you interested in more education? Not on juan f e 03/18/2023 Are you concerned about learning? Not on file 03/18/2023 No 03/18/2023 No 03/18/2023 Digital Access Answer Date Recorded No 04/16/2023 No 04/16/2023 Reliable internet access at home? Not on file 04/16/2023 Device with a working camera? Not on file Comments Unknown Sex and Gender Information Value Date Recorded Sex Assigned at Not on file Legal Sex Female 12:55 PM EDT Gender Identity Not on file Sexual Orientation Not on file Plan of Treatment Health Maintenance Due Date Last Done Comments Adult Td,Tdap Booster 1955 LIPID PANEL 1955 DEPRESSION SCREENING 1967 SMOKING Hx and SMOKELESS TOBACCO SCREENING 1968 HEPATITIS C SCREENING 1973 MAMMOGRAM 1995 COLOGUARD 2000 COLONOSCOPY 2000 COLORECTAL CANCER SCREENING 2000 FIT TEST 2000 FOBT 2000 SIGMOIDOSCOPY 2000 VIRTUAL COLONOSCOPY 2000 ZOSTER VACCINES (1 of 2) 2005 PNEUMOCOCCAL VACCINES (50+ years) (2 of 2 - PCV) 01/08/2019 01/08/2018 OSTEOPOROSIS SCREENING INITIAL (ONE-TIME) 2020 INFLUENZA VACCINE (#1) 2025 9, 09/12/2019, 09/13/2018, Additional history exists COVID-19 VACCINE (3 - 2024- season) 2025 02/20/2021, 01/30/2021 RSV VACCINE (1 - 1-dose 75+ series) 2030 HEPATITIS A VACCINES Aged Out No long er eligible based on patient's age to complete this topic HIB VACCINES Aged Out No longer eligi ble based on patient's age to complete this topic MENINGOCOCCAL VACCINES (ACWY) Aged Out No longer eligible based on patient's age to complete this topic MENINGOCOCCAL VACCINES (B) Aged Out N o longer eligible based on patient's age to complete this topic Medical Devices Not on file Insurance MEDICARE PART A & B [facility] MEDICARE PART A & B [place] MED[place] A & B [facility] MEDIC[facility] PART A & [place] & B [facility] MEDICARE PART A & B [facility] MEDICARE PART A & B [employer] MEDICARE PART A & B [employer] Care Teams Bilingual Operator Relationship Specialty Start Date End Date Ramona Damico MD [address] [place] [address] PCP - General Internal Medicine 02/24/22 Additional Source Comments The information contained in this document represents components of the legal health record. It is not the complete legal health record.[facility]
--- OUTSIDE RECORDS SUMMARY | 2025-09-01 13:19 | XMS_ITS | Continuity of Care Document ---
Author Name [facility], Medical Address [address] [place] [address] Organization Unknown Address [address] [place] [address] Medications No known medications Problems No known problems
--- OUTSIDE RECORDS SUMMARY | 2025-09-01 13:19 | XMS_ITS | Encounter Summary ---
Author Organization [facility] Address [address] [place] [address] Care Team Providers Care It Intern Name Role Phone Ramona Damico MD Primary Care Provider [phone] Encounter Details Date Type Department Care Team (Late st Contact Info) Description 05/02/[address] [facility] - Main Lab [address] [facility] [place] [phone] Lori Weston NP [address] [facility] [address] [place] [address] Urgency of urination Social History Tobacco Use Types Packs/Day Years [...] Upcoming Encounters Date Type Department Care Team (Latest Contact Info) Description 09/02/2025 1:30 PM EDT Office Visit [facility] Associates [facility] [address] [place] [phone] Audie Bonilla MD [address] [place] [address] [place] [address] 09/15/2025 12:00 PM EDT Hospital Encounter [facility] Main OR [address] [place] [phone] [place] [address] [place] [address] 09/15/2025 12:00 PM EDT - 09/15/2025 1:30 PM EDT Surgery [facility] OR [address] [place] [phone] Stephany Vega MD [address] [place] [address] CYSTOLITHOLAPAXY [38416 (CPT )] Scheduled Procedures Name Priority Associated Diagnoses Date/Ti me CYSTOSCOPY LITHOLAPAXY STONE Calculus in bladder Malignant neoplasm of trigone of bladder ([facility] V24, [facility] V28) 09/15/2025 12:00 PM EDT CYSTOSCOPY TUR BLADDER TUMOR Calculus in bladder Malignant neoplasm of trigone of bladder ([facility] V24, [facility] V28) 09/15/2025 12:00 PM EDT documented as of this encounter Procedures Procedure Name Priority Date/Time Associated Diagnosis Comments CULTURE URINE Routine 05/02/2025 12:00 AM EDT Urgency of urination documented in this encounter Results * (ABNORMAL) Culture urine (05/02/2025 12:00 AM EDT) Culture, Urine 50,000-100,000 CFU/mL Citrobacter freundii(A) DEANNA 05/06/2025 8:10 AM EDT [facility] Comment: This is an edited result. Previous organism was Gram negative bacilli on 05/04/2025 at 1236 EDT. Culture, Urine 50,000-100,000 CFU/mL Klebsiella pneumoniae ssp pneumoniae(A) DEANNA 05/06/2025 8:10 AM EDT [facility] Comment: The organism value for this result has been updated. These results have been appended to the previously preliminary verified report. Culture, Urine 10,000-49,000 CFU/mL Aerococcus sanguinicola(A ) DEANNA 05/06/2025 8:10 AM EDT [facility] Comment: Susceptibility testing not routinely performed. If further therapeutic information is required, please consult an infectious disease specialist. The organism value for this result has been updated. These results have been appended to the previously preliminary verified report. Edited result: Previously reported as Gram Positive Cocci on 05/05/2025 at 0950 EDT. Urine Urinary bladder structure / Unknown 05/02/2025 05/02/2025 2:51 PM EDT Narrative Organism Antibiotic Method Susceptibility Citrobacter freundii Amoxicillin/Clavulanate DEANNA 4 ug/ml: Resistant Citrobacter freundii Cefoxitin DEANNA <=4 ug/ml: Resistant Citrobacter freundii Ceftazidime DEANNA <=0.5 ug/ml: Susceptible Citrobacter freundii Ceftriaxone DEANNA <=0.25 ug/ml: Susceptible Citrobacter freundii Cefepime DEANNA <=0.12 ug/ml: Susceptible Citrobacter freundii Meropenem DEANNA <=0.25 ug/ml: Susceptible Citrobacter freundii Amikacin DEANNA <=1 ug/ml: Susceptible Citrobacter freundii Gentamicin DEANNA <=1 ug/ml: Susceptible Citrobacter freundii Ciprofloxacin DAENNA <=0.06 ug/ml: Susceptible Citrobacter freundii Levofloxacin DEANNA <=0.12 ug/ml: Susceptible Citrobacter freundii Nitrofurantoin DEANNA <=16 ug/ml: Susceptible Citrobacter freundii Trimethoprim/Sulfam ethoxazo le DEANNA <=20 ug/ml: Susceptible Klebsiella pneumoniae ssp pneumoniae Amoxicillin/Clavulanate DEANNA 4 ug/ml: Susceptible Klebsiella pneumoniae ssp pneumoniae Ampicillin/Sulbactam DEANNA 4 ug/ml: Susceptible Klebsiella pneumoniae ssp pneumoniae Piperacillin/Tazobactam [...] pneumoniae Trimethoprim/Sulfamethoxazo le DEANNA >=320 ug/ml: Resistant Lori Weston [facility] LAB MICROBIOLOGY - GENERA L ORDERABLES Final Result [facility] ([facility] [address] [place] [address], documented in this encounter Visit Diagnoses Diagnosis Urgency of urination Calculus in bladder Other calculus in bladder Malignant neoplasm of trigone of bladder (CMS/HCC V24, CMS/HCC V28) Malignant neoplasm of trigone of urinary bladder documented in this encounter Care Teams It Intern Relationship Specialty Start Date End Date Ramona Damico MD [address] [place] [address] PCP - General 11/20/12 documented as of this encounter
--- OUTSIDE RECORDS SUMMARY | 2025-09-01 13:19 | XMS_ITS | Clinical Summary ---
Author Organization [facility] Address [address] [place] [address] Phone Care Team Providers Care Concrete Mixer Loader Truck Mounted Name Role Phone Ramona Singer MD Primary Care Provider Allergies No known active allergies Medications furosemide (LASIX) 20 mg tablet Take 1 tablet (20 mg total) by mouth 1 (one) time each day. 90 tablet 1 12/30/2024 Active omega-3 (Fish OiL) 300-1,000 mg capsuleIndicatio [...] unit) per tabletIndication s:Atrial fibrillation, unspecified type (CMS/HCC V24, CMS/HCC V28) Take 1 tablet by mouth 1 (one) time each day. Active Eliquis 5 mg tablet TAKE 1 TABLET BY MOUTH TWICE DAILY 180 tablet 1 06/30/2025 Active amiodarone (PACERONE) 200 mg tablet TAKE 1 TABLET(200 MG) BY MOUTH TWICE DAILY 180 tablet 1 07/29/2025 Active Active Problems Problem Noted Date Diagnosed Date HLD (hyperlipidemia) 04/14/2023 Assessment & Plan (02/17/2025 4:51 PM EDT): Lipids are managed by her primary care provider. She continues on atorvastatin 10 mg once a day. A-fib ([facility] V24, [facility] V28) 04/14/2023 Assessment & Plan (02/17/2025 4:51 [...] on Eliquis for anticoagulation given her elevated [id number]-[id number] score. We will continue to monitor her [...] hat when in direct sunlight. Heart failure (CMS/[facility] V24, [facility] V28) 023 Assessment & Plan (02/17/2025 4:51 [...] effusion no longer identified on recent echo. Family History Medical History Relation Name Comments [...] 2:04 PM EST Sexual Orientation Straight 10/08/2024 2 :04 PM EST Obstetrics History Last Filed Vital [...] 09/02/2025 1:30 PM EDT Office Visit [facility] - [facility] Center [address] [place] [address] Audie Bonilla MD [address] [place] [address] [address] [place] [address] 09/15/2025 12:00 PM EDT Hospital Encounter [facility] Main OR [address] [place] [phone] Stephany Vega MD [address] [place], [place] [phone] 09/15/2025 12:00 PM EDT - 09/15/2025 1:30 PM EDT Surgery [facility] OR [address] [place] [phone] Stephany Vega MD [facility] [place] [address] CYSTOLITHOLAPAXY [64253 (CPT )] Scheduled Procedures Name Priority Associated Diagnoses Date/Ti me CYSTOSCOPY LITHOLAPAXY STONE Calculus in bladder Malignant neoplasm of trigone of bladder ([facility] V24, CMS/HCC V28) 09/15/2025 12:00 PM EDT CYSTOSCOPY TUR BLADDER TUMOR Calculus in bladder Malignant neoplasm of trigone of bladder ([facility] V24, [facility] V28) 09/15/2025 12:00 PM EDT Health Maintenance Due Date Last Done Comments Breast Cancer Screening 1955 Colorectal Cancer Screening: Colonoscopy 1955 DTaP,Tdap,and Td Vaccines (1 - Tdap) 1974 Zoster Vaccines (1 of 2) 2005 Falls Risk Assessment 10/23/2022 Hepatitis C Screening 10/23/2022 Social Influencers of Health Screening 10/23/2022 Depression Screening 11/20/2024 COVID-19 Vaccine (3 - season) 2025 02/20/2021, 01/30/2021 Influenza Vaccine (#1) 2025 9, 09/12/2019, 09/13/2018, Additional history exists Cholesterol Screening (Lipid Panel) 02/17/2030 02/17/2025 RSV Immunization Adult Patients (1 - 1-dose 75+ series) 2030 Osteoporosis Screening (Bone Density Screening) 09/11/2034 09/11/2024 [...] on patient's age to complete this topic Goals Goal Patient Goal Type Associated Problems Recent Progress Patient-Stated? Author Autogenerat ed Goal Care Plan Autogenerated Problem No Sunitha Coronel Procedures Procedure Name Priority Date/Time Associated Diagnosis Comments LIPID PANEL Routine 02/17/2025 2:32 PM EDT Atrial fibrillation, unspecified type (CMS/HCC V24, CMS/HCC V28) [facility] DEXA AXIAL SKELETON Routine 09/11/2024 10:12 AM EDT Age-related osteoporosis without current pathological fracture from Last 3 Months or Most Recently Relevant to Health Maintenance Results * (ABNORMAL) Lipid panel (02/17/2025 2:32 PM [...] - 02/18/2025 4:06 AM EDT Performed at: 01 - [facility] [address] [id number] Metrology Technician: Emili Edward MD, Phone: [phone] us Pretty Ramos ELECTROMECHANISMS DESIGN DRAFTER LAB BLOOD ORDERABLES Final R esult [facility] 1 * GURINDER DEXA AXIAL SKELETON (09/11/2024 10:12 AM EDT) Anatomical Region Laterality Modality Mammography 09/05/2024 1:27 PM EDT Narrative 09/11/2024 10:12 AM EDT [facility] Diagnostic Imaging Department [address] [place] [address] Patient: DANIELE MATAMOROS /Age/Sex: 1955 - 68 - F Unit#: [id number] Location/Status: SPDIMAM/REG CLI Mnemonic/Ordering Site: MAMDEXAAX/SPMAM Ordering Physician: RAMONA SINGER MD Gurinder Dexa Axial Skeleton - 09/05/24 - [id number] Report Status:Signed History: Low estrogen state due to menopause. Personal history of fracture. Comparison: No comparison imaging at this institution. Findings: Bone densitometry is performed utilizing dual energy x-ray absorptiometry (DXA) in the [employer] unit. The lumbar spine and proximal femora are evaluated in the AP projection. The FRAX questionaire was completed. The results indicate osteoporosis, with a right total femur T-score of -5.1. The Z score is -4.5, indicating very low bone mineral density for age. Causes of secondary bone loss should be investigated. The detailed DEXA report will be mailed to the referring physician's office. DualFemur FRAX: 10-year Probability of Fracture: Major Osteoporotic 48.2 percent Hip 28.3 percent. IMPRESSION: Osteoporosis. [id number] Dictating Physician: TEREZA EVANGELISTA MD Electronically Signed by: TEREZA EVANGELISTA MD Dic Date/Time: 09/11/24 1011 Sign date/Time: 09/11/24 1012 Procedure Note Tereza Evangelista MD - 09/17/2024 [facility] Diagnostic Imaging Department [address] [place] [address] Patient: DANIELE MATAMOROS /Age/Sex: 1955 - 68 - F Unit#: [id number] Location/Status: SPDIMA/REG CLI Mnemonic/Ordering Site: MAMDEXAAX/SPMAM Ordering Physician: RAMONA SINGER MD Gurinder Dexa Axial Skeleton - 09/05/24 - [id number] Report Status:Signed History: Low estrogen state due to menopause. Personal history offracture. Comparison: No comparison imaging at this institution. Findings: Bone densitometry is performed utilizing dual energy x-ray absorptiometry(DXA) in the [employer] unit. The lumbar spine and proximal femora [...] 48.2 percent Hip 28.3 percent. IMPRESSION: Osteoporosis. [id number] Dictating Physician: TEREZA EVANGELISTA MD Electronically Signed by: TEREZA EVANGELISTA MD Dic Date/Time: 09/11/24 1011 Sign date/Time: 09/11/24 1012 Ramona Singer MD IMG BI PROCEDURES Final Res ult from Last 3 Months or Most Recently Relevant to Health Maintenance Additional Health Concerns Active Problems Noted Date Diagnosed Date Autogenerated Problem 08/18/2025 Insurance [facility] Member Subscriber Plan / Payer (Ef fective 2024-Present) Name:Daniele Matamoros Relation to Subscriber:Self Name:Daniele Matamoros Payer ID:[id number] Group ID:[id number] Type:Not on file Address: [place] [address] [address] [id number] Care Teams Concrete Mixer Loader Truck Mounted Relationship Specialty Start Date End Date Raomna Singer MD [address] [place] [address] PCP - General 11/20/12
--- OUTSIDE RECORDS SUMMARY | 2025-09-01 13:19 | XMS_ITS | Encounter Summary ---
Author Organization [facility] Address [address] [place] [address] Care Team Providers Care Floor Coverer Name Role Phone Ramona Damico MD Primary Care Provider Encounter Details Date Type Department Care Team (Late st Contact Info) Description 12/25/2024 Lab Requisition [facility] - Main Lab [address] [place] [phone] Lori Weston NP [address] [facility] [address] [place], [place] [phone] Gross hematuria Social History Tobacco Use Types [...] Description 09/02/2025 1:30 PM EDT Office Visit [facility] [address] [place] [phone] Audie Bonilla MD [address] [place] [address] [place] [address] 09/15/2025 12:00 PM EDT Hospital Encounter [facility] Main OR [address] [place] [phone] [place] [address] [place] [phone] 09/15/2025 12:00 PM EDT - 09/15/2025 1:30 PM EDT Surgery [facility] OR [address] [place] [phone] Stephany Vega MD [address] [place] [id number] CYSTOLITHOLAPAXY [79032 (CPT )] Scheduled Procedures Name Priority Associated Diagnoses Date/Ti me CYSTOSCOPY LITHOLAPAXY STONE Calculus in bladder Malignant neoplasm of trigone of bladder ([facility] V24, [facility] V28) 09/15/2025 12:00 PM EDT CYSTOSCOPY TUR BLADDER TUMOR Calculus in bladder Malignant neoplasm of trigone of bladder ([facility] V24, [facility] V28) 09/15/2025 12:00 PM EDT documented as of this encounter Procedures Procedure Name Priority Date/Time Associated Diagnosis Comments CULTURE URINE Routine 12/25/2024 12:00 AM EST Gross hematuria documented in this encounter Results * (ABNORMAL) Culture urine (12/25/2024 12:00 AM EST) Culture, Urine >100,000 CFU/mL Klebsiella pneumoniae ssp pneumoniae(A) DEANNA 12/28/2024 9:37 AM EST [facility] Comment: The organism value for this result has been updated. These results have been appended to the previously preliminary verified report. This is an edited result. Previous organism was Gram negative bacilli on 12/27/2024 at 1325 EST. Culture, Urine 10,000-49,000 CFU/mL Escherichia coli(A) DEANNA 12/28/2024 9:37 AM EST [facility] Comment: The organism value for this result has been updated. These results have been appended to the previously preliminary verified report. This is an edited result. Previous organism was Gram negative bacilli on 12/27/2024 at 1325 EST. Culture, Urine >100,000 CFU/mL Aerococcus sanguinicola(A ) DEANNA 12/28/2024 9:37 AM EST [facility] Comment: Susceptibility testing [...] DEANNA <=20 ug/ml: Susceptible us Lori Weston [facility] MICROBIOLOGY - GENERA L ORDERABLES Final Result [facility] [address] [place] [address], [place] [phone] documented in this encounter Visit Diagnoses Diagnosis Gross hematuria Calculus in bladder Other calculus in bladder Malignant neoplasm of trigone of bladder (CMS/HCC V24, CMS/HCC V28) Malignant neoplasm of trigone of urinary bladder documented in this encounter Care Teams Floor Coverer Relationship Specialty Start Date End Date Ramona Damico MD [address] [place] [address] PCP - General 11/20/12 documented as of this encounter
--- OUTSIDE RECORDS SUMMARY | 2025-09-01 13:19 | XMS_ITS | Encounter Summary ---
Author Organization [facility] Address [address] [place] [address] Care Team Providers Care Laboratory Equipment Installer Name Role Phone Ramona Damico MD Primary Care Provider Encounter Details Date Type Department Care Team (Late st Contact Info) Description 10/25/2024 Lab Requisition [facility] - Main Lab [address] [facility] [place] [phone] Kevin June PA [address] [facility] [address] [place] [address] Pyuria Social History Tobacco Use Types Packs/Day [...] Description 09/02/2025 1:30 PM EDT Office Visit [facility] [address] [facility] [address] [place] [phone] Audie Bonilla MD [address] [place] [address] [place] [address] 09/15/2025 12:00 PM EDT Hospital Encounter [facility] Main OR [address] [place] [phone] Stephany Vega MD [address] [place] [address] 09/15/2025 12:00 PM EDT - 09/15/2025 1:30 PM EDT Surgery [facility] OR [address] [place] [phone] Stephany Vega MD [facility] [place] [address] CYSTOLITHOLAPAXY [68962 (CPT )] Scheduled Procedures Name Priority Associated Diagnoses Date/Ti me CYSTOSCOPY LITHOLAPAXY STONE Calculus in bladder Malignant neoplasm of trigone of bladder ([facility] V24, [facility] V28) 09/15/2025 12:00 PM EDT CYSTOSCOPY TUR BLADDER TUMOR Calculus in bladder Malignant neoplasm of trigone of bladder ([facility] V24, [facility] V28) 09/15/2025 12:00 PM EDT documented as of this encounter Procedures Procedure Name Priority Date/Time Associated Diagnosis Comments BACTERIAL IDENTIFICATION AND SUSCEPTIBILITY, AEROBIC Routine 10/24/2024 12:00 AM EST Pyuria documented in this encounter Results * (ABNORMAL) Bacterial identification and susceptibility, aerobic (10/24/2024 12:00 AM EST) Culture, Bacterial ID and Sensitivity Klebsiella pneumoniae ssp pneumoniae(A) DEANNA 10/26/2024 9:39 AM EST [facility] Comment: This is an edited [...] pneumoniae Trimethoprim/Sulfamethoxazo le DEANNA >=320 ug/ml: Resistant us Kevin [facility] MICROBIOLOGY - GENERAL ORDER CAPO Final Result [facility] [address] [place] [address], documented in this encounter Visit Diagnoses Diagnosis Pyuria Other nonspecific finding on examination of urine Calculus in bladder Other calculus in bladder Malignant neoplasm of trigone of bladder ([facility]/HCC V24, [facility]/HCC V28) Malignant neoplasm of trigone of urinary bladder documented in this encounter Care Teams Laboratory Equipment Installer Relationship Specialty Start Date End Date Ramona Damico MD [address] [place] [address] PCP - General 11/20/12 documented as of this encounter
--- NOTE | 2025-09-01 13:21 | MHC.PC.OV ---
Vital Signs 09/01/25 13:47 Height 5 ft 1 in Weight 227 lb BMI 42.9 BP 112/70 Blood Pressure Location Rt brachial Position Sitting Respiration 16 Pulse 72 Pulse Source Pulse Oximeter Pulse Oximetry (%) 96 Oxygen Delivery Method Room Air Intake Visit Reasons: PE reschedule/overdue, OK PER AE Intake Note: Pt is here today for her PE: last bone density scan 07/20/21, colonoscopy 08/07/12 Congregational Care Pastor: Present Accompanied by: Grand Child Allergies No Known Allergies (No Known Allergies*) Allergy (Verified 09/01/25 13:52) pollen Allergy (Intermediate, Uncoded 09/01/25 13:52) nasal congestion Medication List - Last Reconciled 09/01/25 by Ramona Damico MD albuterol sulfate 90 mcg/actuation 2 puffs inhalation Q6H PRN amiodarone 400 mg PO DAILY apixaban (Eliquis) 5 mg PO Q12H atorvastatin 10 mg PO . every other day 90 days [Bath seat cushion As directed] blood sugar diagnostic (FreeStyle Lite Strips) Check fasting blood sugar daily daily; cholecalciferol (vitamin D3) 100 mcg (2 x 50 mcg (2,000 unit)) PO DAILY docusate sodium 100 mg PO BID furosemide 20 mg PO QAM gabapentin 600 mg (2 x 300 mg) PO BEDTIME metformin ER 500 mg PO DAILY omega-3 fatty acids 2,000 mg PO DAILY [raised toilet seat As directed] Shower Chair As directed, needs sliding shower chair, half on and half off tub [Transport wheelchair As directed] walker (Ultra-Light Rollator misc) As directed , needs with seat Tobacco use date assessed: 09/01/25 Fall risk assessment: No Falls in past year Last assessed Fall Risk: 09/01/25 Dental Screening Dental Screen Date: 09/01/25 Did you have a dental visit in the last 12 months?: No Did you have a dental problem in the last 6 months where you did not have access to dental care?: No Was dental information given to patient?: Patient declined HPI PE reschedule/overdue, OK PER AE HPI Details 69 year-old lady with history of diabetes mellitus, dyslipidemia, history of bladder squamous metaplasia, history of atrial fibrillation s/p cardioversion, history of cervical cancer, lumbar disc herniation with radiculopathy, and Osteoporosis, here today for her physical exam She has bladder stone , first identified in April [address] scan, measuring 12 mm. The stone has been present since then, with no intervention taken to date. The patient reports a history of urinary tract infections, currently under the care of Urologist , Dr. Vega. Has a Shafer catheter in place to treat urinary incontinence. Osteoporosis was diagnosed following a bone density scan in August 2024, revealing significant bone thinning with a T-score of -5.1. The patient has experienced multiple fractures, including a rib fracture from coughing and a wrist fracture from a fall on ice. She has been referred to a specialist for osteoporosis management, but treatment has been delayed due to insurance coverage issues. The patient also reports advanced degenerative disc disease and arthritis, contributing to chronic back pain and limited mobility. She has a history of severe arthritis and disc protrusion in the lumbar spine, which has been confirmed by imaging studies. The patient has not found relief from previous interventions, including injections, and is currently using a wheelchair for assistance Preventative care measures include a recommendation for colon cancer screening with cologuard testing , last colonoscopy was over ten years ago. The patient has a family history of breast cancer, and a mammogram has been ordered [facility] Medical History Osteoporosis Difficulty in walking involving joint of multiple sites Anticoagulated on Eliquis Multiple rib fractures involving four or more ribs Bladder squamous metaplasia Vitamin D deficiency Diabetes mellitus with microalbuminuria, without long-term current use of insulin History of cardioversion History of atrial fibrillation Urinary bladder incontinence Recurrent UTI (urinary tract infection) Postmenopause Pulmonary nodule, right Osteoarthritis of knees, bilateral Paresthesia of skin History of cervical cancer Herniation of lumbar intervertebral disc with radiculopathy Seasonal allergic rhinitis Dyslipidemia Surgical History History of cholecystectomy History of lumbar laminectomy Hx of total hysterectomy Family History Father Coronary artery disease COPD (chronic obstructive pulmonary disease) Mother Diabetes mellitus Hypertension Daughter Breast cancer Mental health disorder Sister Breast cancer Social History Housing: Apartment Alcohol intake: never Patient Tobacco Use Status: Former Tobacco user Tobacco use type: Cigarette Years Smoked: 21 e-Cigarette/Vaping Use: Never Used Second Hand Smoke Exposure: No Current occupational status: retired Cognitive needs: No Hearing needs: No Vision needs: Yes Questionnaire PHQ-9 Over the last 2 weeks, how often have you been bothered by any of the following problems? 1. Little interest or pleasure in doing things: not at all 2. Feeling down, depressed, or hopeless: not at all 3. Trouble falling or staying asleep, or sleeping too much: not at all 4. Feeling tired or having little energy: not at all 5. Poor appetite or overeating: not at all 6. Feeling bad about yourself - or that you are a failure or have let yourself or your family down: not at all 7. Trouble concentrating on things, such as reading the newspaper or watching television: not at all 8. Moving or speaking so slowly that other people could have noticed. Or the opposite - being so fidgety or restless that you have been moving around a lot more than usual: not at all 9. Thoughts that you would be better off or of hurting yourself in some way: not at all Total score: 0 Depression Screening Interpretation: Negative Depression Screening Done: Yes 31399 - PHQ-9 Billing: Yes Source: Developed by Drs. Adalid Butler, Sosa Hayes, Pio Alex and colleagues, with an educational carrie from [employer]. Thrive Questionnaire Date Thrive assessed: 02/14/25 AUDIT C Alcohol Use Questionnaire (AUDIT-C) 1. How often do you have a drink containing alcohol?: Never Total Score: 0 ROB-7 AMB Questionnaire ROB-7 Date ROB - 7 assessed: 02/14/25 Feeling nervous, anxious, or on edge: 0 = Not at all Not being able to stop or control worryin = Not at all Worrying too much about different things: 0 = Not at all Trouble relaxin = Not at all Being so restless that it is hard to sit still: 0 = Not at all Becoming easily annoyed or irritable: 0 = Not at all Feeling afraid as if something awful might happen: 0 = Not at all Total ROB-7 score (0-4 normal; 5-9 mild; 10-14 moderate; 15-21 severe): 0 Source: Developed by Drs. Adalid Butler, Sosa Hayes, Pio Alex and colleagues, with an educational carrie from [employer]. ROB-7 Assessment Billing ROB-7 Assessment Tool: ROB-7 Assessment 33702 Review of Systems Const Denies headache(s) and Reports weight loss ENT Denies dizziness and Denies headache(s) Card Denies chest pain and Denies dyspnea Resp Denies chest congestion and Denies dyspnea GI Denies change in bowel habits Details: Currently seeing Dr. Stoner an DR Vega, her urologist for recurrent urinary tract infection, has chronic Shafer catheter placed to manage incontinence Musc Reports abnormal gait, Denies joint swelling and Reports stiffness Skin/Breast Denies lesions and Denies rash Neuro Reports abnormal gait, Denies dizziness and Denies headache(s) Psych Reports no additional complaints Endo Denies polydipsia and Denies polyuria Scottie/Lymph Reports no additional complaints Aller/Immun Reports no additional complaints Physical exam (Primary Care) Vital Signs: Last Vital Signs Pulse 72 09/01/25 13:47 Resp 16 09/01/25 13:47 BP 112/70 09/01/25 13:47 Pulse Ox 96 09/01/25 13:47 Oxygen Delivery Method Room Air 09/01/25 13:47 BMI result Body Mass Index 42.9 Tobacco/Smoking Status: Tobacco use Status Tobacco use date assessed 09/01/25 09/01/25 13:23 Patient Tobacco Use Status Former Tobacco user 09/01/25 13:23 Tobacco use type Cigarette 09/01/25 13:23 e-Cigarette/Vaping Use Never Used 09/01/25 13:23 Depression Screening Interpretation: Negative Thrive Assessment: Date of Thrive Assessment Date Thrive assessed 02/14/25 09/01/25 13:23 Const Other: Alert oriented x3, no acute distress noted, morbidly obese, ambulatory with aid of walker and grandson present in room Nutritional Appearance: obese morbidly obese Orientation/consciousness: patient oriented x3 HENMT Mouth: Normal oral and palatal mucosa present and moist mucous membranes Eyes General: appearance normal, both eyes and all related structures Neck Neck: Yes normal visual inspection, Yes full ROM, Yes no lymphadenopathy and Yes supple Resp Auscultation: clear to auscultation bilaterally Cardio Other: S1-S2 present regular rate and rhythm GI Other: Normal bowel sounds, soft, nontender Back/Spine/Pelvis Thoracic/Lumbar Spine: paraspinal muscle tenderness on the left in the lower lumbar and thoraco-lumbar ROM limited Skin General skin exam: no rashes or lesions noted Neuro General: patient oriented x3, moves all extremities, Normal light touch and pain sensation, no focal motor deficits and CN's II-XI intact bilaterally Extrem General: Yes no joint enlargement, Yes no clubbing, cyanosis or edema and Yes no calf tenderness Psych Appearance: grossly normal and well kempt Mental Status: mental status grossly normal Speech and movement: Normal speech and movement present and Clear speech present Affect: normal affect Coding Level of Care Code Est Pt Prev Care >65y(64466) Diagnoses Annual visit for general adult medical examination with abnormal findings Z00. Dyslipidemia E78.5 History of atrial fibrillation Z86.79 Diabetes mellitus with microalbuminuria, without long-term current use of insulin E11.29; R80.9 Age-related osteoporosis without current pathological fracture M81.0 Osteoporosis type: age-related Presence of current pathological fracture: without current pathological fracture Bladder squamous metaplasia N32.89 Herniation of lumbar intervertebral disc with radiculopathy M51.16 Primary osteoarthritis of both knees M17.0 Osteoarthritis type: primary Additional Codes PHQ-9 - 54236 - PHQ-9 Billing: Yes ([id number]) ROB-7 Assessment Billing - ROB-7 Assessment Tool: ROB-7 Assessment [id number] ([id number]) Assessment & Plan Assessment & Plan (1) Annual visit for general adult medical examination with abnormal findings: Code(s): Z00. - Encounter for general adult medical examination with abnormal findings Plan: Reminded to get her fasting labs done. Reminded to get her yearly diabetes retinopathy screening, previously was seen [address] off to go Take adequate calcium in diet and vitamin-D 3 at 2000 IU per cap once a day, in addition to weight-bearing exercises to help maintain good muscle tone and weight control. Reminded to get her screening mammogram done, currently followed by Dr. Campa for her osteoporosis. Declined booster and flu shot, up-to-date with her pneumonia vaccine action, recommended to get vaccinated for prevention of herpes zoster. Cologuard test ordered for colon cancer screening (2) Dyslipidemia: Code(s): E78.5 - Hyperlipidemia, unspecified Category: Medical Plan: Reminded get her fasting lipid , orders already sent to lab and atorvastatin 10 every other day (3) History of atrial fibrillation: Code(s): Z86.79 - Personal history of other diseases of the circulatory system Category: Medical Plan: Status post cardioversion currently on amiodarone and apixaban, followed by cardiology (4) Diabetes mellitus with microalbuminuria, without long-term current use of insulin: Code(s): E11.29 - Type 2 diabetes mellitus with other diabetic kidney complication; R80.9 - Proteinuria, unspecified Category: Medical Plan: Last hemoglobin A1c was 5.6% reminded together repeat fasting done continued on metformin ER 500 mg once a day. (5) Osteoporosis: Code(s): M81.0 - Age-related osteoporosis without current pathological fracture Category: Medical Qualifiers: Osteoporosis type: age-related Presence of current pathological fracture: without current pathological fracture Qualified Code(s): M81.0 - Age-related osteoporosis without current pathological fracture Plan: Currently being followed by by endocrine continue taking vitamin-D 3 supplements 4000 units daily and take adequate calcium from dietary sources (6) Bladder squamous metaplasia: Code(s): N32.89 - Other specified disorders of bladder Category: Medical Plan: Followed by urologist, Dr. Vega (7) Herniation of lumbar intervertebral disc with radiculopathy: Code(s): M51.16 - Intervertebral disc disorders with radiculopathy, lumbar region Category: Medical Plan: s/p left L4 TEFSI last year done by Dr Boone with partial pain relief , currently on gabapentin, uses a walker for ambulation and has a transport wheelchair (8) Osteoarthritis of knees, bilateral: Code(s): M17.0 - Bilateral primary osteoarthritis of knee Category: Medical Qualifiers: Osteoarthritis type: primary Qualified Code(s): M17.0 - Bilateral primary osteoarthritis of knee Plan: takes Tylenol as needed fo pain relief Orders: Referrals Cologuard Test Z12.11 - Encounter for screening for malignant neoplasm of colon, Z12.12 - Encounter for screening for malignant neoplasm of rectum
[2025-09-01 13:47] VITALS: BP 112/70; PULSE 72; RESP 16; O2SAT 96; BMI 42.9
== END 2025-09-01 15:35 | disposition home or self-care (01) ==
LOC: HO.HMCC 13:16
PROVIDERS: PCP Internal Medicine; Visit Provider Internal Medicine
DX: Z00.01 Encounter for general adult medical examination with abnormal findings (principal); E78.5 Hyperlipidemia, unspecified; Z86.79 Personal history of other diseases of the circulatory system; E11.29 Type 2 diabetes mellitus with other diabetic kidney complication; R80.9 Proteinuria, unspecified; M81.0 Age-related osteoporosis without current pathological fracture; N32.89 Other specified disorders of bladder; M51.16 Intervertebral disc disorders with radiculopathy, lumbar region; M17.0 Bilateral primary osteoarthritis of knee

== ENCOUNTER → 2025-09-01 13:15 | Outpatient (BNVA) | payer OTHER, SELFPAY | PROVIDERS: PCP Internal Medicine; Visit Provider Internal Medicine | DX: Z00.01 Encounter for general adult medical examination with abnormal findings (principal); E78.5 Hyperlipidemia, unspecified; E11.29 Type 2 diabetes mellitus with other diabetic kidney complication; R80.9 Proteinuria, unspecified; M81.0 Age-related osteoporosis without current pathological fracture; N32.89 Other specified disorders of bladder; M51.16 Intervertebral disc disorders with radiculopathy, lumbar region; M17.0 Bilateral primary osteoarthritis of knee; Z86.79 Personal history of other diseases of the circulatory system; Z79.01 Long term (current) use of anticoagulants; Z79.84 Long term (current) use of oral hypoglycemic drugs; Z79.899 Other long term (current) drug therapy; Z13.31 Encounter for screening for depression | CPT/HCPCS: 96127; 99397 ==

== ENCOUNTER 2025-10-23 10:01 | Outpatient (REF) | payer OTHER, SELFPAY ==
--- OUTSIDE RECORDS SUMMARY | 2025-10-23 11:48 | XMS_ITS | Clinical Summary ---
Author Organization [facility] Address [address] [place] [address] Phone Care Team Providers Care Water Mechanic Name Role Phone Ramona Singer MD Primary [...] atorvastatin 10 mg once a day. A-fib (CMS/HCC V24, CMS/HCC V28) 04/14/2023 Assessment & Plan (09/02/2025 2:21 PM EDT): Patient with a history of paroxysmal atrial fibrillation that symptomatic. Patient has had no breakthrough but was requiring rhythm management with amiodarone 200 mg twice daily. Patient had borderline issues with thyroid and liver tests we will repeat those again. Will send her for PFTs. I am reluctant to decrease her amiodarone because she has had 5 ER cardioversions done in the recent past. I have told her that at some point if she has recurrence she may need to be considered for ablation or ablate and pace. She will continue with chronic anticoagulation for breakthrough` Assessment & Plan (02/17/2025 4:51 PM EDT): [...] on Eliquis for anticoagulation given her elevated [id number] score. We will continue to monitor her [...] hat when in direct sunlight. Heart failure (CMS/HCC V24, CMS/HCC V28) 023 Assessment & Plan (02/17/2025 4:51 [...] Encounters Date Type Department Care Team Description 10/15/2025 Lab Requisition [facility] - Main Lab [address] [facility] [place] [address] Essie Haines PA Urinary tract infection, site not specified 10/06/2025 1:24 PM EST - 10/06/2025 11:59 PM EST Hospital Encounter [facility] Pulmonary [address] [place] [address] Permanent atrial fibrillation (CMS/HCC V24, CMS/HCC V28) Discharge Disposition: Home or Self Care 09/18/2025 Telephone [facility] [address] [place] [address] Audie Bearden MD 09/15/2025 12:30 PM EDT Anesthesia Event [facility] Main OR [address] [place] [phone] Lukas Webb MD 09/15/2025 12:00 PM EDT - 09/15/2025 1:30 PM EDT Surgery [facility] OR [address] [place] [phone] Stephany Vega MD CYSTOLITHOLAPAXY [[id number] (CPT )] 09/15/2025 10:24 AM EDT - 09/15/2025 3:55 PM EDT Hospital Encounter [facility] OR [address] [place] [phone] Stephany Vega MD Pain; Calculus in bladder; Malignant neoplasm of trigone of bladder ([facility] V24, [facility] V28) Discharge Disposition: Home or Self Care 09/09/2025 Lab Requisition [facility] [address] [facility] [place] [phone] Essie Haines PA Urinary tract infection, site not specified 09/02/2025 1:30 PM EDT Office Visit [facility] [address] [place] [phone] Audie Bearden MD Heart failure, unspecified HF chronicity, unspecified heart failure type ([facility] V24, CMS/[facility] V28) (Primary Dx); Permanent atrial fibrillation ([facility] V24, [facility] V28) from Last 3 Months Surgical History Surgery Date Site/Laterality Comments CHOLECYSTECTOMY HERNIA REPAIR ABDOMINAL HYSTERECTOMY LUMBAR LAMINECTOMY ORIF WRIST FRACTURE CARDIOVERSION X 5 CARDIAC CATH 04/20/2023 - 05/19/2023 Medical History Medical History Date Comments Atrial fibrillation (CMS/[facility] V24, [facility] V28) Heart failure (CMS/[facility] V24, CMS/[facility] V28) Hx of osteoporosis Diabetes mellitus (CMS/[facility] V24, CMS/[facility] V28) Hydronephrosis OAB (overactive bladder) Hx: UTI (urinary tract infection) Cystitis Shfaer catheter in place Arrhythmia Pericardial effusion Hyperlipidemia Hypertension Arthritis Joint pain Fractures Cancer (CMS/HCC V24, CMS/HCC V28) 1993 CERVICAL CA WITH RADIATION Family History Medical History Relation Name Comments Other: atrial fibrillation Brother 1 Other: Other Brother 2 Heart failure Mother Relation Name Status Comments Brother 1 Brother 2 Alive Mother Social History Tobacco Use Types Packs/Day Years Used Date Smoking Tobacco: Former Cigarettes Smokeless Tobacco: Never Tobacco Cessation:Counseling Given: Not Answered Alcohol Use Standard Drinks/Week Comments Not Currently 0 (1 standard drink = 0.6 oz pur e alcohol) Interpersonal Safety Answer Date Record ed Physical Abuse Unrecognized value 09/15/2025 Verbal Abuse Unrecognized value 09/15/2025 Comments No Sex and Gender Information Value Date Recorded Sex Assigned at Female 10/08/2024 2:04 PM EST Legal Sex Female 4:02 AM EST Gender Identity Female 10/08/2024 2:04 PM EST Sexual Orientation Straight 10/08/2024 2: 04 PM EST Obstetrics History Last Filed Vital Signs Vital Sign Reading Time Taken Comments Blood Pressure 117/72 09/15/2025 2:23 PM EDT Pulse 69 09/15/2025 2:23 PM EDT Temperature 36.2 C (97.1 F) 09/15/2025 2:23 PM EDT Respiratory Rate 18 09/15/2025 2:23 PM EDT Oxygen Saturation 94% 09/15/2025 2:23 PM EDT Inhaled Oxygen Concentration - - Weight 98.4 kg (217 lb) 09/15/2025 10:51 AM EDT Height 154.9 cm (5' 1 ) 09/15/2025 10:51 AM EDT Body Mass Index 41 09/15/2025 10:51 AM EDT Plan of Treatment Health Maintenance Due Date Last Done Comments Breast Cancer Screening 1955 Colorectal Cancer Screening: Colonoscopy 1955 DTaP,Tdap,and Td Vaccines (1 - Tdap) 1974 RSV Immunization Adult Patients (1 - Risk 50-74 years 1-dose series) 2005 Zoster Vaccines (1 of 2) 2005 Hepatitis C Screening 10/23/2022 Medicare Annual Wellness Visit 10/23/2022 Social Influencers of Health Screening 10/23/2022 Depression Screening 11/20/2024 COVID-19 Vaccine ( season) 2025 02/20/2021, 01/30/2021 Influenza Vaccine (#1) 2025 9, 09/12/2019, 09/13/2018, Additional history exists Falls Risk Assessment 09/15/2026 09/15/2025 Cholesterol Screening (Lipid Panel) 02/17/2030 02/17/2025 Osteoporosis [...] Comments BACTERIAL IDENTIFICATION AND SUSCEPTIBILITY, AEROBIC Routine 10/14/2025 12:00 AM EST Urinary tract infection, site not specified HC SPIROMETRY BRONCHODILATION RESPONSIVENESS PRE/POST BRONCHODILATOR ADMINISTRATION Routine 10/06/2025 2:13 PM EST Permanent atrial fibrillation (CMS/HCC V24, CMS/HCC V28) TISSUE EXAM Routine 09/15/2025 1:16 PM EDT Calculus in bladder Malignant neoplasm of trigone of bladder (CMS/HCC V24, CMS/HCC V28) TH AN LMA(NO CHARGE) Routine 09/15/2025 12:48 PM EDT ID CYSTO W FULGURATION/RESECTION SMALL BLADDER TUMOR 0.5-2.0CM 09/15/2025 12:29 PM EDT Calculus in bladder Malignant neoplasm of trigone of bladder ([facility] V24, CMS/HCC V28) Case Notes C-ARM, HOLMIUM UMS ID LITHOLAPAXY CRUSHING/FRAGMENTATION CALCULUS ANY MEANS SMP/SMALL < 2.5CM 09/15/2025 12:29 PM EDT Calculus in bladder Malignant neoplasm of trigone of bladder (CMS/HCC V24, CMS/HCC V28) Case Notes C-ARM, HOLMIUM UMS PROCEDURAL ECG Routine 09/15/2025 10:59 AM EDT POCT GLUCOSE BLOOD Routine 09/15/2025 10:42 AM EDT BACTERIAL IDENTIFICATION AND SUSCEPTIBILITY, AEROBIC Routine 09/08/2025 12:00 AM EDT Urinary tract infection, site not specified LIPID PANEL Routine 02/17/2025 2:32 PM EDT Atrial fibrillation, unspecified type (CMS/[facility] V24, CMS/[facility] V28) GURINDER DEXA AXIAL SKELETON Routine 09/11/2024 10:12 AM EDT Age-related osteoporosis without current pathological fracture from Last 3 Months or Most Recently Relevant to Health Maintenance Results * Baterial identification and susceptibility, aerobic (10/14/2025 12:00 AM EST) Only the most recent of2 resultswithin the time period is included. Culture, Bacterial ID and Sensitivity Mixed urogenital evelyn, no uropathogens present. Suggest repeat specimen, if clinically indicated. 10/15/2025 10:18 AM EST [facility] Other Urine specimen from urinary conduit / Unknown 10/14/2025 10/15/2025 9:26 AM EST Essie RENTERIA LAB MICROBIOLOGY - GENERAL ORDERABLES Final Result [facility] ([facility]) HOSPITAL LAB [address] [place] [address], [place] [phone] * Pulmonary function testing: Carbon Monoxide Diffusing Capacity, Nitrogen Wash Out, Spirometry with Bronchodilator (10/06/2025 2:13 PM EST) Narrative Kacie Tate MD - 10/06/2025 5:52 PM EST Table formatting from the original result was not included. Images from the original result were not included. [facility] Pulmonary Lab [address] [place] [address] Pulmonary Functions Report Date of service: 10/06/25 Patient Name: Daniele Matamoros Date of : 1955 Age: 69 y.o. Gender: female Procedure Order: Pulmonary function testing: Carbon Monoxide Diffusing Capacity, Nitrogen Wash Out, Spirometry with Bronchodilator Ordering Provider: Audie Bearden MD Reason for Exam: Order Questions Answers Reason for Exam: Amiodarone toxicity Which PFTs would you like to perform? Carbon Monoxide Diffusing Capacity,Nitrogen Wash Out,Spirometry with Bronchodilator Diagnosis listed on Order: Permanent atrial fibrillation ([facility] V24, [facility] V28) Pulmonary Test Finding: Spirometry/ Flow Volume Loop: FEV1/FVC 72%. FEV1 is 1.77 at 93%, w/ z score -0.42. FVC is 102%. No bronchodilator response. Lung Volumes: TLC is 91%, w/ z score -0/72. RV is 91%. RV/TLC 100%. Diffusion Capacity: DLCO is 62%, (adjusted 61%). Shape of the flow-volume loop mild showed neither intrathoracic nor extrathoracic obstruction. Quality of Study: Meets ATS criteria for acceptability and repeatability Refer to scanned report for all additional results and graphs. Interpretation/Impression: Mild obstruction. No restriction. Mild decrease in diffusion. Findings consistent with mild obstructive lung disease. us Audie Bearden MD PFT ORDERABLES Final Result * Tissue exam (09/15/2025 1:16 PM EDT) Final Diagnosis Bladder tumor, transurethral resection: - Keratinizing squamous mucosa and abundant degenerating inflammatory debris associated with scattered bacterial colonies. (See note.) Note: Much of the tissue comprises aggregates of degenerating inflammatory cells and debris. Occasional colonies of bacteria are noted. There are fragments of predominantly detached keratinizing squamous mucosa present (most likely metaplasia). However, there is no viable-appearing tissue that is diagnostic of carcinoma and there is no intact muscular tissue identified. 09/16/2025 5:13 PM EDT [facility] at 1713 EDT Comment Designer/Writer slide(s) from this case have been presented at Anatomic Pathology Intradepartmental Review Conference on 09/16/25. 09/16/2025 5:13 PM EDT [facility] Gross Description A. Urinary Bladder, BLADDER TUMOR: Labeled bladder, bladder . Received in formalin with a Telfa pad is a 2.7 cm aggregate of irregular friable cardenas-pink soft tissue fragments which is wrapped in paper and submitted in toto in two cassettes, multiple pieces. GERHARD 09/16/2025 5:13 PM EDT [facility] Disclaimer Unless otherwise specified, all tissue is 10% NB formalin fixed and paraffin embedded. 09/16/2025 5:13 PM EDT [facility] Tissue Urinary bladder structure / Unknown 09/15/2025 1:16 PM EDT 09/15/2025 2:51 PM EDT us Stephany Vega MD LAB PATHOLOGY ORDERABLES Final Result [facility] [address] [place] [address], * TH AN LMA(NO CHARGE) (09/15/2025 12:48 PM EDT) Narrative Kassy Burns CRNA - 09/15/2025 12:48 PM EDT Kassy Burns CRNA 09/15/2025 12:49 PM General Information and Staff Patient location during procedure: OR Performed by: Kassy Burns CRNA Authorized by: Lukas Webb MD Intubation Additional Comments LMA placed by novelty dipper student Casey Maynard Under anes team supervision. Reason: elective Final Airway Details LMA Size: 4 LMA Type: LMA Seal Pressure: Final airway type: LMA Indications and Patient Condition Indications for airway management: anesthesia Sedation level: Yes Preoxygenated: yesSoft Tissue Damage: No Dentition Unchanged: Yes Patient position: neutral Lukas Webb MD ANESTHESIA ORDERABLES Final Re sult * ECG 12 lead - Procedural (No Charge) (09/15/2025 10:59 AM EDT) Ventricular Rate ECG 62 BPM GEMUSE Atrial Rate 62 BPM GEMUSE P-R Interval 166 ms GEMUSE QRS Duration 88 ms GEMUSE Q-T Interval 470 ms GEMUSE QTc 477 ms GEMUSE P Wave [place] 9 degrees GEMUSE R [place] -11 degrees GEMUSE T [place] -7 degrees GEMUSE ECG Interpretation Normal sinus rhythm Normal ECG When compared with ECG of 17-FEB-2025 14:08, Inverted T waves have replaced nonspecific T wave abnormality in Inferior leads Confirmed by Serenity BEARDEN JAMES ([id number]) on 09/15/2025 4:12:34 PM GEMUSE 09/15/2025 10:5 9 AM EDT 09/15/2025 4:12 PM EDT Result [facility] Stephany Vega MD ECG ORDERABLES Final Re sult GEMUSE * (ABNORMAL) POCT Glucose, blood (09/15/2025 10:42 AM EDT) Glucose POCT 121(H) 70 - 100 mg/dL 09/15/2025 10:45 AM EDT [facility] Blood Capillary blood specimen / Unknown 09/15/2025 10:42 AM EDT 09/15/2025 10:46 AM EDT Stephany Vega MD LAB POINT OF CAR E TEST DOCKED DEVICE UNSOLICITED RESULTS Final Result [facility] ([facility] HOSPITAL LAB [address] [place] [address], * (ABNORMAL) Lipid panel (02/17/2025 2:32 PM [...] 4:06 AM EDT Performed at: 01 - [facility] [id number] Student Services Advisor: Emili Edward MD, Phone: [phone] us Pretty Ramos PROJECT EXECUTIVE LAB BLOOD ORDERABLES Final R esult [facility] 1 * GURINDER DEXA AXIAL SKELETON (09/11/2024 10:12 AM EDT) Anatomical Region Laterality Modality Mammography 09/05/2024 1:27 PM EDT Narrative 09/11/2024 10:12 AM EDT [facility] Diagnostic Imaging Department [address] [place] [address] Patient: DANIELE MATAMOROS./Age/Sex: 1955 - 68 - F Unit#: [id number] Location/Status: SPDIMAM/REG CLI Mnemonic/Ordering Site: MAMDEXAAX/SPMAM Ordering Physician: RAMONA SINGER MD [facility] Dexa Axial Skeleton - 09/05/24 - 1408 Report Status:Signed History: Low estrogen state due to menopause. Personal history of fracture. Comparison: No comparison imaging at this institution. Findings: Bone densitometry is performed utilizing dual energy x-ray absorptiometry (DXA) in the [employer] unit. The lumbar spine and proximal femora [...] 48.2 percent Hip 28.3 percent. IMPRESSION: Osteoporosis. [id number] Dictating Physician: TEREZA EVANGELISTA MD Electronically Signed by: TEREZA EVANGELISTA MD Dic Date/Time: 09/11/24 1011 Sign date/Time: 09/11/24 1012 Procedure Note Tereza Evangelista MD - 09/17/2024 [facility] Diagnostic Imaging Department [address] [place] [address] [id number] Patient: DANIELE MATAMOROS/Age/Sex: 1955 - 68 - F Unit#: [id number] Location/Status: SPDIMAM/REG CLI Mnemonic[facility] Ordering Physician: RAMONA SINGER MD Gurinder Dexa Axial Skeleton - 09/05/24 - 2672 Report Status:Signed History: Low estrogen state due to menopause. Personal history offracture. Comparison: No comparison imaging at this institution. Findings: Bone densitometry is performed utilizing dual energy x-ray absorptiometry(DXA) in the [employer] unit. The lumbar spine and proximal femora [...] 48.2 percent Hip 28.3 percent. IMPRESSION: Osteoporosis. [id number] Dictating Physician: TEREZA EVANGELISTA MD Electronically Signed by: TEREZA EVANGELISTA MD Dic Date/Time: 09/11/24 1011 Sign date/Time: 09/11/24 1012 Ramona Singer MD IMG BI PROCEDURES Final Res ult from Last 3 Months or Most Recently Relevant to Health Maintenance Insurance [facility] [employer] Member Subscriber Plan / Payer (Ef fective 2024-Present) Name:Daniele Matamoros Relation to Subscriber:Self Name:Daniele Matamoros Payer ID:[id number] Group ID:[id number] Type:Not on file Address: [place] [address] [address] [id number] Care Teams Water Mechanic Relationship Specialty Start Date End Date Ramona Singer MD [address] [place] [address] PCP - General 11/20/12
--- OUTSIDE RECORDS SUMMARY | 2025-10-23 11:48 | XMS_ITS | Encounter Summary ---
Author Organization [facility] Address [address] [place] [address] Care Team Providers Care Automobile Technician Name Role Phone Ramona Damico MD Primary Care Provider Encounter Details Date Type Department Care Team (Late st Contact Info) Description 05/02/2025 Lab Requisition [facility] - Main Lab [address] [facility] [place] [phone] Lori Weston NP [address] [facility] [address] [place] [address] Urgency of urination Social History Tobacco Use [...] as of this encounter Plan of Treatment Not on file documented as of this encounter Procedures Procedure Name Priority Date/Time Associated Diagnosis Comments CULTURE URINE Routine 05/02/2025 12:00 AM EDT Urgency of urination documented in this encounter Results * (ABNORMAL) Culture urine (05/02/2025 12:00 AM EDT) Culture, Urine 50,000-100,000 CFU/mL Citrobacter freundii(A) DEANNA 05/06/2025 8:10 AM EDT [facility] Comment: This is an edited result. Previous organism was Gram negative bacilli on 05/04/2025 at 1236 EDT. Culture, Urine 50,000-100,000 CFU/mL Klebsiella pneumoniae ssp pneumoniae(A) DEANNA 05/06/2025 8:10 AM EDT [facility] Comment: The organism value for this result has been updated. These results have been appended to the previously preliminary verified report. Culture, Urine 10,000-49,000 CFU/mL Aerococcus sanguinicola(A ) DEANNA 05/06/2025 8:10 AM EDT [facility] Comment: Susceptibility testing not routinely performed. [...] DEANNA <=1 ug/ml: Susceptible Citrobacter freundii Ciprofloxacin DEANNA <=0.06 ug/ml: Susceptible Citrobacter freundii Levofloxacin DEANNA [...] le DEANNA >=320 ug/ml: Resistant Lori Weston TANK CAR INSPECTOR LAB MICROBIOLOGY - GENERA L ORDERABLES Final Result [facility] ([facility]) [facility] [address] [place] [address], documented in this encounter Visit Diagnoses Diagnosis Urgency of urination documented in this encounter Care Teams Automobile Technician Relationship Specialty Start Date End Date Ramona Damico MD [address] [place] [address] PCP - General 11/20/12 documented as of this encounter
--- OUTSIDE RECORDS SUMMARY | 2025-10-23 11:48 | XMS_ITS | Encounter Summary ---
Author Organization [facility] Address [address] [place] [address] Care Team Providers Care Assembler Erector Name Role Phone Ramona Damico MD Primary Care Provider Encounter Details Date Type Department Care Team (Late st Contact Info) Description 12/25/2024 Lab Requisition [facility] - Main Lab [address] [place] [phone] Lori Weston NP [address] [facility] [address] [place] [address] Gross hematuria Social History Tobacco Use Types [...] ssp pneumoniae(A) DEANNA 12/28/2024 9:37 AM EST [place] [...] DEANNA <=20 ug/ml: Susceptible us Lori Weston DIRECTOR GAME LAB MICROBIOLOGY - GENERA L ORDERABLES Final Result Performing Organization Address City/State/[facility] Co de Phone Number [facility]) HOSPITAL LAB [address] [place] [address], documented in this encounter Visit Diagnoses Diagnosis Gross hematuria documented in this encounter Care Teams Assembler Erector Relationship Specialty Start Date End Date Ramona Damico MD [address] [place] [address] PCP - General 11/20/12 documented as of this encounter
--- OUTSIDE RECORDS SUMMARY | 2025-10-23 11:48 | XMS_ITS | Encounter Summary ---
Author Organization [facility] Address [address] [place] [address] Care Team Providers Care Meter Maker Name Role Phone Ramona Damico MD Primary Care Provider Encounter Details Date Type Department Care Team (Late st Contact Info) Description 09/09/2025 Lab Requisition [facility] - Main Lab [address] [facility] [place] [phone] [place] [address] [place] [address] Urinary tract infection, site not specified Social History Tobacco Use Types Packs/Day Years Used Date Smoking Tobacco: Former Cigarettes Smokeless Tobacco: Never Alcohol Use Standard Drinks/Week [...] Comments BACTERIAL IDENTIFICATION AND SUSCEPTIBILITY, AEROBIC Routine 09/08/2025 12:00 AM EDT Urinary tract infection, site not specified documented in this encounter Results * (ABNORMAL) Baterial identification and susceptibility, aerobic (09/08/2025 12:00 AM EDT) Culture, Bacterial ID and Sensitivity Klebsiella pneumoniae ssp pneumoniae(A) DEANNA 09/11/2025 8:16 AM EDT [facility] Comment: This is an edited result. Previous organism was Gram negative bacilli on 09/10/2025 at 1340 EDT. Other Urine specimen from urinary conduit / Unknown 09/08/2025 09/09/2025 11:06 AM EDT Narrative Organism Antibiotic Method Susceptibility Klebsiella pneumoniae [...] Trimethoprim/Sulfamethoxazo le DEANNA >=320 ug/ml: Resistant us Essie RENTERIA LAB MICROBIOLOGY - GENERAL ORDERABLES Final Result [facility] [address] [place] [address], [place] [phone] documented in this encounter Visit Diagnoses Diagnosis Urinary tract infection, site not specified documented in this encounter Care Teams Meter Maker Relationship Specialty Start Date End Date Ramona Damico MD [address] [place] [address] PCP - General 11/20/12 documented as of this encounter
--- OUTSIDE RECORDS SUMMARY | 2025-10-23 11:48 | XMS_ITS | Clinical Summary ---
Author Organization [facility] Address [address] [facility] [address] [place] [address] Phone Care Team Providers Care Elevator Erector Name Role Phone Ramona Damico MD [...] file Insurance MEDICARE PART A & B Member Subscriber Plan / Payer (Ef fective 2020-Present) Name:Lorelei Driscoll Member ID:[id number] Relation to Subscriber:Self Name:Lorelei Driscoll Subscriber ID:[id number] Payer ID:[id number] Group ID:Not on file Type:Medicare Address: [facility] [employer] [facility] [address] [facility] [place] [address] [facility] MEDICARE PART A & B [place] MEDICARE PART A & B [facility] & [place] MED[place]ARE PART A & [place] PART A & B [facility] & B [facility] MEDICARE PART A & B [employer] MEDICARE PART A & B [employer] Care Teams Elevator Erector Relationship Specialty Start Date End Date Ramona Damico MD [address] [facility] [place] [address] PCP - General Internal Medicine 02/24/22 Additional Source Comments The information contained in this document represents components of the legal health record. It is not the complete legal health record.[facility]
--- OUTSIDE RECORDS SUMMARY | 2025-10-23 11:48 | XMS_ITS | Encounter Summary ---
Author Organization [facility] Address [address] [place] [address] Care Team Providers Care Boiler Setter Name Role Phone Ramona Damico MD Primary Care Provider [phone] Encounter Details Date Type Department Care Team (Late st Contact Info) Description 10/15/[address] [facility] - Main Lab [address] [facility] [place] [phone] Essie [place], [place] [address] [place] [address] Urinary tract infection, site not specified Social [...] EST Urinary tract infection, site not specified documented in this encounter Results * Baterial identification and susceptibility, aerobic (10/14/2025 12:00 AM EST) Culture, Bacterial ID and Sensitivity Mixed urogenital evelyn, no uropathogens present. Suggest repeat specimen, if clinically indicated. 10/15/2025 10:18 AM EST [facility] Other Urine specimen from urinary conduit / Unknown 10/14/2025 10/15/2025 9:26 AM EST us [facility] MICROBIOLOGY - GENERAL ORDERABLES Final Result [facility] [address] [place] [address], documented in this encounter Visit Diagnoses Diagnosis Urinary tract infection, site not specified documented in this encounter Care Teams Boiler Setter Relationship Specialty Start Date End Date Ramona Damico MD [address] [place] [address] PCP - General 11/20/12 documented as of this encounter
--- OUTSIDE RECORDS SUMMARY | 2025-10-23 11:48 | XMS_ITS | Encounter Summary ---
Author Organization [facility] Address [address] [place] [address] Care Team Providers Care Hand Polisher Name Role Phone Ramona Damico MD Primary Care Provider Encounter Details Date Type Department Care Team (Late st Contact Info) Description 10/25/2024 Lab Requisition [facility] - Main Lab [address] [facility] [place] [id number] Kevin June PA [address] [place] [address] Pyuria Social History Tobacco Use Types Packs/Day [...] ssp pneumoniae(A) DEANNA 10/26/2024 9:[address] [facility] Comment: This is an edited result. [...] MICROBIOLOGY - GENERAL ORDER CAPO Final Result [facility]) [facility] [address] [place] [address], documented in this encounter Visit Diagnoses Diagnosis Pyuria Other nonspecific finding on examination of urine documented in this encounter Care Teams Hand Polisher Relationship Specialty Start Date End Date Ramona Damico MD [address] [place] [address] PCP - General 11/20/12 documented as of this encounter
[2025-10-23 13:00] LABS: MANUAL DIFF FLAG NO
[2025-10-23 13:09] LABS: Hematocrit 37.9 % (37.0-47.0); Hemoglobin 11.5 g/dl (12.0-16.0); Imm Gran Abs Auto 0.13 X10*3/uL (0.00-0.03); Imm Gran Pct Auto 1.8 % (0.0-0.4); Lymphocytes Absolute Auto 1.9 X10*3/uL (1.2-4.9); Mean Corpuscular HGB Conc 30.3 g/dl (31.0-35.0); Mean Corpuscular Hemoglobin 29.2 pg (27.0-33.0); Mean Corpuscular Volume 96.2 fL (80.0-98.0); NRBC Abs Auto 0.000 X10*3/uL (0.0-0.012); NRBC Pct Auto 0.0 /100WBC (0.0-0.2); Platelet Count 215 X10*3/uL (160-400); Red Blood Count 3.94 X10*6/uL (4.20-5.50); White Blood Count 7.3 X10*3/uL (4.8-10.8)
[2025-10-23 13:27] LABS: Alanine Aminotransferase 17 U/L (0-31); Anion Gap 10 (12-20); Aspartate Amino Transferase 71 U/L (5-31); Blood Urea Nitrogen 10 mg/dL (9-16); Calcium 8.2 mg/dL (8.4-10.2); Carbon Dioxide 31 mmol/L (22-29); Chloride 107 mmol/L (96-108); Cholesterol 128 mg/dL (<200); Estimated Glomerular Filt Rate > 60; HDL Cholesterol 36 mg/dL (>40); Iron 41 mcg/dL (30-160); Percent Iron Saturation 16 % (15-50); Potassium 3.5 mmol/L (3.3-5.1); Sodium 144 mmol/L (135-145); Total Iron Binding Capacity 250 mcg/dL (228-428); Triglycerides 125 mg/dL (<150); Unsaturated Iron Binding 209 ug/dL
[2025-10-23 13:32] LABS: Alanine Aminotransferase 18 U/L (0-31); Albumin Level 3.3 g/dL (3.5-5.0); Alkaline Phosphatase 128 U/L (39-117); Anion Gap 12 (12-20); Aspartate Amino Transferase 69 U/L (5-31); Blood Urea Nitrogen 10 mg/dL (9-16); Calcium 8.4 mg/dL (8.4-10.2); Carbon Dioxide 30 mmol/L (22-29); Chloride 107 mmol/L (96-108); Estimated Glomerular Filt Rate > 60; Potassium 3.7 mmol/L (3.3-5.1); Sodium 145 mmol/L (135-145); Total Protein 7.2 g/dL (6.5-8.0)
[2025-10-23 14:41] LABS: Free T4 (Free Thyroxine) 0.88 ng/dL (0.71-1.85)
== END 2025-10-23 10:02 | disposition home or self-care (01) ==
LOC: HO.HMGCLDS 10:01
PROVIDERS: Absent Provider Internal Medicine Cardiovascular Disease; PCP Internal Medicine; Visit Provider Internal Medicine
DX: E11.29 Type 2 diabetes mellitus with other diabetic kidney complication (principal); I50.9 Heart failure, unspecified; E55.9 Vitamin D deficiency, unspecified; E78.5 Hyperlipidemia, unspecified; Q78.2 Osteopetrosis; R80.9 Proteinuria, unspecified; Z78.0 Asymptomatic menopausal state; Z79.01 Long term (current) use of anticoagulants
CPT/HCPCS: 36415; 80048; 80053; 80061; 82306; 83036; 83540; 84439; 84443; 84450; 84460; 84481; 85025